=== PATIENT | female | born 1965 | race Caucasian/White ===

== ENCOUNTER → 2021-12-25 10:04 | Outpatient (CLI) | payer OTHER, SELFPAY | PROVIDERS: PCP Nurse Practitioner Family; Visit Provider Nurse Practitioner | DX: U07.1 COVID-19 (principal) | CPT/HCPCS: C9803; U0003; U0005 ==

== ENCOUNTER → 2022-02-20 13:49 | Outpatient (CLI) | payer BC, SELFPAY ==
--- NOTE | 2022-02-20 | CA_ITS ---
FINAL REPORT TECHNIQUE: Ultrasound images of the deep venous system were obtained from the left groin to the calf veins. CLINICAL HISTORY: Left lower back pain thru left leg to ankle FINDINGS: The deep venous system is normally compressible. Normal flow is identified. IMPRESSION: No evidence of left lower extremity DVT. Reviewed, Interpreted and Dictated by Michael Villarreal MD Transcribed by Sergio Camacho Authenticated by Michael Villarreal MD on 02/20/2022 03:58:45 PM [facility]
== END ==
PROVIDERS: PCP Nurse Practitioner Family; Visit Provider Nurse Practitioner Family
DX: M79.605 Pain in left leg (principal)
CPT/HCPCS: 93971

== ENCOUNTER → 2022-12-12 09:24 | Outpatient (CLI) | payer BC, SELFPAY ==
--- NOTE | 2022-12-12 09:30 | XR_ITS ---
FINAL REPORT CLINICAL HISTORY: RT ANKLE PAIN FINDINGS: Right ankle Three views were obtained. There is no acute fracture or dislocation. The joint spaces appear normal. No soft tissue abnormality is identified. There is a plantar calcaneal spur. IMPRESSION: No acute process. Reviewed, Interpreted and Dictated by Geovanny Riggs III, MD Transcribed by Birdie Blackwell Authenticated and [facility]
== END ==
PROVIDERS: PCP Nurse Practitioner Family; Visit Provider Nurse Practitioner Family
DX: M25.571 Pain in right ankle and joints of right foot (principal)
CPT/HCPCS: 73610

== ENCOUNTER 2025-07-10 12:54 | Emergency (ER) | payer OTHER, SELFPAY ==
[2025-07-10] VITALS (10 sets, daily range): BP systolic 108–146; BP diastolic 55–86; PULSE 60–76; RESP 9–17; TEMP 36.6–36.8; O2SAT 95–100; BMI 25.1
--- NOTE | 2025-07-10 13:06 | ECG_ITS ---
APPROVED REPORT Exam: Resting ECG HR:57 bpm ECG Measurements Heart Rate 57 AXES DC 149 P 79 QRSd 93 QRS 88 QT 395 T 71 QTc 389 Conclusion SINUS BRADYCARDIA BORDERLINE ECG UNCONFIRMED REPORT Electronically signed by : ALVARO MELENDEZ, 07/10/2025 23:43:05
--- OUTSIDE RECORDS SUMMARY | 2025-07-10 13:13 | XMS_ITS | Encounter Summary ---
Author Organization Healthcare Address [address] [place] [address] Care Team Providers Care Juice Bar Team Member Name Role Phone Omid Allen MD Primary Care Provider [phone] Edy Valdes APRN Primary Care Provider [phone] Reason for Visit * Reason Comments Med Refill Encounter Details Date Type Department Care Team (Late st Contact Info) Description 05/29/2022 Refill [facility] [address], [address] [place] [address] Cherelle Samuel MD [address] [place] [address] Seropositive rheumatoid arthritis of multiple sites (CMS/[facility]) Social History Tobacco Use Types Packs/Day Years Used Date Smoking Tobacco: Former Smokeless Tobacco: Current Comments:Current vape user Alcohol Use Standard Drinks/Week Comments Yes 0 (1 standard drink = 0.6 oz pure alcohol) Alcoholic Drinks/day: Minimum alcohol consumption PHQ-2 Answer Date Recorded Patient Health Questionnaire-2 Score 0 12/31/2021 Comments Unknown Sex and Gender Information Value Date Recorded Sex Assigned at Not on file Legal Sex Female 7:38 PM EDT Gender Identity Not on file Sexual Orientation Not on file documented as of this encounter Plan of Treatment Upcoming Encounters Date Type Department Care Team (Late st Contact Info) Description 08/31/2025 10:30 AM EDT Office Visit [facility] [address] [place] [address] Mason Barraza, DRYWALL WORKER [address] [place] [address] documented as of this encounter Visit Diagnoses Diagnosis Seropositive rheumatoid arthritis of multiple sites (CMS/HCC) documented in this encounter Additional Health Concerns Assessment Noted Time A fall risk assessment has been complete d for the patient 12/31/2021 9:52 AM EST documented as of this encounter Care Teams Juice Bar Team Member Relationship Specialty Start Date End Date Omid Allen MD [address] [place] [id number] PCP - General 04/12/21 01/15/23 Edy Valdes APRN [address] [place] [id number] PCP - General 01/16/23 documented as of this encounter
--- OUTSIDE RECORDS SUMMARY | 2025-07-10 13:14 | XMS_ITS | Clinical Summary ---
Author Organization Healthcare Address [address] [place] [address] Care Team Providers Care Coal Hiker Name Role Phone Edy Valdes Chan MENDIETA Primary Care Provider [phone] Allergies No known active allergies Medications Calcium Carb-Cholecalcifero l 500-600 MG-UNIT tablet Take by mouth 1 (one) time each day. 7 Active levothyroxine (Synthroid, Levoxyl) 75 MCG tablet Take 1 tablet (75 mcg) by mouth 1 (one) time each day. 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 Do not crush, chew, or split. 180 tablet 1 5 Active gabapentin (Neurontin) 300 MG capsuleIndications: Fibromyalgia Take 1 capsule (300 mg) by mouth in the morning and 1 capsule (300 mg) in the evening and 1 capsule (300 mg) before bedtime. 270 capsule 1 5 Active etanercept (Enbrel SureClick) 50 MG/ML injectionIndication s:Seropositive rheumatoid arthritis of multiple sites (CMS/HCC) Inject 1 mL (50 mg) under the skin 1 (one) time per week. 4 mL 7 5 Active Active Problems Problem Noted Date Diagnosed Date Osteoarthritis 11/02/2019 Osteopenia 10/04/2018 Elevated liver enzymes 04/20/2018 Osteoarthritis of shoulders, bilateral 7 Goiter 10/20/2016 Rheumatoid arthritis 10/20/2016 Knee pain 03/02/2015 Rotator cuff dysfunction 03/02/2015 Elevated glucose 12/22/2014 Lumbago 12/22/2014 Immunizations Immunization Administration Dates Next Due Influenza, Unspecified 11/27/2014 Edgardo COVID-19 Vaccine (Blue Cap) 18+ 07/18/20 21 MMR 08/28/2008 Pneumococcal Polysaccharide PPV23 11/27/2014 Varicella 08/28/2008 Family History Medical History Relation Name Comments Colon cancer Father Conversions - Other Father Blockage of coronary artery of heart Diabetes Maternal Grandmother COPD Mother Hypertension Other Relation Name Status Comments Father Maternal Grandmother Mother Other Social History Tobacco Use Types Packs/Day Years Used Date Smoking Tobacco: Former Smokeless Tobacco: Never Tobacco Cessation:Counseling Given: Not Answered Comments:Current vape user Alcohol Use Standard Drinks/Week Comments Not Currently 0 (1 standard drink = 0.6 oz pure alcohol) Alcoholic Drinks/day: Minimum alcohol consumption PHQ-2 Answer Date Recorded Patient Health Questionnaire-2 Score 0 02/15/2025 PHQ-2A Answer Date Recorded Patient Health Questionnaire-2 Score 0 07/17/2023 Comments Unknown Sex and Gender Information Value Date Recorded Sex Assigned at Not on file Legal Sex Female 7:38 PM EDT Gender Identity Not on file Sexual Orientation Not on file Last Filed Vital Signs Vital Sign Reading Time Taken Comments Blood Pressure 107/71 02/15/2025 12:23 PM EDT Pulse 66 02/15/2025 12:23 PM EDT Temperature 36.4 C (97.5 F) 02/15/2025 12:23 PM EDT Respiratory Rate 16 02/15/2025 12:23 PM EDT Oxygen Saturation 95% 02/15/2025 12:23 PM EDT Inhaled Oxygen Concentration - - Weight 71.3 kg (157 lb 3 oz) 02/15/2025 12:23 PM EDT Height 165.1 cm (5' 5 ) 02/15/2025 12:23 PM EDT Body Mass Index 26.16 02/15/2025 12:23 PM EDT Plan of Treatment Upcoming Encounters Date Type Department Care Team (Late st Contact Info) Description 08/31/2025 10:30 AM EDT Office Visit [facility] Medicine Specialties [address] [place] [address] Mason Barraza W, TELECOMMUNICATIONS MANAGER [address] [place] [address] Health Maintenance Due Date Last Done Comments [facility]-HIV Screening 1963 [facility]-/Child/Adol SDOH Screenings 1963 [facility]- SDOH Screenings 1981 [facility]-Adult SDOH Screenings 1981 [facility]-DTaP,Tdap,and Td Vaccines (1 - Tdap) 1982 [facility]-Pap Smear 1984 [facility]-Cervical Cancer Screening 1993 [facility]-HPV/Cotest 1993 CT Colonography 2008 Colonoscopy 2008 FIT-DNA 2008 FIT 2008 FOBT 2008 Sigmoidoscopy 2008 [facility]-Colorectal Cancer Screening 2008 [facility]-Breast Cancer Screening 2013 [facility]-Zoster Vaccines (1 of 2) 2013 08/28/2008 [facility]-Pneumococcal Vaccine: 50+ Years (2 of 2 - PCV) 11/27/2015 11/27/2014 [facility]-BNTRR-22 Vaccine (2 - Edgardo risk series) 08/15/2021 07/18/2021 [facility]-RSV Vaccine: 60+ Years or (1 - Risk 60-74 years 1-dose series) 2023 [facility]-Influenza Vaccine (#1) 2025 11/27/2014 [facility]-Depression Screening 02/15/2026 02/15/2025 [facility]-Hepatitis C Screening Completed 06/06/2015 [facility]-Obesity Intervention Completed 025, 08/02/2024, 01/19/2024, Additional history exists HPV Vaccines Aged Out No longer eligi ble based on patient's age to complete this topic [facility]-HIB Vaccines Aged Out No longer e ligible based on patient's age to complete this topic [facility]-Hepatitis A Vaccines Aged Out No longer eligible based on patient's age to complete this topic [facility]-IPV Vaccines Aged Out No longer e ligible based on patient's age to complete this topic [facility]-Rotavirus Vaccines Aged Out No lo nger eligible based on patient's age to complete this topic Procedures Procedure Name Priority Date/Time Associated Diagnosis Comments HEPATITIS C ANTIBODY W/REFLEX TO HCV QUANT PCR Routine 06/06/2015 1:08 PM EDT from Last 3 Months or Most Recently Relevant to Health Maintenance Results * Hepatitis C Antibody (06/06/2015 1:08 PM EDT) Hepatitis C Antibody NEGATIVE Reference Range: Negative SUNQUEST 06/06/2015 1:08 PM EDT 06/06/2015 1:43 PM EDT Historical Provider LAB BLOOD ORDERABLES Trina nguyen Result SUNQUEST from Last 3 Months or Most Recently Relevant to Health Maintenance Insurance [facility] Care Teams Coal Hiker Relationship Specialty Start Date End Date Edy Valdes APRN [address] [place] [id number] PCP - General 01/16/23
--- NOTE | 2025-07-10 13:15 | XR_ITS ---
FINAL REPORT TECHNIQUE: Single view chest CLINICAL HISTORY: short of breath FINDINGS: A single view of the chest was obtained. The heart and mediastinum are within normal limits. The lungs are clear. There is no pneumothorax. IMPRESSION: No acute cardiopulmonary process. Reviewed, Interpreted and Dictated by Urmila Vo MD Transcribed by Shabnam Lucas Authenticated and [facility]
[2025-07-10] MEDS: 0.9 % SODIUM CHLORIDE 1000ML 1,000 ML 999 ML IV (13:27)
[2025-07-10] MEDS: KETOROLAC 30MG/ML VIAL 30 MG IV (13:27)
--- NOTE | 2025-07-10 13:29 | CA_ITS ---
FINAL REPORT TECHNIQUE: Compression mahajan scale and Doppler evaluation CLINICAL HISTORY: BURNING/NUMBNESS LLE,NKI FINDINGS: Femoral and popliteal veins show normal compressibility and flow. Visualized portion of the calf veins are patent by Doppler exam. IMPRESSION: No evidence of left lower extremity deep venous thrombosis Reviewed, Interpreted and Dictated by Urmila Vo MD Transcribed by Viri Metz Authenticated and [facility]
[2025-07-10 13:30] LABS: Hematocrit 43.8 % (37.0-47.0); Hemoglobin 14.5 g/dL (12.2-16.2); Immature Granulocytes % 0.4 %; Mean Corpuscular HGB Conc 33.1 g/dL (31.8-35.4); Mean Corpuscular Hemoglobin 30.1 pg (27.0-31.2); Mean Corpuscular Volume 91.1 fl (81-99); Nucleated Red Blood Cells % 0 %; Platelet Count 232 K/mm3 (142-424); Red Blood Count 4.81 M/mm3 (4.20-5.40); Red Cell Distribution Width-SD 43.1 fL; White Blood Count 7.8 K/mm3 (4.8-10.8)
--- NOTE | 2025-07-10 13:32 | HMH.EDGENADL ---
Discharge Plan Disposition Patient Disposition: Home, Self-Care Referrals Follow up/Referrals: Edy Valdes APRN [Primary Care Provider, Medical] - See instructions Activity Restrictions/Add. Instructions Additional Instructions/Restrictions: Increase fluids and rest. Continue to take your blood pressure reading at home. Please call your PCP tomorrow for an appointment. Return to the ED if any problems or concerns. Clinical Impressions Clinical Impression: Fatigue Stand Alone Forms Stand Alone Forms: Work/School Release Instructions Patient Instructions: DI for Fatigue Print Language Print Language: Sinhala Discharge ED Provider: Jayson Ortez General Adult HPI <Serenity Hensley (ED), ODD JOBS DAY WORKER - Last Filed: 07/10/25 15:28> General Chief complaint: Weakness Stated complaint: Low BP, blood clot, abnormal ekg Time Seen by Provider: 07/10/25 13:07 Mode of Arrival: Ambulatory Source of Information: Patient Description of Symptoms (Recalled from ER Triage Doc. by RN): patient states she has been feeling tired and weak with headache since thursday . she reports she worked 7 days last week. she went to he PCP office today and they told her that her blood pressure was extremly low systolic in the 80s. on arrival to ed bp is 137/65. she also reports she has been getting dizzy when ambulating History of Present Illness HPI narrative: 59-year-old female presents to the ED from [facility]'s office. Patient states that she has been feeling tired and weak with a headache since Thursday. She reports she worked 7 straight days and then had a day off. She went to her PCP office today and told they told her her blood pressure was low her systolic was 80. On arrival to the ED her blood pressure is 137/65. Patient states that she felt tired and weak yesterday so they checked her blood pressure and the highest it was yesterday was 93/58. The family states that her blood pressure was in the 80s most of yesterday and she had a headache. Family states that they do not know when the last time her thyroid was checked. She did have her thyroid removed due to a goiter. She also has history of RA and osteoarthritis. She does take gabapentin and diclofenac for this. Related Data Allergies Allergy/AdvReac Type Severity Reaction Status Date / Time No Known Allergies Allergy Verified 07/10/25 13:17 PFSH <Serenity Hensley (ED), ODD JOBS DAY WORKER - Last Filed: 07/10/25 15:28> [facility] Disclaimer: The information contained in this section may have been updated after the patient was seen, as this information can be updated by other users. Social History (Updated 07/10/25 @ 15:28 by Serenity Hensley (ED), ODD JOBS DAY WORKER) Smoking Status: Current every day smoker alcohol intake: former current occupational status: other Travel in the last 8 weeks?: None Have you lived/traveled outside US in past 30 days?: No Contact w/someone who lives/traveled outside US past 30 days?: No Exposure to someone with infectious disease in past 14 days?: No Do you have a fever (greater than 100.4 F or 38 C)?: No Have you tested positive for COVID-19?: No Exposed to someone with COVID-19 in past 14 days?: No Do you have a sore throat?: No Do you have a cough?: No Do you have any weakness?: No Do you have any diarrhea?: No Are you experiencing any unusual bleeding?: No Do you have any muscle aches/pain?: No Do you have any abdominal pain?: No Are you experiencing loss of taste or smell?: No <Serenity Hensley (ED), ODD JOBS DAY WORKER - Last Filed: 07/10/25 15:28> ROS Obtained: Yes Systems reviewed as appropriate & no additional complaints except as documented Constitutional Constitutional: Reports as per HPI Physical Exam <Serenity Hensley (ED), ODD JOBS DAY WORKER - Last Filed: 07/10/25 15:28> General General appearance: alert and in no apparent distress Head Head exam: atraumatic and normocephalic Eye Eye exam: Present normal appearance, PERRL and EOMI ENT ENT exam: Present normal oropharynx and mucous membranes moist Neck Neck exam: Present full ROM and trachea midline Respiratory Respiratory exam: Present normal lung sounds bilaterally Cardiovascular Cardiovascular exam: Present regular rate, normal rhythm, normal heart sounds, +S1 and +S2 Abdominal Exam Abdominal exam: Present soft and normal bowel sounds Extremities Exam Extremities exam: Present normal inspection, full ROM and normal capillary refill Neurological Exam Neurological exam: Present alert and oriented X3 Skin Skin exam: Present warm, dry and intact Medical Decision Making <Serenity Hensley (ED), ODD JOBS DAY WORKER - Last Filed: 07/10/25 15:28> Medical Records Screening: Per USPSTF and CDC recommendations, given the prevalence of disease in our region, it is our hospital?s policy to screen for HIV and viral Hepatitis for all patients aged 18 and over and those with ongoing risk factors. Miguel Inquiry Pt receiving controlled substance: No Miguel was queried for this patient: No Vital Signs: 07/10/25 13:04 07/10/25 13:10 07/10/25 13:10 Temperature 98.2 F Temperature Source Oral Pulse Rate 63 70 Pulse Rate [Right Radial] 63 Respiratory Rate 16 17 Blood Pressure 137/65 146/86 H Blood Pressure [Right Arm] 137/65 Blood Pressure Mean [Right Arm] 89 Blood Pressure Source Blood Pressure Source [Right Arm] Automatic Cuff Blood Pressure Position Blood Pressure Position [Right Arm] Supine 02 Sat by Pulse Oximetry 97 98 95 Oxygen Delivery Method Room Air 07/10/25 13:20 07/10/25 13:31 07/10/25 13:40 Temperature Temperature Source Pulse Rate 71 76 69 Pulse Rate [Right Radial] Respiratory Rate 11 L 12 9 L Blood Pressure 130/76 114/66 108/55 L Blood Pressure [Right Arm] Blood Pressure Mean [Right Arm] Blood Pressure Source Blood Pressure Source [Right Arm] Blood Pressure Position Blood Pressure Position [Right Arm] 02 Sat by Pulse Oximetry 97 97 100 Oxygen Delivery Method 07/10/25 13:50 07/10/25 14:00 07/10/25 14:10 Temperature Temperature Source Pulse Rate 67 61 Pulse Rate [Right Radial] Respiratory Rate 11 L 13 11 L Blood Pressure 114/75 119/67 131/65 Blood Pressure [Right Arm] Blood Pressure Mean [Right Arm] Blood Pressure Source Blood Pressure Source [Right Arm] Blood Pressure Position Blood Pressure Position [Right Arm] 02 Sat by Pulse Oximetry 97 97 Oxygen Delivery Method 07/10/25 14:20 07/10/25 15:01 Temperature 97.9 F Temperature Source Oral Pulse Rate 60 66 Pulse Rate [Right Radial] Respiratory Rate 10 L 16 Blood Pressure 113/74 128/67 Blood Pressure [Right Arm] Blood Pressure Mean [Right Arm] Blood Pressure Source Automatic Cuff Blood Pressure Source [Right Arm] Blood Pressure Position Supine Blood Pressure Position [Right Arm] 02 Sat by Pulse Oximetry 97 Oxygen Delivery Method Room Air Lab Data Lab Results 07/10/25 13:13: WBC 7.8, RBC 4.81, Hgb 14.5, Hct 43.8, MCV 91.1, MCH 30.1, MCHC 33.1, RDW 12.9, Plt Count 232, MPV 11.7 H, Neut % (Auto) 63.8, Lymph % (Auto) 24.9, Bartow % (Auto) 6.6, Eos % (Auto) 3.8, Baso % (Auto) 0.5, Neut # (Auto) 5.0, Lymph # (Auto) 2.0, Bartow # (Auto) 0.5, Eos # (Auto) 0.3, Baso # (Auto) 0.0, Sodium 140, Potassium 3.6, Chloride 102, Carbon Dioxide 30, Anion Gap 11.6, BUN 15, Creatinine 1.00, Estimated Creat Clear 64, Estimated GFR 56 L, Est GFR ( Amer) 68, Glucose 123 H, Calcium 9.6, Magnesium 1.9, Total Bilirubin 0.9, AST 28, ALT 22, Alkaline Phosphatase 80, Troponin I < 0.01, Total Protein 8.5 H, Albumin 4.8, Globulin 3.7 H, Albumin/Globulin Ratio 1.3, Lipase 70, TSH 4.92 H, Free T4 1.45 07/10/25 13:13 07/10/25 13:13 Orders (Tests/Meds): ED MEDICATIONS Discontinued Medications Generic Name Dose Route Start Last Admin Trade Name Freq PRN Reason Stop Dose Admin Sodium Chloride 1,000 mls @ 999 mls/hr 07/10/25 13:14 07/10/25 13:27 Sod Chlor 0.9% 1000ml Bag IV 07/10/25 14:14 999 mls/hr .Q1H1M ONE Administration Ketorolac Tromethamine 30 mg 07/10/25 13:14 07/10/25 13:27 Ketorolac 30mg/Ml Vial IV 07/10/25 13:15 30 mg ONCE ONE Administration ORDERS Category Date Time Status Chest XR -- portable [XR chest portable] Stat Exams 07/10/25 13:15 Completed CBC [Complete Blood Count Auto Diff] Stat Lab 07/10/25 13:13 Completed Comprehensive Metabolic Panel Stat Lab 07/10/25 13:13 Completed Free T4 (Free Thyroxine) Stat Lab 07/10/25 13:13 Completed Lipase Stat Lab 07/10/25 13:13 Completed Magnesium Stat Lab 07/10/25 13:13 Completed TSH [Thyroid Stimulating Hormone] Stat Lab 07/10/25 13:13 Completed Triiodothyronine (T3) Free Stat Lab 07/10/25 13:13 Received Trop I [Troponin I] Stat Lab 07/10/25 13:13 Completed CA venous doppler LE LT Stat Y 07/10/25 13:29 Completed Medical Decision Narrative: patient is a 59-year-old female presenting to the emergency department for evaluation of low blood pressure at home and at PCP office but here on arrival systolic was 137, headache. Patient is hemodynamically stable and nontoxic-appearing upon arrival, afebrile. Differential diagnosis includes orthostatic hypotension, fatigue, thyroid abnormality, electrolyte disturbance. Workup will be conducted with hematologic labs, specific imaging. Initial inventions include crystalloid bolus. Initial workup reviewed by me hematologic labs are remarkable for slightly low TSH. Otherwise unremarkable labs.. Imaging informally interpreted by me and remarkable for nothing acute Formal imaging read remarkable for for nothing acute. Upon repeat evaluation patient's pain is improved. Patient told to follow-up with her PCP. She was also told if her blood pressure goes down again to return to the ER or call her PCP. Patient safe for discharge home. <Jayson Ortez MD - Last Filed: 07/10/25 19:24> Vital Signs: 07/10/25 13:04 07/10/25 13:10 07/10/25 13:10 Temperature 98.2 F Temperature Source Oral Pulse Rate 63 70 Pulse Rate [Right Radial] 63 Respiratory Rate 16 17 Blood Pressure 137/65 146/86 H Blood Pressure [Right Arm] 137/65 Blood Pressure Mean [Right Arm] 89 Blood Pressure Source Blood Pressure Source [Right Arm] Automatic Cuff Blood Pressure Position Blood Pressure Position [Right Arm] Supine 02 Sat by Pulse Oximetry 97 98 95 Oxygen Delivery Method Room Air 07/10/25 13:20 07/10/25 13:31 07/10/25 13:40 Temperature Temperature Source Pulse Rate 71 76 69 Pulse Rate [Right Radial] Respiratory Rate 11 L 12 9 L Blood Pressure 130/76 114/66 108/55 L Blood Pressure [Right Arm] Blood Pressure Mean [Right Arm] Blood Pressure Source Blood Pressure Source [Right Arm] Blood Pressure Position Blood Pressure Position [Right Arm] 02 Sat by Pulse Oximetry 97 97 100 Oxygen Delivery Method 07/10/25 13:50 07/10/25 14:00 07/10/25 14:10 Temperature Temperature Source Pulse Rate 67 61 Pulse Rate [Right Radial] Respiratory Rate 11 L 13 11 L Blood Pressure 114/75 119/67 131/65 Blood Pressure [Right Arm] Blood Pressure Mean [Right Arm] Blood Pressure Source Blood Pressure Source [Right Arm] Blood Pressure Position Blood Pressure Position [Right Arm] 02 Sat by Pulse Oximetry 97 97 Oxygen Delivery Method 07/10/25 14:20 07/10/25 15:01 Temperature 97.9 F Temperature Source Oral Pulse Rate 60 66 Pulse Rate [Right Radial] Respiratory Rate 10 L 16 Blood Pressure 113/74 128/67 Blood Pressure [Right Arm] Blood Pressure Mean [Right Arm] Blood Pressure Source Automatic Cuff Blood Pressure Source [Right Arm] Blood Pressure Position Supine Blood Pressure Position [Right Arm] 02 Sat by Pulse Oximetry 97 Oxygen Delivery Method Room Air Lab Data Lab Results 07/10/25 13:13: WBC 7.8, RBC 4.81, Hgb 14.5, Hct 43.8, MCV 91.1, MCH 30.1, MCHC 33.1, RDW 12.9, Plt Count 232, MPV 11.7 H, Neut % (Auto) 63.8, Lymph % (Auto) 24.9, Bartow % (Auto) 6.6, Eos % (Auto) 3.8, Baso % (Auto) 0.5, Neut # (Auto) 5.0, Lymph # (Auto) 2.0, Bartow # (Auto) 0.5, Eos # (Auto) 0.3, Baso # (Auto) 0.0, Sodium 140, Potassium 3.6, Chloride 102, Carbon Dioxide 30, Anion Gap 11.6, BUN 15, Creatinine 1.00, Estimated Creat Clear 64, Estimated GFR 56 L, Est GFR ( Amer) 68, Glucose 123 H, Calcium 9.6, Magnesium 1.9, Total Bilirubin 0.9, AST 28, ALT 22, Alkaline Phosphatase 80, Troponin I < 0.01, Total Protein 8.5 H, Albumin 4.8, Globulin 3.7 H, Albumin/Globulin Ratio 1.3, Lipase 70, TSH 4.92 H, Free T4 1.45 Orders (Tests/Meds): ED MEDICATIONS Discontinued Medications Generic Name Dose Route Start Last Admin Trade Name Karina PRN Reason Stop Dose Admin Sodium Chloride 1,000 mls @ 999 mls/hr 07/10/25 13:14 07/10/25 13:27 Sod Chlor 0.9% 1000ml Bag IV 07/10/25 14:14 999 mls/hr .Q1H1M ONE Administration Ketorolac Tromethamine 30 mg 07/10/25 13:14 07/10/25 13:27 Ketorolac 30mg/Ml Vial IV 07/10/25 13:15 30 mg ONCE ONE Administration ORDERS Category Date Time Status Chest XR -- portable [XR chest portable] Stat Exams 07/10/25 13:15 Completed CBC [Complete Blood Count Auto Diff] Stat Lab 07/10/25 13:13 Completed Comprehensive Metabolic Panel Stat Lab 07/10/25 13:13 Completed Free T4 (Free Thyroxine) Stat Lab 07/10/25 13:13 Completed Lipase Stat Lab 07/10/25 13:13 Completed Magnesium Stat Lab 07/10/25 13:13 Completed TSH [Thyroid Stimulating Hormone] Stat Lab 07/10/25 13:13 Completed Triiodothyronine (T3) Free Stat Lab 07/10/25 13:13 Received Trop I [Troponin I] Stat Lab 07/10/25 13:13 Completed CA venous doppler LE LT Stat Y 07/10/25 13:29 Completed Medical Decision Narrative: patient is a 59-year-old female presenting to the emergency department for evaluation of low blood pressure at home and at PCP office but here on arrival systolic was 137, headache. Patient is hemodynamically stable and nontoxic-appearing upon arrival, afebrile. Differential diagnosis includes orthostatic hypotension, fatigue, thyroid abnormality, electrolyte disturbance. Workup will be conducted with hematologic labs, specific imaging. Initial inventions include crystalloid bolus. Initial workup reviewed by me hematologic labs are remarkable for slightly low TSH. Otherwise unremarkable labs.. Imaging informally interpreted by me and remarkable for nothing acute Formal imaging read remarkable for for nothing acute. Upon repeat evaluation patient's pain is improved. Patient told to follow-up with her PCP. She was also told if her blood pressure goes down again to return to the ER or call her PCP. Patient safe for discharge home. I was consulted by the MONY, and we discussed the complexity of the problems being addressed. I approve the treatment and management plan for this patient's care in the emergency department, thus performing a substantive portion of the medical decision making. Jayson Ortez MD Critical Care <Serenity Hensley (ED), ODD JOBS DAY WORKER - Last Filed: 07/10/25 15:28> Critical Care Time Critical Care Time: No
[2025-07-10 13:34] LABS: Albumin Level 4.8 g/dl (3.5-5.0); Chloride 102 mmol/L (98-107); Potassium 3.6 mmoL/L (3.5-5.1); Sodium 140 mmol/L (136-145)
[2025-07-10 13:37] LABS: Alanine Aminotransferase 22 U/L (12-78); Albumin/Globulin Ratio 1.3 (1.1-1.8); Alkaline Phosphatase 80 U/L (38-126); Anion Gap 11.6 mEq/L (5-15); Aspartate Amino Transferase 28 U/L (14-36); Bilirubin,Total 0.9 mg/dl (0.2-1.3); Blood Urea Nitrogen 15 mg/dl (7-17); Calcium 9.6 mg/dl (8.4-10.2); Carbon Dioxide 30 mmol/L (22.0-30.0); Creatinine Clearance Estimated 64 mL/min (50-200); Creatinine,Serum 1.00 mg/dl (0.52-1.04); Estimated Glomerular Filt Rate 56 ml/min (>60); GFR (African American) 68 ML/MIN (>60); Globulin 3.7 g/dL (1.3-3.2); Glucose 123 mg/dl (74-100); Lipase 70 U/L (23-300); Magnesium 1.9 mg/dl (1.6-2.3); Total Protein,Serum 8.5 g/dl (6.3-8.2)
[2025-07-10 14:01] LABS: Troponin I < 0.01 ng/ml (0.00-0.034)
[2025-07-10 14:06] LABS: Free T4 (Free Thyroxine) 1.45 ng/dl (0.78-2.19)
[2025-07-10 14:09] LABS: Thyroid Stimulating Hormone 4.92 uIU/mL (0.465-4.68)
[2025-07-11 08:17] LABS: Triiodothyronine (T3) Free 2.1 pg/mL (2.0-4.4)
== END 2025-07-10 15:15 | disposition home or self-care (01) ==
PROVIDERS: Nurse Practitioner; Emergency Provider Student in an Organized Health Care Education/Training Program; PCP Nurse Practitioner Family
DX: R00.1 Bradycardia, unspecified (principal); I95.9 Hypotension, unspecified; R53.83 Other fatigue; R51.9 Headache, unspecified; F17.210 Nicotine dependence, cigarettes, uncomplicated
CPT/HCPCS: 71045; 80053; 83690; 83735; 84439; 84443; 84481; 84484; 85025; 93005; 93971; 96361; 96374; 99285; J1885; J7030

== ENCOUNTER 2025-07-11 14:19 | Outpatient (CLI) | payer OTHER, SELFPAY ==
--- OUTSIDE RECORDS SUMMARY | 2025-07-11 14:22 | XMS_ITS | Encounter Summary ---
Author Organization Healthcare Address [address] [place] [address] Care Team Providers Care Health Service Worker Name Role Phone Omid Allen MD Primary Care Provider Edy Valdes APRN Primary Care Provider [phone]- [phone] Reason for Visit * Reason Comments Med Refill Encounter Details Date Type Department Care Team (Late st Contact Info) Description 05/29/2022 Refill [facility] [address], [address] [place] [address] Cherelle Samuel MD [address] [place] [address] Seropositive rheumatoid arthritis of multiple sites (CMS/[facility]) Social History Tobacco Use Types Packs/Day Years [...] Description 08/31/2025 10:30 AM EDT Office Visit [facility] [address], [address] [place] [address] Mason Barraza, ROVING FRAME TENDER [address] [place] [address] documented as of this encounter Visit Diagnoses Diagnosis Seropositive rheumatoid arthritis of multiple sites (CMS/HCC) documented in this encounter Additional Health Concerns Assessment Noted Time A fall risk assessment has been complete d for the patient 12/31/2021 9:52 AM EST documented as of this encounter Care Teams Health Service Worker Relationship Specialty Start Date End Date Omid Allen MD [address] [place] [id number] PCP - General 04/12/21 01/15/23 Edy Valdes APRN [address] [place] [address] PCP - General 01/16/23 documented as of this encounter
--- OUTSIDE RECORDS SUMMARY | 2025-07-11 14:22 | XMS_ITS | Clinical Summary ---
Author Organization Healthcare Address [address] [place] [address] Care Team Providers Care Shot Man Name Role Phone Edy Valdes Chan MENDIETA Primary Care Provider [phone]- [phone] Allergies No known active allergies Medications Calcium [...] Description 08/31/2025 10:30 AM EDT Office Visit [facility] Special[facility] [address] [place] [address] Mason Barraza W, DENTAL EQUIPMENT REPAIRER [address] [place] [address] Health Maintenance Due Date Last [...] (2 of 2 - PCV) 11/27/2015 11/27/2014 [id number] Vaccine (2 - Edgardo risk series) 08/15/2021 [...] Most Recently Relevant to Health Maintenance Insurance [employer] Care Teams Shot Man Relationship Specialty Start Date End Date Edy Valdes APRN [address] [place] [id number] PCP - General 01/16/23
[2025-07-11 16:23] LABS: Anion Gap 7.8 mEq/L (5-15); Blood Urea Nitrogen 16 mg/dl (7-17); Calcium 8.9 mg/dl (8.4-10.2); Carbon Dioxide 28 mmol/L (22.0-30.0); Chloride 106 mmol/L (98-107); Cholesterol 228 mg/dl (140-200); Creatinine,Serum 0.90 mg/dl (0.52-1.04); Estimated Glomerular Filt Rate 64 ml/min (>60); GFR (African American) 77 ML/MIN (>60); Glucose 82 mg/dl (74-100); HDL Cholesterol 42 mg/dl (40-60); Potassium 3.8 mmoL/L (3.5-5.1); Sodium 138 mmol/L (136-145); Triglycerides 195 mg/dl (30-150)
== END 2025-07-11 23:59 | disposition home or self-care (01) ==
LOC: LAB 14:20
PROVIDERS: PCP Nurse Practitioner Family; Visit Provider Nurse Practitioner
DX: I49.1 Atrial premature depolarization (principal); I47.19 Other supraventricular tachycardia; I49.3 Ventricular premature depolarization; I47.20 Ventricular tachycardia, unspecified; R00.1 Bradycardia, unspecified
CPT/HCPCS: 36415; 80048; 80061; 93270

== ENCOUNTER 2025-07-27 06:57 | Outpatient (CLI) | payer OTHER, SELFPAY ==
--- NOTE | 2025-07-27 | CA_ITS ---
APPROVED REPORT Exam: Exercise Treadmill Technologist: Ashtyn Liz Ht: 5 ft 5 in Wt: 156 lbs BSA: 1.78 m2 HR: 59 bpm BP: 124/73 mmHg Medical History Cardiac Risk Factors: Smoking Stress Test Details HR Resting HR: 59 bpm Max Heart Rate (APMHR): 159 bpm Target HR (85% APMHR): 135 bpm Recovery HR: 82 bpm BP Resting BP: 124.0/73.0 mmHg Recovery BP: 133.0/72.0 mmHg ECG Stress ECG Conclusion During mark protocol pt experinced no symptoms. No arrhythmias noted. Less than .5mm upsloping ST segment changes. Test stopped due to target HR and leg fatigue. Electronically signed by : Jaye Houston MD 07/28/2025 00:46:35
--- OUTSIDE RECORDS SUMMARY | 2025-07-27 06:58 | XMS_ITS | Clinical Summary ---
Author Organization Healthcare Address [address] [place] [address] Care Team Providers Care Bilingual Manager Name Role Phone Edy Valdes Chan MENDIETA Primary Care Provider +1- [phone] Allergies No known active allergies Medications Calcium [...] Description 08/31/2025 10:30 AM EDT Office Visit [facility] Medicine Specialties [address] [place] [address] Mason Barraza W, DISBURSING AGENT [address] [place] [address] Health Maintenance Due Date Last [...] (2 of 2 - PCV) 11/27/2015 11/27/2014 [id number] Vaccine (2 - Edgardo risk series) 08/15/2021 [...] 1:08 PM EDT 06/06/2015 1:43 PM EDT us Historical Provider LAB BLOOD ORDERABLES Final R esult Performing Organization Address City/State/[facility] Co de Phone Number SUNQUEST from Last 3 Months or Most Recently Relevant to Health Maintenance Insurance [facility] Care Teams Bilingual Manager Relationship Specialty Start Date End Date Edy Valdes APRN [address] [place] [id number] PCP - General 01/16/23
--- OUTSIDE RECORDS SUMMARY | 2025-07-27 06:58 | XMS_ITS | Encounter Summary ---
Author Organization Healthcare Address [address] [place] [address] Care Team Providers Care Feed Mixer Helper Name Role Phone Omid Allen MD Primary Care Provider Edy Valdes APRN Primary Care Provider [phone]- [phone] Reason for Visit * Reason Comments Med Refill Encounter Details Date Type Department Care Team (Late st Contact Info) Description 05/29/2022 Refill [facility] [address], [address] [place] [address] Cherelle Samuel MD [address] [place] [address] Seropositive rheumatoid arthritis of multiple sites (CMS/[facility]) Social History Tobacco Use Types Packs/Day Years [...] Description 08/31/2025 10:30 AM EDT Office Visit [facility] [address] [place] [address] Mason Barraza, COUNTER TOP MAKER [address] [place] [address] documented as of this encounter Visit Diagnoses Diagnosis Seropositive rheumatoid arthritis of multiple sites (CMS/HCC) documented in this encounter Additional Health Concerns Assessment Noted Time A fall risk assessment has been complete d for the patient 12/31/2021 9:52 AM EST documented as of this encounter Care Teams Feed Mixer Helper Relationship Specialty Start Date End Date Omid Allen MD [address] [place] [address] PCP - General 04/12/21 01/15/23 Edy Valdes APRN [address] [place] [address] PCP - General 01/16/23 documented as of this encounter
--- NOTE | 2025-07-27 07:00 | NM_ITS ---
APPROVED REPORT Exam: Nuclear Stress Test Indication: soa..fatigue Patient Location: Outpatient Stress Tech: Ashtyn MCKEON Tech:Lena Saxena SOBIA RT(R)(N) Ht: 5 ft 5 in Wt: 150 lbs Bra Size: 40d HR: 60 bpm BP: 124/73 mmHg BSA: 1.75 m2 TID: 1.25 BMI: 24.9 History: soa..fatigue Procedure: Patient exercised on Jeronimo protocol 6:08 minutes and sec, resting heart rate 60 bpm, resting blood pressure 124/73 mmHg, with exercise maximum heart rate achived was 138 bpm which is 86 % of the maximum predicted heart rate and blood pressure was 146/79 mmHg. Test was stopped due to fatigue. Patient denied any complaint of chest pain. Patient has Average exercise capacity, achieved 7.1 METs of workload on treadmill, the blood pressure response to exercise was Normal. Cardiac Stress and Resting SPECT Images: Cardiac Stress and Resting SPECT images were obtained using technetium 99m Myoview 31.3 mCi stress and 10.89 mCi at rest. Resting and stress imaging in supine and prone positions demonstrate no evidence of fixed or reversible perfusion defects. There is increase in transient ischemic dilatation ratio (TID 1.25), which may be suggestive of possible multivessel disease or balanced ischemia. Gated imaging demonstrates normal global and regional LV systolic function. LVEF is calculated at 58%. Conclusion: No evidence of fixed or reversible perfusion defects. There is increase in transient ischemic dilatation ratio (TID 1.25), which may be suggestive of possible multivessel disease or balanced ischemia. Gated imaging demonstrates normal global and regional LV systolic function. LVEF is calculated at 58%. Electronically signed by : Jaye Houston MD 07/28/2025 00:37:27
--- NOTE | 2025-07-27 09:30 | CA_ITS ---
APPROVED REPORT EXAM: Comprehensive 2D, Doppler, and color-flow Echocardiogram Certified Orthotist/Pedorthist: Sandra Amaral, RCS, RVS Ht: 5 ft 5 in Wt: 156lbs BSA: 1.78 BP: 129/71 mmHg Indications: CP, Smoker, Hypotension, Fatigue 2D Dimensions IVSd 0.92 cm LVEF (Visual) 56.90 % PWd 0.86 cm LA Volume 38.40 mL LVDd 4.36 cm LA Volume Index 21.10 mL/m2 (M/F) 16-34 LVDs 3.07 cm Left Atrium 2.76 cm M-Mode Dimensions RVDd 2.75 cm (0.9-2.6) LA Diam 3.91 cm (1.9-4.0) LVDd 3.85 cm (3.5-5.7) LVDs 2.39 cm (3.5-5.7) IVSd 1.04 cm (0.6-1.1) PWd 0.75 cm (0.6-1.1) EF (Teich) 68.70% EPSs 0.32 cm FS 37.90% EDV (Teich) 63.90 mL TAPSE 2.22 (<1.7) ESV (Teich) 20.00 mL LV Diastology E Decel Time 213 (160-240 msec) E/A Ratio 1.30 MED A' 11.00 cm/s LAT A' 6.70 cm/s Aortic Valve ERICK Index 1.09 cm2/m2 AoV Peak Jewel. 106.0 (50-130 cm/s) AO Peak GR. 4.50 mmHg AO Mean GR. 2.20 (<5 mmHg) AO VTI 25.5 (18-25 cm) ERICK (VTI) 1.98 (2.5-4.5 cm2) Mitral Valve MV A Velocity 47.0 (40-130 cm/s) E/A Ratio 1.30 Left Ventricle The left ventricle is normal size. Left ventricular systolic function is normal. The left ventricular ejection fraction is within the normal range. There is normal left ventricular wall thickness. There is normal LV segmental wall motion. The left ventricular diastolic function is normal. LVEF is 55% Right Ventricle The right ventricle is normal size. The right ventricular systolic function is normal. Atria The left atrium is mildly dilated. The right atrium size is normal. There is no color Doppler evidence of interatrial shunt. Aortic Valve The aortic valve is mildly thickened. There is no hemodynamically significant aortic valvular stenosis. No aortic regurgitation is present. Mitral Valve The mitral valve is normal in structure. No evidence of mitral valve stenosis. Mild mitral regurgitation is present. Tricuspid Valve The tricuspid valve leaflets are thin and pliable. Trace tricuspid regurgitation. There is insufficient TR jet to estimate RVSP. Pulmonic Valve The pulmonary valve is grossly normal in structure. Trace pulmonic valve regurgitation is present. Great Vessels The aortic root is normal in size. IVC is normal in size and collapses >50% with inspiration. Pericardium There is no pericardial effusion. Other Information Study Quality: Fair Conclusion Normal biventricular systolic function. Mild LA dilation. Mild MR. Electronically signed by : Jaye Houston MD 07/29/2025 16:18:54
[2025-07-27] MEDS: ISOTOPE MYOVIEW (PER STUDY) 1 DOSE IV (09:34)
[2025-07-27] MEDS: SODIUM CHLORIDE 0.9% 10ML SYR (RAD ONLY) 10 ML IV ×2 (09:34)
== END 2025-07-27 23:59 | disposition home or self-care (01) ==
LOC: RAD 06:57
PROVIDERS: PCP Nurse Practitioner Family; Visit Provider Nurse Practitioner
DX: I34.0 Nonrheumatic mitral (valve) insufficiency (principal); I51.7 Cardiomegaly; I95.9 Hypotension, unspecified; F17.200 Nicotine dependence, unspecified, uncomplicated; R94.39 Abnormal result of other cardiovascular function study; R00.1 Bradycardia, unspecified
CPT/HCPCS: 78452; 93017; 93018; 93306; A9502

== ENCOUNTER 2025-08-25 07:12 | Outpatient (CLI) | payer OTHER, SELFPAY ==
--- OUTSIDE RECORDS SUMMARY | 2025-08-25 07:15 | XMS_ITS | Data Portability ---
Author Organization Formerly [facility] Address [address] [place] [address] Care Team Providers Care Industrial Machine Assembler Name Role Phone [facility] MUSCULOSKELETAL DISEASES Certified Anesthesiologist Assistant KELSEY NARVAEZ Maintenance Mechanic Helper Assessment Encounter Date Assessment Date Assessment LastModified by Organization Details LastModified Time 07/11/2025 07/11/2025 -Medications were reviewed and any necessary updates and renewals were made, patient instructed to complete as prescribed. -The potential side effects of medications were discussed. -Counseling was done on care goals and ways to prevent future hospitalizatio ns. -Further treatment per orders listed below. [email or web address] Not available 07/11/2025 08:14:44 Plan of Treatment Reminders Order Date Submit Date Provider Last Modified By Organization Details Last Modified Time Details Appointments None recorded. Lab rapid strep group A, throat 2023 024 [facility], [address] [place] [address], [id number], 4 15:23:31 rapid SARS CoV + SARS CoV 2 Ag, QL IA, respiratory specimen 2023 024 [facility], [address] [place] [address], [id number], 4 11:48:23 rapid flu (A+B) 2023 024 [facility], [address] [place] [address], [id number], 4 11:48:24 rapid SARS CoV + SARS CoV 2 Ag, QL IA, respiratory specimen 2022 023 [facility], [address] [place] [address], [id number], 3 15:58:24 rapid flu (A+B) 2022 023 [facility], [address] [place] [address], [id number], 3 15:58:26 rapid strep group A, throat 2022 023 [facility], [address] [place] [address], [id number], 3 15:58:28 Referral cardiologis t referral - today at 145 2024 025 TONE Sanchez MD, [address] [place] [address], [address], 5 15:23:51 Procedures None recorded. Surgeries None recorded. Imaging electrocard iogram 2024 025 [facility], [address] [place] [address], [id number], 5 13:32:26 Medication Orders amoxicillin 500 mg tablet 2023 024 Pending sale to [facility], [address], [address], 5 11:46:15 prednisone 20 mg tablet 2023 024 Pending sale to [facility], [address], [address], 5 11:46:38 fluticasone propionate 50 mcg/actuati on nasal spray,suspe nsion 2023 024 Pending sale to [facility], [address], [address], 5 11:51:56 Zithromax Z-Suresh 250 mg tablet 2023 024 Pending sale to [facility], [address], [address], 4 14:24:57 Zithromax Z-Suresh 250 mg tablet 2022 023 Pending sale to [facility], [address], [address], 4 14:24:57 prednisone 20 mg tablet 2022 024 Pending sale to [facility], [address], [address], 5 11:46:38 Patient TargetsNo targets recorded. Patient InstructionsNo instructions recorded. 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 Referral for Br adycardia today at 145 Referring Physician: Edy Valdes, Family Medicine, Encounter Date: 07/11/2025 Results Created Date Observation Date Name Description Value Unit Range Abnormal Flag Note LastModifiedBy Organization Detail LastModifiedTime 10/09/2010/09/2023 rapid SARS CoV + SARS CoV 2 Ag, QL [place], respi rator y speci men SARS CoV antigen Negati ve Not Available [address], [address], 10/09/2023 15:38:57 10/09/20 23 10/09/2023 rapid flu (A+B) Flu negati ve Not Available [address], [address], 10/09/2023 15:39:03 10/09/20 23 10/09/2023 rapid flu (A+B) Type Both A & B Not Available [address], [address], 10/09/2023 15:39:03 10/09/20 23 10/09/2023 rapid strep group A, throa t Strep negati ve Not Available [address], [address], 10/09/2023 15:39:10 10/09/20 23 10/09/2023 rapid strep group A, throa t Culture No Not Available [address], [address], 10/09/2023 15:39:10 12/01/19 24 12/01/2023 rapid flu (A+B) Flu negati ve Not Available [address], [address], 12/01/2023 10:38:58 12/01/19 24 12/01/2023 rapid flu (A+B) Type Both A & B Not Available [address], [address], 12/01/2023 10:38:58 12/01/19 24 12/01/2023 rapid SARS CoV + SARS CoV 2 Ag, QL IA, respi rator y speci men SARS CoV antigen Negati ve Not Available [address], [address], 12/01/2023 10:38:52 05/09/20 24 05/09/2024 rapid strep group A, throa t Strep positi ve Not Available [address] [place], [address], 05/09/2024 15:20:02 05/09/20 24 05/09/2024 rapid strep group A, throa t Culture No Not Available [address], [place], [address], 05/09/2024 15:20:02 07/10/20 25 07/10/2025 elect rocar diogr am No observ ation record ed. [address], [address], 07/10/2025 13:14:22 07/10/20 25 07/10/2025 XR, chest , 2 view No observ ation record ed. [email or web address], [place], [address], 07/10/2025 14:18:00 07/10/20 25 07/10/2025 US, doppl er, venou s No observ ation record ed. [place] [address], [place], [address], 07/10/2025 16:39:13 07/10/20 25 07/10/2025 elect rocar diogr am No observ ation record ed. [place] [address], [place], [address], 07/11/2025 08:23:11 07/21/20 25 07/10/2025 elect rocar diogr am No observ ation record ed. [email or web address] [address], [address], 07/26/2025 09:19:31 07/28/20 25 07/27/2025 NM, myoca rdial perfu antonina scan, w/ stres s No observ ation [facility] ed. [email or web address] [address], [place], [address], 08/01/2025 15:50:49 07/28/20 25 07/27/2025 cardi ac stres s test No observ ation record ed. [facility] [address], [place], [address], 08/01/2025 14:40:55 07/29/20 25 07/27/2025 stres s echoc ardio gram with doppl er color flow (PROC ) No observ ation record ed. [facility] [address], [place], [address], 08/01/2025 14:37:43 Result Notes None recorded. Problems Name Problem SNOMED Code Status Onset Date Resolution Date Notes Provider Name and Address Organization Details Recorded Time Goiter 6665543 Active 2015 Mary Lou garcia [place] - [facility] 6 10:04:03 Hypothyroidism 81608637 Active 2015 Brittney Nobles, ACUTE CARE NURSE PRACTITIONER [address], [place], [address], [facility] - [facility] 6 10:31:42 Rheumatoid arthritis 17991548 Active 2015 Mary Lou garcia [place] - [facility] 6 10:04:55 Osteopenia 893204381 Active 2017 Brittney Nobles ACUTE CARE NURSE PRACTITIONER [address], [place], [address], [facility] - [facility] 8 20:53:47 Problem Notes None recorded. Procedures Surgical History Date Name Laterality Status Provider Name and Address Organization Details Recorded Time 07/11/20 25 Medication Reconcilliation completed Mickie Hutchinson [place] - [facility] 07/11/2025 08:14:45 10/04/20 18 Date of Last Mammogram completed Brittney Rincondemetri ACUTE CARE NURSE PRACTITIONER [address], [place], [address], [facility] - [facility] 10/05/2018 09:25:32 10/04/20 18 Most Recent Bone Density completed Brittney Venetia, ACUTE CARE NURSE PRACTITIONER [address], [place], [address], [place] - [facility] 10/04/2018 20:53:11 09/20/20 18 Date of Last Pap Smear completed Brittney Nobles APRN [address], [place], [address], [place] - [facility] 09/22/2018 14:22:49 08/22/20 15 Thyroidectomy completed Brittney Nobles APRN [address], [place], [address], [place] - [facility] 10/20/2016 10:31:17 Tonsillectomy completed Mary Lou Munroe [place] - [facility] 10/20/2016 10:08:33 Imaging Results None recorded. Procedure Notes None recorded. Medical Equipment None Reported. Allergies No known drug allergies Medications Name Sig Start Date Stop Date Status Note LastModified by Organization Details LastModified Time amoxicill in 500 mg capsule TAKE 1 CAPSULE BY MOUTH TWICE DAILY FOR 10 DAYS 07/10 completed Not Available Not Available Not Available prednison e 10 mg tablet TAKE 2 TABLETS BY MOUTH TWICE DAILY FOR 5 DAYS 12/01 completed Not Available Not Available Not Available azithromy elmira 250 mg tablet TAKE 2 TABLETS BY MOUTH ON DAY 1, AND THEN TAKE 1 TABLET BY MOUTH ONCE A DAY ON DAY 2 THROUGH DAY 5 05/09 completed Not Available Not Available Not Available ofloxacin 0.3 % eye drops INSTILL 1 DROP INTO AFFECTED EYE(S) BY OPHTHALM IC ROUTE 4 TIMES PER DAY 10/09 completed Not Available Not Available Not Available Keflex 500 mg capsule take 1 capsule (500 mg) by oral route every 12 hours for 10 days 03/27 completed Keflex 500 mg oral capsule; Recorded Status: Recorded on: 09/10/20 09 5:26PM;D iscontin ued Status: Disconti nued on: 03/27/20 10 10:15AM; User: [email or web address] Carreno on: 09/30/20 09;Print ed: 09/10/20 09 Not Available Not Available Not Available meloxicam 15 mg tablet 08/10 completed Not Available Not Available Not Available Medrol (Suresh) 4 mg tablets in a dose pack take as directed for 7 days 11/27 completed Medrol (Suresh) 4 mg oral tablets, dose pack;Pre scribe Status: Prescrib ed on: 08/23/20 14 2:45PM;D iscontin ued Status: Disconti nued on: 11/27/20 14 9:10AM;U ser: [email or web address] ;Est. Completi on: 08/30/20 14;Indic ation: Diffuse osteoart hritis - (715.09) ;Pharmac yVerifie d: 08/23/20 14 2:45PM Not Available Not Available Not Available prednison e 20 mg tablet TAKE 1 TABLET BY MOUTH TWICE DAILY FOR 5 DAYS 07/10 completed Not Available Not Available Not Available metronida zole 500 mg tablet Take 1 tablet every 12 hours by oral route for 7 days. 09/20 completed Not Available Not Available Not Available amoxicill in 500 mg tablet Take 1 tablet twice a day by oral route for 10 days. 07/10 completed Not Available Not Available Not Available levothyro xine 75 mcg tablet TAKE 1 TABLET BY MOUTH ONCE DAILY APPOINTM ENT REQUIRED FOR FUTURE REFILLS 2024 active Not Available Not Available Not Avai lable levothyro xine 88 mcg tablet 1 po qd 09/12 completed Not Available Not Available Not Available Depo-Prov era 150 mg/mL intramusc ular suspensio n inject 1 millilit er (150 mg) by intramus cular route every 3 months 09/20 completed Not Available Not Available Not Available methotrex ate sodium 2.5 mg tablet 09/20 completed Not Available Not Available Not Available ciproflox acin 0.3 % eye drops 2 drops qid 03/27 completed ciproflo xacin HCl 0.3 % ophthalm ic drops;Re corded Status: Recorded on: 09/02/20 08 10:04PM; Disconti nued Status: Disconti nued on: 03/27/20 10 10:15AM; User: [email or web address] Not Available Not Available Not Available Keflex 500 mg tablet 1 qid 09/10 completed Replaced /Retired Drug 500 mg oral tablet;R ecorded Status: Recorded on: 09/02/20 08 10:02PM; Disconti nued Status: Disconti nued on: 09/10/20 09 5:25PM;U ser: grossert Not Available Not Available Not Available gabapenti n 300 mg capsule TAKE 1 CAPSULE BY MOUTH THREE TIMES DAILY active Not Available Not Available No t Available diclofena c sodium 75 mg tablet,de layed release TAKE 1 TABLET BY MOUTH TWICE DAILY NEEDED FOR SEVERE PAIN DO NOT CRUSH, CHEW, OR SPLIT active Not Available Not Available No t Available folic acid 1 mg tablet TAKE 1 TABLET BY MOUTH ONCE DAILY active Not Available Not Available No t Available methimazo le 10 mg tablet take 1 tablet by oral route 3 times a day for 30 days 07/28 completed methimaz ole 10 mg oral tablet;P rescribe Status: Prescrib ed on: 08/14/20 15 11:56AM; Disconti nued Status: Disconti nued on: 07/28/20 16 9:51AM;U ser: [email or web address]; Est. Completi on: 10/13/20 15;Indic ation: Shanthiy roidism - ([id number]);Phar Jas fied: 08/14/20 15 11:56AM Not Available Not Available Not Available fluticaso ne propionat e 50 mcg/actua tion nasal spray,aric pension [place] 1 spray every day by intranas al route. 07/10 completed Not Available Not Available Not Available amoxicill in 875 mg-potass ium clavulana te 125 mg tablet TAKE 1 TABLET BY MOUTH EVERY 12 HOURS FOR 10 DAYS 09/12 completed Not Available Not Available Not Available Bactrim DS 800 mg-160 mg tablet take 1 tablet by oral route once daily for 10 days 12/17 completed Bactrim DS 800-160 mg oral tablet;R ecorded Status: Recorded on: 10/09/20 11 5:24PM;D iscontin ued Status: Disconti nued on: 12/17/19 12 1:16PM;U ser: [email or web address] ;Est. Completi on: 10/19/20 11;Indic ation: Stye - (373.11) ;Printed : 10/09/20 11 Not Available Not Available Not Available Depo-Prov era 150 mg/mL intramusc ular syringe 1 INJ. Q 3 MONTHS 07/06 completed Depo-Pro vera 150 mg/mL intramus cular syringe; Recorded Status: Recorded on: 09/02/20 08 10:04PM; Disconti nued Status: Disconti nued on: 07/06/20 14 9:29AM;U ser: haym Not Available Not Available Not Available nitrofura ntoin monohydra te/macroc rystals 100 mg capsule 09/12 completed Not Available Not Available Not Available Enbrel 50 mg/mL (1 mL) subcutane ous syringe inject 1 millilit er (50 mg) by subcutan eous route once weekly 09/12 completed Enbrel 50 mg/mL (0.98 mL) subcutan eous syringe; Recorded Status: Recorded on: 07/17/20 15 2:16PM;U ser: [email or web address] Not Available Not Available Not Available Mucinex D 60 mg-600 mg tablet,ex tended release take 1 tablet by oral route every 12 hours as needed for 10 days 04/24 completed Mucinex D 60-600 mg oral tablet extended release 12 hr;Recor ded Status: Recorded on: 10/17/20 10 3:06PM;D iscontin ued Status: Disconti nued on: 04/24/20 11 5:03PM;U ser: [email or web address] ;EstAlonzo Completi on: 11/06/20 10;Print ed: 10/17/20 10 Not Available Not Available Not Available methotrex ate 4 tabs on week one then increase 1 tab q weekly to a max of 8 tabs per week 10/20 completed methotre xate oral 2.5 mg;Recor ded Status: Recorded on: 11/27/20 14 9:10AM;U ser: [email or web address]; Indicati on: - (-5) Not Available Not Available Not Available fiber 08/10 completed Not Available Not Available Not Available Calcium 500 12/02 completed Not Available Not Available Not Available Enbrel SureClick 50 mg/mL (1 mL) subcutane ous pen injector once weekly active Not Available Not Available No t Available potassium chloride ER 20 mEq tablet,ex tended release take 1 tablet (20 meq) by oral route 2 times per day with food 10/20 completed antionette fagan chloride 20 mEq oral tablet extended release; Recorded Status: Recorded on: 08/14/20 15 11:17AM; User: [email or web address] Not Available Not Available Not Available Citrucel 09/20 completed Not Available Not Available Not Available Vitals Date Recorded Body height Body mass index (BMI) Body weight Body temperature Heart rate Oxygen saturation Oxygen saturation in Arterial blood by Pulse oximetry Respiratory rate Pain severity - 0-10 verbal numeric rating [Score] - Reported Systolic And Diastolic Provider Name and Address Organization Details Last Updated DateTime 4 165.1 cm 27.6 kg/m2 85600.3 3 g 99.2 [degF] 110 /min 96 % 96 % 18 /min 5 124/78 mm[Hg] Mickie Hutchinson [place] - [facility] 4 10:34:53 Date Recorded Body height Body mass index (BMI) Body weight Body temperature Heart rate Oxygen saturation Oxygen saturation in Arterial blood by Pulse oximetry Respiratory rate Pain severity - 0-10 verbal numeric rating [Score] - Reported Systolic And Diastolic Provider Name and Address Organization Details Last Updated DateTime 4 165.1 cm 26.3 kg/m2 84935.5 9 g 98.1 [degF] 87 /min 97 % 97 % 18 /min 0 120/78 mm[Hg] Mickie Hutchinson [place] - [facility] 4 14:37:49 Date Recorded Body weight Body temperature Heart rate Oxygen saturation Oxygen saturation in Arterial blood by Pulse oximetry Respiratory rate Pain severity - 0-10 verbal numeric rating [Score] - Reported Systolic And Diastolic Provider Name and Address Organization Details Last Updated DateTime 5 32668.8 g 98 [degF] 74 /min 97 % 97 % 18 /min 0 86/60 mm[Hg] Mickie Hutchinson [place] - [facility] 5 11:55:10 Date Recorded Body weight Heart rate Oxygen saturation Oxygen saturation in Arterial blood by Pulse oximetry Respiratory rate Pain severity - 0-10 verbal numeric rating [Score] - Reported Body temperature Systolic And Diastolic Provider Name and Address Organization Details Last Updated DateTime 5 85354.4 5 g 57 /min 98 % 98 % 18 /min 2 98.1 [degF] 110/68 mm[Hg] Mickie Hutchinson [place] - [facility] 5 08:21:01 Date Recorded Body height Body mass index (BMI) Body weight Body temperature Heart rate Oxygen saturation Oxygen saturation in Arterial blood by Pulse oximetry Respiratory rate Pain severity - 0-10 verbal numeric rating [Score] - Reported Systolic And Diastolic Provider Name and Address Organization Details Last Updated DateTime 3 165.1 cm 27.1 kg/m2 10228.5 6 g 97.9 [degF] 95 /min 97 % 97 % 18 /min 7 122/78 mm[Hg] Mickie Hutchinson [place] - [facility] 3 15:37:42 Social History Question Answer Notes LastModified by Organizat ion Details LastModified Time Tobacco Smoking Status Current Some Day Smoker Tiffanie Zayra garcia [place] - [facility] 08/10/2017 09:38:00 Do You Have An Advance Directive? No [email or web address] Information not available 10/20/2016 Are You Blind Or Do You Have Difficulty Seeing? No [email or web address] Information not available 10/20/2016 Is Blood Transfusion Acceptable In An Emergency? Yes [email or web address] Information not available 10/20/2016 What Is Your Level Of Caffeine Consumption? Occasional Information not available 10/20/2016 How Much Tobacco Do You Chew? None Information not available 10/20/2016 Are You Deaf Or Do You Have Serious Difficulty Hearing? No [email or web address] Information not available 10/20/2016 What Type Of Diet Are You Following? REGULAR Information not available 10/20/2016 Which Illicit Or Recreational Drugs Have You Used? None Information not available 01/12/2017 What Is The Highest Grade Or Level Of School You Have Completed Or The Highest Degree You Have Received? [id number] [email or web address] Information not available 09/20/2018 How Many Days Of Moderate To Strenuous Exercise, Like A Brisk Walk, Did You Do In The Last 7 Days? 0 [email or web address] Information not available 09/20/2018 On Those Days That You Engage In Moderate To Strenuous Exercise, How Many Minutes, On Average, Do You Exercise? 0 Information not available 09/20/2018 Have There Been Any Changes To Your Family Or Social Situation? No Information no t available 09/12/2022 How Hard Is It For You To Pay For The Very Basics Like Food, Housing, Medical Care, And Heating? [id number] [email or web address] Information not available 09/20/2018 What Is The Fluoride Status Of Your Home? Unknown Information not available 09/12/2022 Live Alone Or With Others? With Others [email or web address] Information not available 10/20/2016 Do You Have A Medical Power Of Director Of Undergraduate Admissions? No Information not available 09/12/2022 What Was The Date Of Your Most Recent Tobacco Screening? 07/10/2025 Information not available 07/10/2025 How Many Children Do You Have? 3 [email or web address] Information not available 10/20/2016 Performs Monthly Self-breast Exam? Yes [email or web address] Information no t available 10/20/2016 Do You Use Protection During Sex? Always [email or web address] Information not available 10/20/2016 What Is Your Relationship Status? [email or web address] Information not available 10/20/2016 Seat Belts Used Routinely Yes [email or web address] Information not available 10/20/2016 Are You Sexually Active? Yes [email or web address] Information not available 10/20/2016 Do You Have Smoke And Carbon Monoxide Detectors In Your Home? Yes Information not available 09/12/2022 At What Age Did You Start Smoking Tobacco? 12 [email or web address] Information not available 10/20/2016 Are You Passively Exposed To Smoke? Yes Information no t available 09/12/2022 General Stress Level Low [email or web address] Information not available 10/20/2016 Do You Use Sunscreen Routinely? No [email or web address] Information not available 10/20/2016 Has Tobacco Cessation Counseling Been Provided? Yes [email or web address] Information not available 08/10/2017 On What Date Was Tobacco Cessation Counseling Provided? 07/10/2025 Information not available 07/10/2025 How Many Years Have You Smoked Tobacco? 39 [email or web address] Information not available 10/20/2016 Do You Have Difficulty Walking Or Climbing Stairs? No [email or web address] Information not available 10/20/2016 Sex: Female Functional Status Question Answer Note LastModified by Organizat ion Details LastModified Time What is your level of alcohol consumption? None [email or web address] Information not available 10/20/2016 Are you currently employed? Yes [email or web address] Information not available 10/20/2016 Do you have access to reliable transportation? No Information not available 09/12/2022 Urinary incontinence assessment performed? Yes [email or web address] Information not available 08/10/2017 Are you able to walk independently without assistance or assistive devices? [email or web address] Information not available 06/29/2017 Do you have difficulty doing errands alone? No [email or web address] Information not available 10/20/2016 Are you able to care for yourself independently? 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 No [email or web address] Information not available 10/20/2016 What is your exercise level? None [email or web address] Information not available 10/20/2016 Mental Status Question Answer Note LastModified by Organizat ion Details LastModified Time Do you feel stressed (tense, restless, nervous, or anxious, or unable to sleep at night)? [id number] Information not available 09/20/2018 Do you have difficulty concentrating, remembering or making decisions? No [email or web address] Information no t available 10/20/2016 Family History Relationship Description Onset Age of this Age Resolved Age Notes LastModified by Organization Details LastModified Time Mother Chronic obstructive pulmonary disease [email or web address] Not available 2015 10:05:41 Father Malignant tumor of colon [email or web address] Not available 08/10 09:36:49 Maternal Grandmother Diabetes mellitus [email or web address] Not available 08/10 09:37:07 Paternal Grandmother Diabetes mellitus [email or web address] Not available 08/10 09:37:07 Medical History Condition Response Pancreatitis N Other N Atrial Fibrillation N congenital heart disease N Blood Diseases N Hyperthyroidism N Blood Transfusion N Rheumatoid arthritis N Erectile Dysfunction N amputation N Skin Lesions N Depression N Pneumonia N Incontinence N Murmur N Edema N Alzheimer's Disease N Migraine Headaches N Tobacco Abuse N Anxiety Disorder N Hemorrhoids N Obesity N Vision or Eye Problems N Arthritis Y Restless Leg Syndrome N Polyps N Infertility N Carpal Tunnel N Acid Reflux (GERD) N Cancer N Varicosities N Stroke N Tendonitis N Crohn's Disease N Hypercholesterolemia N Skin Cancer N Headaches N Fibromyalgia N Irritable Bowel Syndrome N Anal Fissure N Kidney Disease N Heart Problems N Hospitalizations Y Gallstones N Kidney or Bladder Problems N Goiter Y Acne N Eating Disorder N Garcia's Esophagus N Hypertriglyceridemia N Constipation N Embolism N Vitamin B12 Deficiency N Deviated Septum N AIDS/HIV N Myocardial Infarction N Asthma N Mitral Valve Disorders N Vertigo N Hepatitis N Thyroid Cancer N Neuropathy N History of DVT N Herniated Disc N Chicken Pox Y Von Willebrands Disease N Thrombophilias N Breast Cancer N Hernia N Plantar Fasciitis N Hypothyroidism Y Lung Disease N Defects or Inherited Disease N Breast Problem N Ovarian Cyst N Anesthesia Complications N Testosterone Deficiency N Interstitial Cystitis N Congenital Anomalies N Hypoglycemia N Blood clot N Vitamin D Deficiency N Cellulitis N Endometriosis N Bladder or Kidney Problems N Fracture N Panic Disorder N Schizophrenia N Concussion N Spina Bifida N Osteoarthritis N Parkinson's Disease N Disc Protrusion N STI N Esophagitis N Angina N Thyroid Problems N GI Problems N ADD/ADHD N Anemia N Multiple Sclerosis N Abnormal PAP N Lumbago N Mental Illness N Psychiatric Illness N Diabetes N Ovarian Cancer N Degenerative Disc Disease N Seizures/Epilepsy N Hyperlipidemia N Syncope N Insomnia N Eczema N Abuse/Domestic Violence N Attention Deficient Disorder N Dementia N Ulcerative colitis N Cerebrovascular Disease N Depression N Guillain-[place] N Sleep Apnea N Aneurysm N Bronchitis N Heart Disease N Hypertension N Pre-Eclampsia N Suicidal Ideation N Osteoporosis N Gynecological History Statement/Question Response Abnormal Pap N Date of Last Mammogram 10/04/2018 On BCP's at Conception? N Post Menopausal Bleeding N STIs/STDs N Current Control Method None Age at Menarche 12 Age at First Child 20 Last Annual Exam/Provider 09-20-2018/JAN Last Lipids Family DOC Date of Last Colonoscopy Most Recent Bone Density 10/04/2018 Sexually Active? Y Menses Monthly N Last [facility] Ovarian U/S Screening NEVER Date of Last Pap Smear 09/20/2018 Sexual Problems? N LMP Unknown Hormone Replacement Therapy N Obstetrics History GPAL:G 3 P 3 0 0 3 Type Value Full Term 3 Living 3 Total 3 Immunizations Vaccine Type Date Status Note Provider Bharathi robledo and Address Organization Details Recorded Time influenza, unspecified formulation 4 completed Not Available [facility] 12/01/2023 10:29:57 pneumococcal polysaccharide PPV23 4 completed Not Available [facility] 12/01/2023 10:29:57 COVID-19 vaccine, vector-nr, rS-Ad26, PF, 0.5 mL 1 completed Mickie garcia, KIMBERLYN - [facility] 09/15/2022 09:46:23 MMR 8 completed Mickie garcia, KIMBERLYN - [facility] 09/15/2022 09:46:23 varicella 8 completed Mickie garcia, KIMBERLYN - [facility] 09/15/2022 09:46:23 Past Encounters Encounter ID Performer Location Encounter Start Date Encounter Closed Date Diagnosis/Indication Diagnosis SNOMED-CT Code Diagnosis ICD10 Code Diagnosis IMO Codes Diagnosis Note [id number] [facility] [address] [place] [address] 07/27/2008 00:00:00 [id number] [facility] [address] [place] [address] 09/10/2009 00:00:00 [id number] [facility] [address] [place] [address] 03/27/2010 00:00:00 [id number] [facility] [address] [place] [address] 03/27/2010 00:00:00 [id number] [facility] [address] [place] [address] 10/17/2010 00:00:00 [id number] [facility] [address] [place] [address] 04/24/2011 00:00:00 [id number] [facility] [address] [place] [address] 07/09/2011 00:00:00 [id number] [facility] [address] [place] [address] 10/09/2011 00:00:00 [id number] [facility] [address] [place] [address] 12/29/2013 00:00:00 [id number] [facility] [address] [place] [address] 07/06/2014 00:00:00 [id number] [facility] [address] [place] [address] 12/17/2011 00:00:00 [id number] [facility] [address] [place] [address] 2014 00:00:00 [id number] [facility] [address] [place] [address] 04/16/2012 00:00:00 [id number] [facility] [address] [place] [address] 11/27/2014 00:00:00 [id number] [facility] [address] [place] [address] 12/22/2012 00:00:00 [id number] [facility] [address] [place] [address] 12/19/2014 00:00:00 [id number] [facility] [address] [place] [address] 02/28/2015 00:00:00 [id number] [facility] [address] [place] [address] 12/16/2013 00:00:00 [id number] [facility] [address] [place] [address] 12/29/2013 00:00:00 [id number] [facility] [address] [place] [address] 03/12/2015 00:00:00 [id number] [facility] [address] [place] [address] 06/04/2015 00:00:00 [id number] [facility] [address] [place] [address] 07/17/2015 00:00:00 [id number] [facility] [address] [place] [address] 07/17/2015 00:00:00 [id number] [facility] [address] [place] [address] [address] 08/14/2015 00:00:00 [id number] [facility] [address] [place] [address] [address] 08/27/2015 00:00:00 [id number] [facility] [address] [place] [address] 11/20/2015 00:00:00 [id number] GAYATRI Santiago [employer] [address] [place] [address] KIMBERLYN Gibbons [address] 10/20/2016 09:46:10 10/20/2016 10:18:31 Surveillance of depot contraception done 3516349229 9104 Z30.42 Hypothyroidism 05195819 E03.9 [id number] GAYATRI Santiago [employer] [address] [place] [address] KIMBERLYN Gibbons [address] 01/12/2017 09:48:11 01/12/2017 10:15:47 Uses depot contraception 603770140 Z30.42 [id number] GAYATRI Santiago [employer] [address] [place] [address] KIMBERLYN Gibbons [address] 04/06/2017 09:08:32 04/06/2017 09:36:06 Surveillance of depot contraception done 6975691456 9104 Z30.42 [id number] GAYATRI Santiago [employer] [address] [place] [address] KIMBERLYN Gibbons [address] 06/29/2017 09:13:23 06/29/2017 09:47:11 Contraception care management 854296550 Z30.9 [id number] GAYATRI Santiago [employer] [address] [place] [address] KIMBERLYN Gibbons [address] 08/10/2017 09:23:46 08/10/2017 10:21:59 Body mass index 30+ - obesity 759569612 Z68.39 Routine gy necologic examination done 8126438570 9101 Z01.419 Examinatio n of blood pressure 963733045 Z01.30 BP goal < 140/90 Depression screening 171 187668 Z13.89 Diet education 33339531 Z71.3 7784-9567 calorie diet recommende d with emphasis on low saturated fat, low carbohydra te, and adequate protein intake. She declines dietary consult. Counseling 122928337 Z71 .9 Exercise counsellin g. Patient encouraged to exercise 30 minutes 5 days a week. Screening for malignant neoplasm of breast 787509669 Z12.31 Screening for malignant neoplasm of cervix 444047050 Z12.4 Z11.51 Z11.8 Amenorrhea 67585231 N91. 2 Rheumatoid arthritis 698 80727 M06.9 Hypothyroidism 65913136 E89.0 Cigarette smoker 9600909 7 F17.210 Tobacco use discourage d. Techniques for quitting smoking discussed including pharmaceut icals (Nicotine patches, gum, Zyban, and Chantix) and behavioral therapy (Ludwig Elizabeth). Immediate and care home cardiovasc ular and respirator y benefits of smoking cessation discussed. Lung cancer risk reduction also discussed. Therapeuti c drug monitoring assay 22665942 Z51.81 M06.9 [id number] GAYTARI Santiago [employer] [address] [facility] [place] [address] 09/20/2018 09:59:14 09/20/2018 11:15:30 Routine gynecologic examination done 1632703687 9101 Z01.419 Examinatio n of blood pressure 788431960 Z01.30 BP goal < 140/90 Depression screening 171 392539 Z13.89 Diet education 31266583 Z71.3 7099-5788 calorie diet recommende d with emphasis on low saturated fat, low carbohydra te, and adequate protein intake. She declines dietary consult. Counseling 125144059 Z71 .82 Exercise counsellin g. Patient encouraged to exercise 30 minutes 5 days a week. Vaccine de clined by patient 1200878172 02 Z28.21 Screening for malignant neoplasm of breast 907101608 Z12.31 Screening for malignant neoplasm of colon 474546462 Z12.11 Postmenopausal state 764 87539 Z78.0 Screening for malignant neoplasm of cervix 066222470 Z12.4 Z11.51 Z11.8 Rheumatoid arthritis 698 18705 M06.9 Body mass index 25-29 - overweight 905210550 Z68.27 [id number] Valerieeunice Valdes [address] [address] 09/12/2022 11:09:26 09/12/2022 12:03:38 Adult health examination 870449158 Z00.[id number] [address] 09/15/2022 09:27:03 09/15/2022 09:41:36 Adult health examination 710886703 Z00.00 [id number] C[place]outh Valdes[address] [address] 12/02/2022 14:31:36 12/02/2022 15:34:13 Pain of right ankle joint 2322729948 2285394 M25.571 xrays and steroids if no improvemen t call dr gamboa [id number] [facility] m[address] [address] 12/04/2022 10:27:06 12/04/2022 11:08:53 Goiter 0661702 E04.9 Pain of ri ght ankle joint 2533362907 7043621 M25.571 Needs to call for appointmen t asad [id number] [facility] [address] [address] 01/08/2023 09:31:40 01/08/2023 09:48:41 Conjunctivitis 1468631 H10.9 contact precaution sif worsen or no improvemen t return [id number] [facility] [address] [address] 10/09/2023 15:14:18 10/09/2023 16:00:23 Acute bronchitis 95411972 J20.9 [id number] [facility] Val[address] [address] 12/01/2023 10:13:27 12/01/2023 12:08:55 Acute maxillary sinusitis 12046965 J01.00 [id number] Edy Valdes [place] [address] 05/09/2024 14:21:06 05/09/2024 15:23:55 Acute serous otitis media of bilateral ears 6526460140 338387 H65.03 Streptococ aden sore throat 74929562 J02.0 contact precaution s discussedi f no improvemen t return [id number] Edy Valdes [place] [address] 07/10/2025 11:42:23 07/10/2025 12:09:58 Low blood pressure 08325469 I95.9 [id number] ekg done-sent to ed for evalreport [facility] [id number] Edy Valdes [place] [id number] 07/11/2025 08:01:21 07/11/2025 10:24:27 Bradycardia 35331221 R00.1 [id number] cardiology appoint at 145 today Headache 22934230 R51.9 [id number] will order outpt iv fluids order sent to [facility] out pt Health Concerns Section Related Observation LastModified by Organization Detai ls LastModified Time None Recorded Concern Status LastModified by Organization Details LastModified Time None Recorded Advance Directives Directive N: Payers Insurance Date Sequence Insurance Name Policy Number Policy Chen Covered Member ID Chen Member ID Guarantor Name 01/09/2017 1 [place] [id number] Monique Linder [id number] Monique Linder 07/10/2025 1 [facility] [id number] Monique Linder [id number] Monique Linder 12/04/2022 1 [place] [id number] Monique Linder [id number] Monique Linder 12/01/2023 1 [place] [id number] Monique Linder [id number] Monique Linder Notes Date Note Type Note Provider Name and Address Organization Details Recorded Time 10/09/2023 text/html 58 yr old female presents for cough, sore throat and congestion since Thursday. Edy Valdes, ACUTE CARE NURSE PRACTITIONER [address], [place], [address], [place] - [facility] 10/09/2023 15:59:19 12/01/2023 text/html 58 yr old female presents with cough and congestion for a few weeks, fever started yesterday. now having green thick drainage and sinus pressure Edy Valdes, ACUTE CARE NURSE PRACTITIONER [address], [place], [address], [place] - [facility] 12/01/2023 11:49:48 05/09/2024 text/html ROS as noted in the HPI 58 yr old female presents with cough, sinus drainage and sore throat. She reports having a fever at times. Edy Valdes, ACUTE CARE NURSE PRACTITIONER [address], [place], [address], [place] [facility] 05/09/2024 15:23:53 07/10/2025 text/html ROS as noted in the HPI 59 yr old female presents for low bp concerns. She noticed she was dizzy, fatigue, sleepy,tired and had headache two nights ago. Her bp has been as low as 80/59 at home. denies chest pain,pressure or tightness. states she is also having a burning pain in left lower ext. Edy Valdes, ACUTE CARE NURSE PRACTITIONER [address], [place], [address], [place] [facility] 07/10/2025 13:32:45 07/11/2025 text/html Emergency Depart ment Follow-Up RecordReported by PatientEmergency Room Follow-Up RecordFor discharge information, patient reportsname of hospital/urgent care patient was seen: ([facility]),patient presented to hospital/urgent care on or around: actual date 07/10/2025,patient presented to hospital for treatment of: (low bp),treatment received by hospital/urgent care: (ivf's, headache),patient's condition has: unchanged, andhospital records available at the time of this visit: yes. 59 yr old female presents for an ER follow up. She was worked up for low bp, tests were unremarkable. Patient continues to have a dull headache. pt states she feels better but still fatigue and dull headache. pt states she believes fluids helped. Edy Valdes, ACUTE CARE NURSE PRACTITIONER [address], [place], [address], [place] - [facility] 07/11/2025 09:43:11 OBGyn Episode Ob Episode Information Episode Created Date Number of Fetuses Patient Bloodtype Patient rh Status Prepregnancy Weight lbs Domestic Partner Domestic Partner Phone Father Name Director Of State Status 08/10/20 17 1 CLOSED Fetus Data First Name Last Name Admitted to NICU Weight (g) Sex Living Outcome Pediatric Complications Fetus ID Race Codes Race Delivery Type 2919.77 1704 M Full Term 6386 Vaginal Jeevan Calculation Initial Jeevan Date Initial Exam Date Initial Exam Provider Initial Ultrasound Date Last Menstrual Period Date Ultra Sound Weeks Gestation 0 Eighteen To Twenty Week Jeevan Update Ultra Sound Date Fundal Height At Umbil Quickening Date Ultra Sound Latest Weeks Gestation Final Jeevan Confirmed By Final Jeevan Confirmed Date Final Jeevan Date Ultra Sound Latest Days Gestation 0 0 Menstrual History Last Menstrual Date Menses Monthly On Bcp Conception Prior Menses Frequency Hcg Plus Date Menarche Onset Age Delivery Information Delivery Date Delivery Type Labor Anesthesia Weeks Gestation Incision Type Labor Labor Length Hrs Delivered By Post Complications Tubal Sterilization Discharge Date Comments [address]Showe armstrong , no issues, Marcelo Discharge Information Feeding Method Contraceptive Method Maternal HG B and HCT Levels Ob Episode Information Episode Created Date Number of Fetuses Patient Bloodtype Patient rh Status Prepregnancy Weight lbs Domestic Partner Domestic Partner Phone Father Name Director Of State Status 08/10/20 17 1 CLOSED Fetus Data First Name Last Name Admitted to NICU Weight (g) Sex Living Outcome Pediatric Complications Fetus ID Race Codes Race Delivery Type 3373.36 3704 F Full Term 6385 Vaginal Jeevan Calculation Initial Jeevan Date Initial Exam Date Initial Exam Provider Initial Ultrasound Date Last Menstrual Period Date Ultra Sound Weeks Gestation 0 Eighteen To Twenty Week Jeevan Update Ultra Sound Date Fundal Height At Umbil Quickening Date Ultra Sound Latest Weeks Gestation Final Jeevan Confirmed By Final Jeevan Confirmed Date Final Jeevan Date Ultra Sound Latest Days Gestation 0 0 Menstrual History Last Menstrual Date Menses Monthly On Bcp Conception Prior Menses Frequency Hcg Plus Date Menarche Onset Age Delivery Information Delivery Date Delivery Type Labor Anesthesia Weeks Gestation Incision Type Labor Labor Length Hrs Delivered By Post Complications Tubal Sterilization Discharge Date Comments [address]Wilso saab , no issues, Kelsey Discharge Information Feeding Method Contraceptive Method Maternal HG B and HCT Levels Ob Episode Information Episode Created Date Number of Fetuses Patient Bloodtype Patient rh Status Prepregnancy Weight lbs Domestic Partner Domestic Partner Phone Father Name Director Of State Status 08/10/20 17 1 CLOSED Fetus Data First Name Last Name Admitted to NICU Weight (g) Sex Living Outcome Pediatric Complications Fetus ID Race Codes Race Delivery Type 3345.24 1 F Full Term 6384 Vaginal Jeevan Calculation Initial Jeevan Date Initial Exam Date Initial Exam Provider Initial Ultrasound Date Last Menstrual Period Date Ultra Sound Weeks Gestation 0 Eighteen To Twenty Week Jeevan Update Ultra Sound Date Fundal Height At Umbil Quickening Date Ultra Sound Latest Weeks Gestation Final Jeevan Confirmed By Final Jeevan Confirmed Date Final Jeevan Date Ultra Sound Latest Days Gestation 0 0 Menstrual History Last Menstrual Date Menses Monthly On Bcp Conception Prior Menses Frequency Hcg Plus Date Menarche Onset Age Delivery Information Delivery Date Delivery Type Labor Anesthesia Weeks Gestation Incision Type Labor Labor Length Hrs Delivered By Post Complications Tubal Sterilization Discharge Date Comments 5 None 40 , no issues, Sonja Discharge Information Feeding Method Contraceptive Method Maternal HG B and HCT Levels
--- OUTSIDE RECORDS SUMMARY | 2025-08-25 07:15 | XMS_ITS | Continuity of Care Document ---
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 Plan of Treatment Reminders Order Date Submit Date Provider Last Modified By Organization Details Last Modified Time Details Appointments None recorded. Lab None recorded. Referral None recorded. Procedures None recorded. Surgeries None recorded. Imaging electrocard iogram 2024 025 [facility], [address] [place] [address], [id number], 13:32:26 Medication Orders None recorded. Patient TargetsNo targets recorded. Patient InstructionsNo instructions recorded. Reason for Referral None Reported. Results Created Date Observation Date Name Description Value Unit Range Abnormal Flag Note LastModifiedBy Organization Detail LastModifiedTime 07/10/2007/10/2025 elect mirta bowles am No observ ation record ed. [address], [address], 07/10/2025 13:14:22 07/10/2007/10/2025 XR, chest , 2 view No observ ation record ed. [email or web address] [address], [place], [address], 07/10/2025 14:18:00 07/10/20 25 07/10/2025 US, doppl er, venou s No observ ation record ed. [facility] [address], [address], 07/10/2025 16:39:13 07/10/20 25 07/10/2025 elect rocar diogr am No observ ation record ed. [facility] [address], [place], [address], 07/11/2025 08:23:11 07/21/20 25 07/10/2025 elect rocar diogr am No observ ation record ed. [email or web address] [address], [address], 07/26/2025 09:19:31 07/28/20 25 07/27/2025 NM, myoca rdial perfu antonina scan, w/ stres s No observ ation record ed. [place] [id number], [place], [address], 08/01/2025 15:50:49 07/28/20 25 07/27/2025 cardi ac stres s test No observ ation record ed. [place] [id number], [place], [address], 08/01/2025 14:40:55 07/29/20 25 07/27/2025 stres s echoc ardio gram with doppl er color flow (PROC ) No observ ation record ed. [place] [id number], [address], 08/01/2025 14:37:43 Result Notes None recorded. Problems Name Problem SNOMED Code Status Onset Date Resolution Date Notes Provider Name and Address Organization Details Recorded Time Goiter 8653235 Active 2015 [place] - [facility] 6 10:04:03 Hypothyroidism 85601473 Active 2015 Brittney Nobles, [employer] E[employer]IST [address], [place], [address], [place] - [facility] 6 10:31:42 Rheumatoid arthritis 83089006 Active 2015 Mary Lou garcia, [place] - [facility] 6 10:04:55 Osteopenia 171196544 Active 2017 Brittney Nobles [employer] [address], [place], [address], [place] - [facility] 8 20:53:47 Problem Notes None recorded. Procedures Surgical History Date Name Laterality Status Provider Name and Address Organization Details Recorded Time 07/11/20 25 Medication Reconcilliation completed Mickie Hutchinson [place] - [facility] 07/11/2025 08:14:45 10/04/20 18 Date of Last Mammogram completed Brittney Nobles APRN [address], [place], [address], [place] - [facility] 10/05/2018 09:25:32 10/04/20 18 Most Recent Bone Density completed Brittney Nobles APRN [address], [place], [address], [place] - [facility] 10/04/2018 20:53:11 09/20/20 18 Date of Last Pap Smear completed Brittney Nobles APRN [address], [place], [address], [place] - [facility] 09/22/2018 14:22:49 08/22/20 15 Thyroidectomy completed Brittney Nobles APRN [address], [place], [address], [place] - [facility] 10/20/2016 10:31:17 Tonsillectomy completed Mary Lou Munroe [place] - [facility] 10/20/2016 10:08:33 Imaging Results None [...] nued on: 03/27/20 10 10:15AM; User: [email or web address] Est. Kareni on: 09/30/20 09;Print ed: 09/10/20 09 Not [...] Disconti nued on: 07/28/20 16 9:51AM;U ser: [email or web address]; Est. Completi on: 10/13/20 15;Indic ation: Hyperthy roidism - ();Luz Mark fied: 08/14/20 15 11:56AM Not Available Not Available Not Available fluticaso ne propionat e 50 mcg/actua tion nasal spray,aric pension [place] 1 spray every day by intranas al [...] Disconti nued on: 04/24/20 11 5:03PM;U ser: grossert ;Est. Completi on: 11/06/20 10;Print ed: 10/17/20 10 Not Available Not Available Not Available methotrex ate 4 tabs on week one then increase 1 tab q weekly to a max of 8 tabs per week 10/20 completed methotre xate oral 2.5 mg;Recor ded Status: Recorded on: 11/27/20 14 9:10AM;U ser: marcial; Benigno on: - (-5) Not Available Not Available [...] per day with food 10/20 completed antionette m chloride 20 mEq oral tablet extended release; Recorded Status: Recorded on: 08/14/20 15 11:17AM; User: marcial Not Available Not Available Not Available [employer] 09/20 completed Not Available Not Available Not Available Vitals Date Recorded Body weight Body temperature Heart rate Oxygen saturation Oxygen saturation in Arterial blood by Pulse oximetry Respiratory rate Pain severity - 0-10 verbal numeric rating [Score] - Reported Systolic And Diastolic Provider Name and Address Organization Details Last Updated DateTime 5 37743.8 g 98 [degF] 74 /min 97 % 97 % 18 /min 0 86/60 mm[Hg] Mickie Hutchinson [place] - [facility] 5 11:55:10 Social History Question Answer Notes LastModified by Organizat ion Details LastModified Time Tobacco Smoking Status Current Some Day Smoker Tiffanie g[place], [place] - [facility] 08/10/2017 09:38:00 Do You Have An Advance Directive? No [email or web address] Information not available 10/20/2016 Are You Blind Or Do You Have Difficulty Seeing? No [email or web address] Information not available 10/20/2016 Is Blood Transfusion Acceptable In An Emergency? Yes [email or web address] Information not available 10/20/2016 What Is Your Level Of Caffeine Consumption? Occasional [email or web address] Information not available 10/20/2016 How Much Tobacco Do You Chew? None [email or web address] Information not available 10/20/2016 Are You Deaf Or Do You Have Serious Difficulty Hearing? No Information not available 10/20/2016 What Type Of Diet Are You Following? REGULAR [email or web address] Information not available 10/20/2016 Which Illicit Or Recreational Drugs Have You Used? None [email or web address] Information not available 01/12/2017 What Is The Highest Grade Or Level Of School You Have Completed Or The Highest Degree You Have Received? [id number] [email or web address] Information not available 09/20/2018 How Many Days Of Moderate To Strenuous Exercise, Like A Brisk Walk, Did You Do In The Last 7 Days? 0 [email or web address] Information not available 09/20/2018 On Those Days That You Engage In Moderate To Strenuous Exercise, How Many Minutes, On Average, Do You Exercise? 0 [email or web address] Information not available 09/20/2018 Have There Been Any Changes To Your Family Or Social Situation? No Information no t available 09/12/2022 How Hard Is It For You To Pay For The Very Basics Like Food, Housing, Medical Care, And Heating? [id number] [email or web address] Information not available 09/20/2018 What Is The Fluoride Status Of Your Home? Unknown Information not available 09/12/2022 Live Alone Or With Others? With Others [email or web address] Information not available 10/20/2016 Do You Have A Medical Power Of Office Machine Embossograph Operator? No Information not available 09/12/2022 What Was The Date Of Your Most Recent Tobacco Screening? 07/10/2025 Information not available 07/10/2025 How Many Children Do You Have? 3 [email or web address] Information not available 10/20/2016 Performs Monthly Self-breast Exam? Yes [email or web address] Information no t available 10/20/2016 Do You Use Protection During Sex? Always Information not available 10/20/2016 What Is Your Relationship Status? Information not available 10/20/2016 Seat Belts Used Routinely Yes [email or web address] Information not available 10/20/2016 Are You Sexually Active? Yes [email or web address] Information not available 10/20/2016 Do You Have Smoke And Carbon Monoxide Detectors In Your Home? Yes Information not available 09/12/2022 At What Age Did You Start Smoking Tobacco? 12 [email or web address] Information not available 10/20/2016 Are You Passively Exposed To Smoke? Yes Information no t available 09/12/2022 General Stress Level Low [email or web address] Information not available 10/20/2016 Do You Use Sunscreen Routinely? No [email or web address] Information not available 10/20/2016 Has Tobacco Cessation Counseling Been Provided? Yes [email or web address] Information not available 08/10/2017 On What Date Was Tobacco Cessation Counseling Provided? 07/10/2025 Information not available 07/10/2025 How Many Years Have You Smoked Tobacco? 39 [email or web address] Information not available 10/20/2016 Do You Have Difficulty Walking Or Climbing Stairs? No [email or web address] Information not available 10/20/2016 Sex: Female Functional Status Question Answer Note LastModified by Organizat ion Details LastModified Time What is your level of alcohol consumption? None [email or web address] Information not available 10/20/2016 Are you currently employed? Yes [email or web address] Information not available 10/20/2016 Do you have access to reliable transportation? No Information not available 09/12/2022 Urinary incontinence assessment performed? Yes [email or web address] Information not available 08/10/2017 Are you able to walk independently without assistance or assistive devices? YESWOREST [email or web address] Information not available 06/29/2017 Do you have difficulty doing errands alone? No [email or web address] Information not available 10/20/2016 Are you able to care for yourself independently? Yes Information not available 09/12/2022 What is your occupation? [employer] [email or web address] Information not available 08/10/2017 Do you have difficulty dressing, bathing, grooming, or toileting? No [email or web address] Information not available 10/20/2016 What is your exercise level? None Information not available 10/20/2016 Mental Status Question Answer Note LastModified by Organizat ion Details LastModified Time Do you feel stressed (tense, restless, nervous, or anxious, or unable to sleep at night)? BI1143-4 [email or web address] Information not available 09/20/2018 Do you have difficulty concentrating, remembering or making decisions? No [email or web address] Information no t available 10/20/2016 Family History Relationship Description Onset Age of this Age Resolved Age Notes LastModified by Organization Details LastModified Time Mother Chronic obstructive pulmonary disease [email or web address] Not available 2015 10:05:41 Father Malignant tumor of colon [email or web address] Not available 08/10 09:36:49 Maternal Grandmother Diabetes mellitus [email or web address] Not available 08/10 09:37:07 Paternal Grandmother Diabetes mellitus [email or web address] Not available 08/10 09:37:07 Medical History Condition Response Pancreatitis N Other N Atrial Fibrillation N congenital heart disease N Blood Diseases N Hyperthyroidism N Rheumatoid arthritis N Blood Transfusion N Erectile Dysfunction N amputation N Skin [...] colitis N Cerebrovascular Disease N Depression N Guillain-Una N Sleep Apnea N Aneurysm N Bronchitis [...] Immunizations Vaccine Type Date Status Note Provider Nam e and Address Organization Details Recorded Time influenza, unspecified formulation 4 completed Not Available [facility] 12/01/2023 10:29:57 pneumococcal polysaccharide PPV23 4 completed Not Available [facility] 12/01/2023 10:29:57 COVID-19 vaccine, vector-nr, rS-Ad26, PF, 0.5 mL 1 completed TI Yuen - [facility] 09/15/2022 09:46:23 MMR 8 completed TI Yu[place] - [facility] 09/15/2022 09:46:23 varicella 8 completed TI Yu[place] - [facility] 09/15/2022 09:46:23 Past Encounters Encounter ID Performer Location Encounter Start Date Encounter Closed Date Diagnosis/Indication Diagnosis SNOMED-CT Code Diagnosis ICD10 Code Diagnosis IMO Codes Diagnosis Note [id number] Edy Valdes APRN [address] [address] 07/10/2025 11:42:23 07/10/2025 12:09:58 Low blood pressure 16703715 I95.9 37293464 ekg done-sent to ed for [facility] Concerns Section Related Observation LastModified by Organization Detai ls LastModified Time None Recorded Concern Status LastModified by Organization Details LastModified Time None Recorded Payers Encounter Date Sequence Insurance Name Policy Number Policy Chen Covered Member ID Chen Member ID Guarantor Name 07/10/2025 1 [facility] [id number] Monique Linder [id number] Monique Linder Notes Date Note Type Note Provider Name and Address Organization Details Recorded Time 07/10/2025 text/html ROS as noted in the HPI 59 yr old female presents for low bp concerns. She noticed she was dizzy, fatigue, sleepy,tired and had headache two nights ago. Her bp has been as low as 80/59 at home. denies chest pain,pressure or tightness. states she is also having a burning pain in left lower ext. Edy Valdes, PRO[employer] E[employer]IST [address], [place], [address], [place] - [facility] 07/10/2025 13:32:45 OBGyn Episode No OBEpisode recorded.
--- OUTSIDE RECORDS SUMMARY | 2025-08-25 07:15 | XMS_ITS | Continuity of Care Document ---
Author Organization [place] [facility] Address [address] [place] [address] Care Team Providers Care Speeder Worker Name Role Phone [facility] RHEUM ATOLOGY AND MUSCULOSKELETAL DISEASES Composition Professor SHARON NARVAEZ Thumb Sewer Assessment Encounter Date Assessment Date Assessment LastModified [...] Appointments None recorded. Lab None recorded. Referral cardiologis t referral - today at 145 2024 025 TONE Sanchez MD, [address] [facility] [address], [place], [address], 15:23:51 Procedures None recorded. Surgeries None recorded. Imaging None recorded. Medication Orders None recorded. Patient TargetsNo targets recorded. Patient InstructionsNo instructions recorded. Reason for Referral [employer] Coach Referral for Br adycardia today at 145 Referring Physician: Edy Valdes, Family Medicine, Encounter Date: 07/11/2025 Results Created Date Observation Date Name Description Value Unit Range Abnormal Flag Note LastModifiedBy Organization Detail LastModifiedTime 07/10/20 25 07/10/2025 elect rocar diogr am No observ ation record ed. [address], [address], 07/10/2025 13:14:22 07/10/20 25 07/10/2025 XR, chest , 2 view No observ ation record ed. [facility] [address], [place], [place], [address], 07/10/2025 14:18:00 07/10/20 25 07/10/2025 US, doppl er, venou s No observ ation record ed. [facility] [address], [place], [place], [address], 07/10/2025 16:39:13 07/10/20 25 07/10/2025 elect rocar diogr am No observ ation record ed. [facility] [address], [place], [place], [address], 07/11/2025 08:23:11 07/21/2007/10/2025 elect rocar diogr am No observ ation record ed. [email or web address] [address], [address], 07/26/2025 09:19:31 07/28/2007/27/2025 NM, myoca rdial perfu antonina scan, w/ stres s No observ ation record ed. [facility] [address], [place], [place], [address], 08/01/2025 15:50:49 07/28/20 25 07/27/2025 cardi ac stres s test No observ ation record ed. [facility] [address], [place], [place], [address], 08/01/2025 14:40:55 07/29/20 25 07/27/2025 stres s echoc ardio gram with doppl er color flow (PROC ) No observ ation record ed. [email or web address] [facility] [address], [place], [address], 08/01/2025 14:37:43 Result Notes None recorded. Problems Name Problem SNOMED Code Status Onset Date Resolution Date Notes Provider Name and Address Organization Details Recorded Time Goiter 9188710 Active 2015 Mary Lou garcia, [place] - [facility] 6 10:04:03 Hypothyroidism 53281052 Active 2015 Brittney Milford, [employer] [address], [place], [address], [place] - [facility] 6 10:31:42 Rheumatoid arthritis 15529532 Active 2015 Mary Lou garcia [place] - [facility] 6 10:04:55 Osteopenia 144499087 Active 2017 Brittney Rinconmond, [employer] [address], [place], [address], [place] - [facility] 8 20:53:47 Problem Notes None recorded. Procedures Surgical History Date Name Laterality Status Provider Name and Address Organization Details Recorded Time 07/11/20 25 Medication Reconcilliation completed Mickie Hutchinson [place] - [facility] 07/11/2025 08:14:45 10/04/20 18 Date of Last Mammogram completed Brittney Nobles [employer] [address], [place], [address], [place] [facility] 10/05/2018 09:25:32 10/04/20 18 Most Recent Bone Density completed Brittneypriyanka Nobles [employer] [address], [place], [address], [place] [facility] 10/04/2018 20:53:11 09/20/20 18 Date of Last Pap Smear completed Brittney Nobles [employer] [address], [place], [address], [place] [facility] 09/22/2018 14:22:49 08/22/20 15 Thyroidectomy completed Brittney Nobles APRN [address], [place], [address], [place] [facility] 10/20/2016 10:31:17 Tonsillectomy completed [...] Disconti nued on: 03/27/20 10 10:15AM; User: [email or web address]; Est. Completi on: 09/30/20 09;Print ed: 09/10/20 09 Not [...] Disconti nued on: 03/27/20 10 10:15AM; User: grossert Not Available Not Available Not Available Keflex [...] on: 10/13/20 15;Indic ation: Hyperthy roidism - (2429 );Phar Zenaidaeri fied: 08/14/20 11:56AM Not Available Not Available Not Available fluticaso ne propionat e 50 mcg/actua tion nasal spray,aric pension [place] 1 spray every day by intranas al [...] Disconti nued on: 04/24/20 11 5:03PM;U ser: [email or web address] ;Est. Completi on: 11/06/20 10;Print ed: 10/17/20 10 Not Available Not Available Not Available methotrex ate 4 tabs on week one then increase 1 tab q weekly to a max of 8 tabs per week 10/20 completed methotre xate oral 2.5 mg;Recor ded Status: Recorded on: 11/27/20 14 9:10AM;U ser: [email or web address]; Indicati on: - (-5) Not Available Not [...] Not Available Vitals Date Recorded Body weight Heart rate Oxygen saturation Oxygen saturation in Arterial blood by Pulse oximetry Respiratory rate Pain severity - 0-10 verbal numeric rating [Score] - Reported Body temperature Systolic And Diastolic Provider Name and Address Organization Details Last Updated DateTime 5 92305.4 5 g 57 /min 98 % 98 % 18 /min 2 98.1 [degF] 110/68 mm[Hg] Mickie Hutchinson [place] - [facility] 5 08:21:01 Social History Question Answer Notes LastModified by Organizat ion Details LastModified Time Tobacco Smoking Status Current Some Day Smoker Tiffanie Iverson [place], [place] - [facility] 08/10/2017 09:38:00 Do You Have An Advance Directive? No Information not available 10/20/2016 Are You Blind Or Do You Have Difficulty Seeing? No Information not available 10/20/2016 Is Blood Transfusion Acceptable In An Emergency? Yes [email or web address] Information not available 10/20/2016 What Is Your Level Of Caffeine Consumption? Occasional Information not available 10/20/2016 How Much Tobacco Do You Chew? None [email or web address] Information not available 10/20/2016 Are You Deaf Or Do You Have Serious Difficulty Hearing? No [email or web address] Information not available 10/20/2016 What Type Of Diet Are You Following? REGULAR [email or web address] Information not available 10/20/2016 Which Illicit Or Recreational Drugs Have You Used? None [email or web address] Information not available 01/12/2017 What Is The Highest Grade Or Level Of School You Have Completed Or The Highest Degree You Have Received? BC63379-8 [email or web address] Information not available 09/20/2018 How Many Days Of Moderate To Strenuous Exercise, Like A Brisk Walk, Did You Do In The Last 7 Days? 0 [email or web address] Information not available 09/20/2018 On Those Days That You Engage In Moderate To Strenuous Exercise, How Many Minutes, On Average, Do You Exercise? 0 [email or web address] Information not available 09/20/2018 Have There Been Any Changes To Your Family Or Social Situation? No Information no t available 09/12/2022 How Hard Is It For You To Pay For The Very Basics Like Food, Housing, Medical Care, And Heating? OX63921-7 [email or web address] Information not available 09/20/2018 What Is The Fluoride Status Of Your Home? Unknown Information not available 09/12/2022 Live Alone Or With Others? With Others [email or web address] Information not available 10/20/2016 Do You Have A Medical Power Of Information Systems Audit Manager? No Information not available 09/12/2022 What Was The Date Of Your Most Recent Tobacco Screening? 07/10/2025 Information not available 07/10/2025 How Many Children Do You Have? 3 [email or web address] Information not available 10/20/2016 Performs Monthly Self-breast Exam? Yes [email or web address] Information no t available 10/20/2016 Do You Use Protection During Sex? Always [email or web address] Information not available 10/20/2016 What Is Your Relationship Status? [email or web address] Information not available 10/20/2016 Seat Belts Used Routinely Yes [email or web address] Information not available 10/20/2016 Are You Sexually Active? Yes Information not available 10/20/2016 Do You Have Smoke And Carbon Monoxide Detectors In Your Home? Yes Information not available 09/12/2022 At What Age Did You Start Smoking Tobacco? 12 [email or web address] Information not available 10/20/2016 Are You Passively Exposed To Smoke? Yes Information no t available 09/12/2022 General Stress Level Low Information not available 10/20/2016 Do You Use Sunscreen Routinely? No [email or web address] Information not available 10/20/2016 Has Tobacco Cessation Counseling Been Provided? Yes [email or web address] Information not available 08/10/2017 On What Date Was Tobacco Cessation Counseling Provided? 07/10/2025 Information not available 07/10/2025 How Many Years Have You Smoked Tobacco? 39 [email or web address] Information not available 10/20/2016 Do You Have Difficulty Walking Or Climbing Stairs? No [email or web address] Information not available 10/20/2016 Sex: Female Functional Status Question Answer Note LastModified by Organizat ion Details LastModified Time What is your level of alcohol consumption? None [email or web address] Information not available 10/20/2016 Are you currently employed? Yes [email or web address] Information not available 10/20/2016 Do you have access to reliable transportation? No Information not available 09/12/2022 Urinary incontinence assessment performed? Yes [email or web address] Information not available 08/10/2017 Are you able to walk independently without assistance or assistive devices? YESWOREST [email or web address] Information not available 06/29/2017 Do you have difficulty doing errands alone? No [email or web address] Information not available 10/20/2016 Are you able to care for yourself independently? 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 No [email or web address] Information not available 10/20/2016 What is your exercise level? None [email or web address] Information not available 10/20/2016 Mental Status Question Answer Note LastModified by Organizat ion Details LastModified Time Do you feel stressed (tense, restless, nervous, or anxious, or unable to sleep at night)? [id number] [email or web address] Information not available 09/20/2018 Do you have difficulty concentrating, remembering or making decisions? No [email or web address] Information no t available 10/20/2016 Family History Relationship Description Onset Age of this Age Resolved Age Notes LastModified by Organization Details LastModified Time Mother Chronic obstructive pulmonary disease [email or web address] Not available 2015 10:05:41 Father Malignant tumor of colon [email or web address] Not available 08/10 09:36:49 Maternal Grandmother Diabetes mellitus [email or web address] Not available 08/10 09:37:07 Paternal Grandmother Diabetes mellitus [email or web address] Not available 08/10 09:37:07 Medical History Condition [...] colitis N Cerebrovascular Disease N Depression N Guillain-[place] N Sleep Apnea N Aneurysm N Bronchitis [...] influenza, unspecified formulation 4 completed Not Available [facility] 12/01/2023 10:29:57 pneumococcal polysaccharide PPV23 4 completed Not Available [facility] 12/01/2023 10:29:57 COVID-19 vaccine, vector-nr, rS-Ad26, PF, 0.5 mL 1 completed [place] - [facility] 09/15/2022 09:46:23 MMR 8 completed Mickie garcia [place] - [facility] 09/15/2022 09:46:23 varicella 8 completed [place] - [facility] 09/15/2022 09:46:23 Past Encounters Encounter ID Performer Location Encounter Start Date Encounter Closed Date Diagnosis/Indication Diagnosis SNOMED-CT Code Diagnosis ICD10 Code Diagnosis IMO Codes Diagnosis Note [id number] Edy Valdes [address] [address] 07/10/2025 11:42:23 07/10/2025 12:09:58 Low blood pressure 64517092 I95.9 21866771 ekg done-sent to ed for evalreport called to [facility] er- [facility] [id number] Edy Valdes [address] [address] 07/11/2025 08:01:21 07/11/2025 10:24:27 Bradycardia 73271249 R00.1 [id number] cardiology appoint at 145 today Headache 35702745 R51.9 [id number] will order outpt iv fluids order sent to [facility] out pt Health Concerns Section Related Observation LastModified by Organization Detai ls LastModified Time None Recorded Concern Status LastModified by Organization Details LastModified Time None Recorded Payers Encounter Date Sequence Insurance Name Policy Number Policy Chen Covered Member ID Chen Member ID Guarantor Name 07/11/2025 1 [facility] [id number] Monique Linder [id number] Monique Linder Notes Date Note Type Note Provider Name and Address Organization Details Recorded Time 07/11/2025 text/html Emergency Depart ment Follow-Up RecordReported by PatientEmergency Room Follow-Up RecordFor discharge information, patient reportsname of hospital/urgent care patient was seen: ([facility]),patient presented to hospital/urgent care on or around: [...] states she believes fluids helped. Edy Valdes, [employer] [address], [place], [address], [place] - [facility] 07/11/2025 09:43:11 OBGyn Episode No OBEpisode recorded.
[2025-08-25 07:25] VITALS: BMI 25.4
[2025-08-25 07:31] VITALS: BP 138/71; PULSE 62; RESP 16; O2SAT 98
[2025-08-25 07:33] VITALS: BP 138/71; PULSE 62; RESP 17; TEMP 36.1; O2SAT 98
[2025-08-25 07:42] VITALS: BP 112/87; PULSE 60; RESP 16; O2SAT 98
[2025-08-25] MEDS: 0.9 % SODIUM CHLORIDE 50 ML VIAL IV (07:47)
[2025-08-25 07:48] VITALS: BP 102/55; PULSE 60; RESP 18; O2SAT 98
[2025-08-25] MEDS: IOPAMIDOL-370 (76%);100ML BOTTLE 85 ML IV (07:48)
[2025-08-25] MEDS: SODIUM CHLORIDE 0.9% 10ML SYR (RAD ONLY) 10 ML IV (07:48)
--- NOTE | 2025-08-25 08:30 | CT_ITS ---
APPROVED REPORT Manager Intranet: CLINICAL INDICATION Chest Pain TECHNIQUE Image Acquisition: A 128 slice MDCT scanner ([employer]) was used for data acquisition. A noncontrast coronary calcium scan was performed. A CT attenuation threshold of 130 Hounsfield units (HU) was used for the detection of calcium in contiguous voxels of 1 sq mm in area to be counted as individual lesions. Bolus tracking in the ascending aorta with a threshold of 180 HU was performed. Immediately afterwards, ECG synchronized cardiac CT was then performed from the cardiac base to apex using retrospective gating with ECG tube current modulation. A total of 85 mL of Isovue 370 mg/mL contrast medium was administered at 5 mL/sec followed by a saline flush using a biphasic injection protocol. A tube voltage of 120 KVp was used. The average heart rate at the time of acquisition was 55 bpm and regular. Image Reconstruction Transaxial images were reconstructed at 0.67 mm slide thickness. Data was reviewed interactively on an advanced workstation capable of 2 and 3-dimensional displays in all conventional reconstruction formats, including multiplanar reformations, maximum intensity projections, curved multiplanar reformations, and volume rendered reconstructions. When applicable, selected routine images describing the relevant coronary anatomy and pathology were saved and sent to PACS. Complications None Technical Quality Overall image quality was fair due to significant motion. Coronary artery opacification was fair. Total DLP (Dose-Length Product) is 1937.5 mGy-cm. The reported value represents the total of one or more individual components during the CT acquisition of this date and at this time, and as such, the same value may appear in more than one CT report depending on the interpreting/reporting physicians. COMPARISON None FINDINGS CT Coronary Calcium Scoring LMA (Left Main Artery) = 47 LAD (Left Anterior Descending) = 284 LCX (Left Coronary Circumflex) = 65 RCA (Right Coronary Artery) = 758 Total Calcium Score = 1153 using the AJ-130 method. The observed calcium score of 1153 is at 99th percentile for subjects of the same age, sex, and race/ethnicity. The interpretation of the calcium heart score is based on the following continuum*: 0 = no calcified plaque detected (risk of coronary artery disease is very low ??? less than 5%) 1-10 = calcium detected in extremely minimal levels (risk of coronary diseases is still low ??? less than 10%) 11-100 = mild levels of plaque detected with certainty (mild or minimal narrowing of heart arteries is likely) 101-400 = definite,at least moderate levels of plaque detected (relatively high risk of a heart attack within 3-5 years) >401-999 = extensive levels of plaque detected (high risk of heart attack, high levels of vascular disease are present, high likelihood of at least one significant coronary narrowing) *The calcium heart score quantifies the burden of coronary calcification/plaque in the coronary arteries. The calcium heart score is not able to evaluate the presence or burden of non-calcified (i.e. soft) plaque. There is also identifiable calcification in the aortic valve and the ascending and descending thoracic aorta. Coronary CT Angiography The coronary arterial system is right dominant. Quantitative Stenosis Grading: Left Main (LM): The left main originates normally from the left sinus of Valsalva. The LM bifurcates into the left anterior descending artery and left circumflex artery. There is mixed calcified/noncalcified plaque in the ostium and proximal LM segment with up to 25% luminal stenosis. Left Anterior Descending (LAD) and Diagonal Branches: The LAD gives off 3 diagonal branch(es). There is mixed calcified/noncalcified plaque in the proximal and mid LAD segments with up to 50 to 70% luminal stenosis. There is no evidence of LAD-myocardial bridge. Left Circumflex (LCX) and Obtuse Marginals (OM): The LCX gives off 1 Obtuse Marginal (OM) branch(es). There is mixed calcified/noncalcified plaque in the proximal LCx segment with up to 50 to 70% luminal stenosis. Right Coronary Artery (RCA): The RCA originates normally from the right sinus of Valsalva. The RCA gives off a posterior descending artery (PDA) and posterolateral (PL) branches. There is mixed calcified/noncalcified plaque along the course of the RCA, with up to 50 to 70% luminal stenosis. Non-Coronary Cardiac Findings: Analysis of the left ventricular (LV) structure and function was performed after 3-D reconstruction of the LV from axial images, with user-corrected automatic contouring for assessment of LV volumes and user-defined reconstruction from oblique planes for measurement of 3-D cardiac structure and function. -The left ventricle systolic function is normal. -There is no left atrial appendage filling defect. Two right pulmonary veins and two left pulmonary veins drain normally into the left atrium. -No pericardial thickening or calcification. -Central and branch pulmonary arteries in the [id number] are unremarkable. -Thoracic aorta within the visualized thoracic aortic-branches in the edhhw-uv-kaud is unremarkable. Extracardiac Structures No significant extra-cardiac findings. Note, however, that this study is focused on the cardiac findings. IMPRESSION -Fair image quality due to significant motion (specifically in the RCA territory). This may affect the diagnostic interpretation of the study findings. -Presence of extensive coronary calcification with an Agatston score = 1153 using the AJ-130 method. -The observed calcium score of 1153 is at 99th percentile for subjects of the same age, sex, and race/ethnicity. -At least moderate, multivessel atherosclerotic coronary disease, with possible presence of flow-limiting atherosclerosis of the coronary arteries. -CAD-RADS 3. Management recommendations per ACC/AHA guidelines*, as clinically appropriate. -Calcification is also present in the aortic valve, as well as the ascending and descending thoracic aorta. *Recommendations: CAD RADS 0: Reassurance. Consider non-atherosclerotic causes of chest pain. CAD RADS 1: Consider non-atherosclerotic causes of chest pain. Consider preventive therapy and risk factor modification. CAD RADS 2: Consider non-atherosclerotic causes of chest pain. Consider preventive therapy and risk factor modification, particularly for patients with nonobstructive plaque in multiple segments. CAD RADS 3: Consider further functional testing. Consider symptom-guided anti-ischemic and preventive pharmacotherapy as well as risk factor modification per published guideline statements. CAD RADS 4A: Consider further functional testing or invasive coronary angiography with revascularization per published guideline statements. Consider symptom-guided anti-ischemic and preventive pharmacotherapy as well as risk factor modification per published guideline statements. CAD RADS 4B: Invasive coronary angiography recommended with revascularization per published guideline statements. Consider symptom-guided anti-ischemic and preventive pharmacotherapy as well as risk factor modification per published guideline statements. CAD RADS 5: Consider invasive angiography and/or viability assessment with revascularization per published guideline statements. Consider symptom-guided anti-ischemic and preventive pharmacotherapy as well as risk factor modification per published guideline statements. CRITICAL RESULT None COMMUNICATION Per this written report The coronary and cardiac findings of this CCTA were reviewed, reported, and signed by Frantz Houston MD (Inspector Motor Veh[employer]) Conclusion Electronically signed by : Jaye Houston MD 08/28/2025 12:25:26
== END 2025-08-25 08:05 | disposition home or self-care (01) ==
PROVIDERS: PCP Nurse Practitioner Family; Visit Provider Nurse Practitioner
DX: I25.10 Atherosclerotic heart disease of native coronary artery without angina pectoris (principal); I70.0 Atherosclerosis of aorta; I35.8 Other nonrheumatic aortic valve disorders; R42 Dizziness and giddiness; R51.9 Headache, unspecified; R94.39 Abnormal result of other cardiovascular function study
CPT/HCPCS: 75574; Q9967

== ENCOUNTER 2025-08-29 07:48 | Outpatient (CLI) | payer OTHER, SELFPAY ==
--- OUTSIDE RECORDS SUMMARY | 2025-08-29 07:51 | XMS_ITS | Continuity of Care Document ---
Author Organization [facility] Address [address] [place] [address] Care Team Providers Care Analytical Strategist Name Role Phone [facility] RHEUM ATOLOGY AND MUSCULOSKELETAL DISEASES Bartender SHARON NARVAEZ Peanut Grader Assessment No assessment recorded. Plan of Treatment Reminders Order Date Submit Date Provider Last Modified By Organization Details Last Modified Time Details Appointments None recorded. Lab None recorded. Referral None recorded. Procedures None recorded. Surgeries None recorded. Imaging electrocard iogram 2024 025 [facility], [address] [place] [address], [id number], 13:32:26 Medication Orders None recorded. Patient TargetsNo targets recorded. Patient InstructionsNo instructions recorded. Reason for Referral None Reported. Results Created Date Observation Date Name Description Value Unit Range Abnormal Flag Note LastModifiedBy Organization Detail LastModifiedTime 07/10/2007/10/2025 elect mirta bowles am No observ ation record ed. [address], [address], 07/10/2025 13:14:22 07/10/2007/10/2025 XR, chest , 2 view No observ ation record ed. [facility] [address], [place], [address], 07/10/2025 14:18:00 07/10/20 25 07/10/2025 US, doppl er, venou s No observ ation record ed. [facility] [address], [place], [address], 07/10/2025 16:39:13 07/10/20 25 07/10/2025 elect rocar diogr am No observ ation record ed. [facility] [address], [place], [address], 07/11/2025 08:23:11 07/21/20 25 07/10/2025 elect rocar diogr am No observ ation record ed. [email or web address] [address], [address], 07/26/2025 09:19:31 07/28/20 25 07/27/2025 NM, myoca rdial perfu antonina scan, w/ stres s No observ ation record ed. [facility] [address], [place], [address], 08/01/2025 15:50:49 07/28/20 25 07/27/2025 cardi ac stres s test No observ ation record ed. [facility] [address], [place], [address], 08/01/2025 14:40:55 07/29/20 25 07/27/2025 stres s echoc ardio gram with doppl er color flow (PROC ) No observ ation record ed. [facility] [address], [place], [address], 08/01/2025 14:37:43 08/28/20 25 08/25/2025 CT, angio gram, chest , w/ contr ast No observ ation record ed. [facility] [address], [place], [address], 08/28/2025 13:12:17 Result Notes None recorded. Problems Name Problem SNOMED Code Status Onset Date Resolution Date Notes Provider Name and Address Organization Details Recorded Time Goiter 8524033 Active 2015 Mary Lou garcia [place] - [facility] 6 10:04:03 Hypothyroidism 00076753 Active 2015 Brittney Nobles CAR AUDIO INSTALLER [address], [place], [address], [place] - [facility] 6 10:31:42 Rheumatoid arthritis 76887469 Active 2015 TI [place] - [facility] 6 10:04:55 Osteopenia 042533647 Active 2017 Brittney Nobles APRN [address], [place], [address], [place] - [facility] 8 20:53:47 Problem Notes None recorded. Procedures Surgical History Date Name Laterality Status Provider Name and Address Organization Details Recorded Time 07/11/20 25 Medication Reconcilliation completed Mickie Hutchinson [place] - [facility] 07/11/2025 08:14:45 10/04/20 18 Date of Last Mammogram completed Brittney Nobles APRN [address], [place], [address], [place] - [facility] 10/05/2018 09:25:32 10/04/20 18 Most Recent Bone Density completed Brittney Nobles APRN [address], [place], [address], [place] - [facility] 10/04/2018 20:53:11 09/20/20 18 Date of Last Pap Smear completed Brittney Nobles APRN [address], [place], [address], [place] - [facility] 09/22/2018 14:22:49 08/22/20 15 Thyroidectomy completed Brittney Nobles CAR AUDIO INSTALLER [address], [place], [address], [place] [facility] 10/20/2016 10:31:17 Tonsillectomy completed [...] Disconti nued on: 11/27/20 14 9:10AM;U ser: [email or web address] ;Est. Completi on: 08/30/20 14;Indic ation: Diffuse [...] elverr; Est. Completi on: 10/13/20 15;Indic ation: Hyperthy roidism - (2429 );Phar Jas fied: 08/14/20 15 11:56AM Not Available Not Available Not Available fluticaso ne propionat e 50 mcg/actua tion nasal spray,aric pension [place] 1 spray every day by intranas al [...] Disconti nued on: 12/17/19 12 1:16PM;U ser: [email or web address] ;Est. Completi on: 10/19/20 11;Indic ation: Stye [...] Disconti nued on: 04/24/20 11 5:03PM;U ser: [email or web address] ;Est. Completi on: 11/06/20 10;Print ed: 10/17/20 [...] Address Organization Details Last Updated DateTime 5 55183.8 g 98 [degF] 74 /min 97 % 97 % 18 /min 0 86/60 mm[Hg] Mickie Jasper [place] - [facility] 5 11:55:10 Social History Question Answer Notes LastModified by Organizat ion Details LastModified Time Tobacco Smoking Status Current Some Day Smoker Tiffanie Zayar garcia, [place] - [facility] 08/10/2017 09:38:00 Do You Have An Advance Directive? No [email or web address] Information not available 10/20/2016 Are You Blind Or Do You Have Difficulty Seeing? No [email or web address] Information not available 10/20/2016 Is Blood Transfusion Acceptable In An Emergency? Yes Information not available 10/20/2016 What Is Your Level Of Caffeine Consumption? Occasional [email or web address] Information not available 10/20/2016 How Much Tobacco Do You Chew? None [email or web address] Information not available 10/20/2016 Are You Deaf Or Do You Have Serious Difficulty Hearing? No [email or web address] Information not available 10/20/2016 What Type Of Diet Are You Following? REGULAR [email or web address] Information not available 10/20/2016 Which Illicit Or Recreational Drugs Have You Used? None Information not available 01/12/2017 What Is The Highest Grade Or Level Of School You Have Completed Or The Highest Degree You Have Received? [id number] Information not available 09/20/2018 How Many Days Of Moderate To Strenuous Exercise, Like A Brisk Walk, Did You Do In The Last 7 Days? 0 Information not available 09/20/2018 On Those Days That You Engage In Moderate To Strenuous Exercise, How Many Minutes, On Average, Do You Exercise? 0 [email or web address] Information not available 09/20/2018 Have There Been Any Changes To Your Family Or Social Situation? No Information no t available 09/12/2022 How Hard Is It For You To Pay For The Very Basics Like Food, Housing, Medical Care, And Heating? BO86180-6 [email or web address] Information not available 09/20/2018 What Is The Fluoride Status Of Your Home? Unknown Information not available 09/12/2022 Live Alone Or With Others? With Others [email or web address] Information not available 10/20/2016 Do You Have A Medical Power Of Railway Signal Technician? No Information not available 09/12/2022 What Was The Date Of Your Most Recent Tobacco Screening? 07/10/2025 Information not available 07/10/2025 How Many Children Do You Have? 3 [email or web address] Information not available 10/20/2016 Performs Monthly Self-breast Exam? Yes [email or web address] Information no t available 10/20/2016 Do You Use Protection During Sex? Always [email or web address] Information not available 10/20/2016 What Is Your Relationship Status? Information not available 10/20/2016 Seat Belts Used Routinely Yes [email or web address] Information not available 10/20/2016 Are You Sexually Active? Yes [email or web address] Information not available 10/20/2016 Do You Have Smoke And Carbon Monoxide Detectors In Your Home? Yes Information not available 09/12/2022 At What Age Did You Start Smoking Tobacco? 12 [email or web address] Information not available 10/20/2016 Are You Passively Exposed To Smoke? Yes Information no t available 09/12/2022 General Stress Level Low [email or web address] Information not available 10/20/2016 Do You Use Sunscreen Routinely? No [email or web address] Information not available 10/20/2016 Has Tobacco Cessation Counseling Been Provided? Yes [email or web address] Information not available 08/10/2017 On What Date Was Tobacco Cessation Counseling Provided? 07/10/2025 Information not available 07/10/2025 How Many Years Have You Smoked Tobacco? 39 [email or web address] Information not available 10/20/2016 Do You Have Difficulty Walking Or Climbing Stairs? No [email or web address] Information not available 10/20/2016 Sex: Female Functional Status Question Answer Note LastModified by Organizat ion Details LastModified Time What is your level of alcohol consumption? None [email or web address] Information not available 10/20/2016 Are you currently employed? Yes [email or web address] Information not available 10/20/2016 Do you have access to reliable transportation? No Information not available 09/12/2022 Urinary incontinence assessment performed? Yes [email or web address] Information not available 08/10/2017 Are you able to walk independently without assistance or assistive devices? YESWOREST [email or web address] Information not available 06/29/2017 Do you have difficulty doing errands alone? No [email or web address] Information not available 10/20/2016 Are you able to care for yourself independently? Yes Information not available 09/12/2022 What is your occupation? [employer] Information not available 08/10/2017 Do you have difficulty dressing, bathing, grooming, or toileting? No [email or web address] Information not available 10/20/2016 What is your exercise level? None [email or web address] Information not available 10/20/2016 Mental Status Question Answer Note LastModified by Organizat ion Details LastModified Time Do you feel stressed (tense, restless, nervous, or anxious, or unable to sleep at night)? SE2570-8 [email or web address] Information not available 09/20/2018 Do you have difficulty concentrating, remembering or making decisions? No [email or web address] Information no t available 10/20/2016 Family History Relationship Description Onset Age of this Age Resolved Age Notes LastModified by Organization Details LastModified Time Mother Chronic obstructive pulmonary disease [email or web address] Not available 2015 10:05:41 Father Malignant tumor of colon [email or web address] Not available 08/10 09:36:49 Maternal Grandmother Diabetes mellitus [email or web address] Not available 08/10 09:37:07 Paternal Grandmother Diabetes mellitus Not available 08/10 09:37:07 Medical History Condition [...] N Arthritis Y Restless Leg Syndrome N Infertility N Polyps N Carpal Tunnel N Acid Reflux (GERD) N Cancer N Stroke N Varicosities N Tendonitis N Crohn's Disease N Hypercholesterolemia N Skin Cancer N Fibromyalgia N Headaches N Anal Fissure N Irritable Bowel Syndrome N Kidney Disease N Heart Problems N [...] Cancer N Hernia N Plantar Fasciitis N Lung Disease N Hypothyroidism Y Defects or Inherited Disease N Breast Problem N Ovarian Cyst N Anesthesia Complications N Testosterone Deficiency N Interstitial Cystitis N Congenital Anomalies N Hypoglycemia N Blood clot N Vitamin D Deficiency N Cellulitis N Endometriosis N Fracture N Bladder or Kidney Problems N Schizophrenia N Panic Disorder N Concussion N Spina Bifida N Osteoarthritis N Parkinson's Disease N Disc Protrusion N STI N Esophagitis N Angina N Thyroid Problems N GI Problems N ADD/ADHD N Anemia N Multiple Sclerosis N Abnormal PAP N Lumbago N Mental Illness N Psychiatric Illness N Ovarian Cancer N Diabetes N Degenerative Disc Disease N Seizures/Epilepsy N Syncope N Insomnia N Hyperlipidemia N Eczema N Dementia N Attention Deficient Disorder N Abuse/Domestic Violence N Ulcerative colitis N Cerebrovascular Disease N Depression N Guillain-[place]ollywood N Sleep Apnea N Aneurysm N Heart Disease N Bronchitis N Suicidal Ideation N Pre-Eclampsia N Hypertension N Osteoporosis N Gynecological History Statement/Question Response [...] influenza, unspecified formulation 4 completed Not Available [facility] 12/01/2023 10:29:57 pneumococcal polysaccharide PPV23 4 completed Not Available [facility] 12/01/2023 10:29:57 COVID-19 vaccine, vector-nr, rS-Ad26, PF, 0.5 mL 1 completed TI [place] - [facility] 09/15/2022 09:46:23 MMR 8 completed [place] - [facility] 09/15/2022 09:46:23 varicella 8 completed [place] - [facility] 09/15/2022 09:46:23 Past Encounters Encounter ID Performer Location Encounter Start Date Encounter Closed Date Diagnosis/Indication Diagnosis SNOMED-CT Code Diagnosis ICD10 Code Diagnosis IMO Codes Diagnosis Note [id number] Edy Valdes APRN [facility] [address] [place] [address] 07/10/2025 11:42:23 07/10/2025 12:09:58 Low blood pressure 29807290 I95.9 16594922 ekg done-sent to ed for evalreport called to [facility] er- juana Health Concerns Section Related Observation LastModified by Organization Detai ls LastModified Time None Recorded Concern Status LastModified by Organization Details LastModified Time None Recorded Payers Encounter Date Sequence Insurance Name Policy Number Policy Chen Covered Member ID Chen Member ID Guarantor Name 07/10/2025 1 [facility] [id number] Monique Linder [id number] Monique Linder Notes Date Note Type Note [...] burning pain in left lower ext. Edy Valdes APRN [address], [place], [address], [place] - [facility] 07/10/2025 13:32:45 OBGyn Episode No OBEpisode recorded.
--- OUTSIDE RECORDS SUMMARY | 2025-08-29 07:51 | XMS_ITS | Clinical Summary ---
Author Organization Healthcare Address [address] [place] [address] Care Team Providers Care Habilitation Specialist Name Role Phone Edy Valdes Chan MENDIETA Primary Care Provider +1- [phone] Allergies No known active allergies Medications Calcium Carb-Cholecalcifer ol 500-600 MG-UNIT tablet Take by mouth 1 (one) time each day. 04/20/20 17 Active levothyroxine (Synthroid, Levoxyl) 75 MCG tablet Take 1 tablet (75 mcg) by mouth 1 (one) time each day. 05/10/20 19 Active gabapentin (Neurontin) 300 MG capsuleIndications :Fibromyalgia Take 1 capsule (300 mg) by mouth in the morning and 1 capsule (300 mg) in the evening and 1 capsule (300 mg) before bedtime. 270 capsule 1 02/16/20 25 Active etanercept (Enbrel SureClick) 50 MG/ML injectionIndicatio ns:Seropositive rheumatoid arthritis of multiple sites (CMS/HCC) Inject 1 mL (50 mg) under the skin 1 (one) time per week. 4 mL 7 02/16/20 25 Active diclofenac (Voltaren) 75 MG EC tabletIndications: Other secondary osteoarthritis of multiple sites TAKE 1 TABLET BY MOUTH TWICE DAILY NEEDED FOR SEVERE PAIN DO NOT CRUSH, CHEW, OR SPLIT 180 tablet 08/08/20 25 Active diclofenac (Voltaren) 75 MG EC tabletIndications: Other secondary osteoarthritis of multiple sites Take 1 tablet (75 mg) by mouth 2 (two) times a day as needed (severe pain). Do not crush, chew, or split. 180 tablet 1 02/16/20 25 025 Discontinued Active Problems Problem Noted Date Diagnosed Date Osteoarthritis 11/02/2019 Osteopenia 10/04/2018 Elevated liver enzymes 04/20/2018 Osteoarthritis of shoulders, bilateral 7 Goiter 10/20/2016 Rheumatoid arthritis 10/20/2016 Knee pain 03/02/2015 Rotator cuff dysfunction 03/02/2015 Elevated glucose 12/22/2014 Lumbago 12/22/2014 Encounters Date Type Department Care Team Description 08/08/2025 Refill [facility] [address] [place] [address] Cherelle Samuel MD Other secondary osteoarthritis of multiple sites from Last 3 Months Immunizations Immunization Administration Dates Next Due Influenza, [...] Description 08/31/2025 10:30 AM EDT Office Visit [facility] [address] [place] [address] Mason Barraza W, HATCHERY LABORER [address] [place] [address] Health Maintenance Due Date Last Done Comments [facility]-HIV Screening 1965 [facility]-Infant/Child/Adol SDOH Screenings 1965 [facility]- SDOH Screenings 1981 [...] (2 of 2 - PCV) 11/27/2015 11/27/2014 [id number] Vaccine (2 - Edgardo risk series) 08/15/2021 [...] PM EDT Historical Provider LAB BLOOD ORDERABLES Final R esult SUNQUEST from Last 3 Months or Most Recently Relevant to Health Maintenance Insurance [facility] Care Teams Habilitation Specialist Relationship Specialty Start Date End Date Edy Valdes, GAYATRI [address] [place] [address] PCP - General 01/16/23
--- OUTSIDE RECORDS SUMMARY | 2025-08-29 07:51 | XMS_ITS | Encounter Summary ---
Author Organization Healthcare Address [address] [place] [address] Care Team Providers Care Pole Sander Operator Name Role Phone Omid Allen MD Primary Care Provider Edy Valdes APRN Primary Care Provider [phone]- [phone] Reason for Visit * Reason Comments Med Refill Encounter Details Date Type Department Care Team (Late st Contact Info) Description 05/29/2022 Refill [facility] [address], [address] [place] [address] Cherelle Samuel MD [address] [place] [address] Seropositive rheumatoid arthritis of multiple sites (CMS/[facility]) Social History Tobacco Use Types [...] Description 08/31/2025 10:30 AM EDT Office Visit [facility] [address] [place] [address] Mason Barraza, HYDRAULIC ENGINEER [address] [place] [address] documented as of this encounter Visit Diagnoses Diagnosis Seropositive rheumatoid arthritis of multiple sites (CMS/HCC) documented in this encounter Additional Health Concerns Assessment Noted Time A fall risk assessment has been complete d for the patient 12/31/2021 9:52 AM EST documented as of this encounter Care Teams Pole Sander Operator Relationship Specialty Start Date End Date Omid Allen MD [address] [place] [address] PCP - General 04/12/21 01/15/23 Edy Valdes APRN [address] [place] [address] PCP - General 01/16/23 documented as of this encounter
--- OUTSIDE RECORDS SUMMARY | 2025-08-29 07:52 | XMS_ITS | Encounter Summary ---
Author Organization Healthcare Address [address] [place] [address] Care Team Providers Care Veneer Production Machine Operator Name Role Phone Edy Valdes Chan MENDIETA Primary Care Provider +1- [phone] Reason for Visit * Reason Comments Med Refill Encounter Details Date Type Department Care Team (Late st Contact Info) Description 08/08/2025 Refill [facility] [address] [place] [address] Cherelle Samuel MD [address] [place] [address] Other secondary osteoarthritis of multiple sites Social History Tobacco Use Types Packs/Day Years Used Date Smoking Tobacco: Former Smokeless Tobacco: Never Comments:Current vape user Alcohol Use Standard Drinks/Week [...] on file documented as of this encounter Miscellaneous Notes * Progress Notes - Heidi Fragoso, PharmD - 08/08/2025 7:40 AM EDT 1 medication(s) has been approved per protocol. documented in this encounter Plan of Treatment Upcoming Encounters Date Type Department Care Team (Late st Contact Info) Description 08/31/2025 10:30 AM EDT Office Visit [facility] [address] [place] [address] Mason Barraza, GAYATRI [address] [place] [address] documented as of this encounter Visit Diagnoses Diagnosis Other secondary osteoarthritis of multiple sites documented in this encounter Additional Health Concerns Assessment Noted Time A fall risk assessment has been complete d for the patient 02/15/2025 12:28 PM EDT A Body Mass Index follow-up plan has been documented for the patient 02/15/2025 12:52 PM EDT documented as of this encounter Care Teams Veneer Production Machine Operator Relationship Specialty Start Date End Date Edy Valdes APRN [address] [place] [address] PCP - General 01/16/23 documented as of this encounter
--- OUTSIDE RECORDS SUMMARY | 2025-08-29 07:52 | XMS_ITS | Continuity of Care Document ---
Author Organization [facility] Address [address] [place] [address] Care Team Providers [facility] Products Assembler Name Role Phone [facility] RHEUM ATOLOGY AND MUSCULOSKELETAL DISEASES Specimen Accessioner SHARON NARVAEZ Regional Director Of Admissions Assessment Encounter Date Assessment Date Assessment LastModified [...] 145 2024 025 TONE Sanchez MD, [address], [place], [address], 15:23:51 Procedures None recorded. Surgeries None recorded. Imaging None recorded. Medication Orders None recorded. Patient TargetsNo targets recorded. Patient InstructionsNo instructions recorded. Reason for Referral Hospice Aide Referral for Br adycardia today at 145 Referring Physician: Edy Valdes, Family Medicine, Encounter Date: 07/11/2025 Results Created Date Observation Date Name Description Value Unit Range Abnormal Flag Note LastModifiedBy Organization Detail LastModifiedTime 07/10/20 25 07/10/2025 elect rocar diogr am No observ ation record ed. [address], [address], 07/10/2025 13:14:22 07/10/20 25 07/10/2025 XR, chest , 2 view No observ ation record ed. [facility] [address], [place], [place], [address], 07/10/2025 14:18:00 07/10/20 25 07/10/2025 US, doppl er, venou s No observ ation record ed. [facility] [address], [place], [place], [address], 07/10/2025 16:39:13 07/10/20 25 07/10/2025 elect rocar diogr am No observ ation record ed. [facility] [address], [place], [place], [address], 07/11/2025 08:23:11 07/21/2007/10/2025 elect rocar diogr am No observ ation record ed. [email or web address], [address], 07/26/2025 09:19:31 07/28/2007/27/2025 NM, myoca rdial perfu antonina scan, w/ stres s No observ ation record ed. [facility] [address], [place], [place], [address], 08/01/2025 15:50:49 07/28/20 25 07/27/2025 cardi ac stres s test No observ ation record ed. [facility] [address], [place], [place], [address], 08/01/2025 14:40:55 07/29/20 25 07/27/2025 stres s echoc ardio gram with doppl er color flow (PROC ) No observ ation record ed. [facility] [address], [place], [address], 08/01/2025 14:37:43 08/28/20 25 08/25/2025 CT, angio gram, chest , w/ contr ast No observ ation record ed. [facility] [address], [place], [place], [address], 08/28/2025 13:12:17 Result Notes None recorded. Problems Name Problem SNOMED Code Status Onset Date Resolution Date Notes Provider Name and Address Organization Details Recorded Time Goiter 6910954 Active 2015 Mary Lou garcia [place] - [facility] 6 10:04:03 Hypothyroidism 11695926 Active 2015 Brittney Nobles, BEE [employer]ER [address], [place], [address], [place] - [facility] 6 10:31:42 Rheumatoid arthritis 66544292 Active 2015 Mary Lou garcia [place] - [facility] 6 10:04:55 Osteopenia 122146066 Active 2017 Brittney Nobles, [employer]EE [employer]ER [address], [place], [address], [place] - [facility] 8 20:53:47 Problem Notes None recorded. Procedures Surgical History Date Name Laterality Status Provider Name and Address Organization Details Recorded Time 07/11/20 25 Medication Reconcilliation completed Mickie Hutchinson [place] - [facility] 07/11/2025 08:14:45 10/04/20 18 Date of Last Mammogram completed Brittney Nobles [employer] [address], [place], [address], [place] - [facility] 10/05/2018 09:25:32 10/04/20 18 Most Recent Bone Density completed Brittney Nobles [employer] [address], [place], [address], [place] - [facility] 10/04/2018 20:53:11 09/20/20 18 Date of Last Pap Smear completed Brittney Nobles, [employer] [address], [place], [address], [place] - [facility] 09/22/2018 14:22:49 08/22/20 15 Thyroidectomy completed Brittney Nobles, [employer]EE [employer] [address], [place], [address], [place] - [facility] 10/20/2016 10:31:17 Tonsillectomy completed Mary Lou Ludwig [place] - [facility] 10/20/2016 10:08:33 Imaging Results [...] nued on: 03/27/20 10 10:15AM; User: [email or web address] EstAlonzo Carreno on: 09/30/20 09;Print ed: 09/10/20 09 [...] Disconti nued on: 11/27/20 14 9:10AM;U ser: grossert ;Est. Completi on: 08/30/20 14;Indic ation: Diffuse [...] Disconti nued on: 07/28/20 16 9:51AM;U ser: [email or web address]; Est. Completi on: 10/13/20 15;Indic ation: Hyperthy roidism - (03.2429 00);Phar Jas fied: 08/14/20 15 11:56AM Not Available Not Available Not Available fluticaso ne propionat e 50 mcg/actua tion nasal spray,aric pension [place] 1 spray every day by intranas al [...] nued on: 04/24/20 11 5:03PM;U ser: grossert ;EstAlonzo Completi on: 11/06/20 10;Print ed: 10/17/20 10 Not Available Not Available Not Available methotrex ate 4 tabs on week one then increase 1 tab q weekly to a max of 8 tabs per week 10/20 completed methotre xate oral 2.5 mg;Recor ded Status: Recorded on: 11/27/20 14 9:10AM;U ser: [email or web address]; Indicati on: - (-5) Not Available Not [...] times per day with food 10/20 completed potassiu m chloride 20 mEq oral tablet extended [...] Address Organization Details Last Updated DateTime 5 [address].4 5 g 57 /min 98 % 98 % 18 /min 2 98.1 [degF] 110/68 mm[Hg] Mickie Hutchinson [place] - [facility] 5 08:21:01 Social History Question Answer Notes LastModified by Organizat ion Details LastModified Time Tobacco Smoking Status Current Some Day Smoker Tiffanie garcia [place] - [facility] 08/10/2017 09:38:00 Do You Have An Advance Directive? No [email or web address] Information not available 10/20/2016 Are You Blind Or Do You Have Difficulty Seeing? No [email or web address] Information not available 10/20/2016 Is Blood Transfusion Acceptable In An Emergency? Yes [email or web address] Information not available 10/20/2016 What Is Your Level Of Caffeine Consumption? Occasional [email or web address] Information not available 10/20/2016 How Much Tobacco Do You Chew? None [email or web address] Information not available 10/20/2016 Are You Deaf Or Do You Have Serious Difficulty Hearing? No Information not available 10/20/2016 What Type Of Diet Are You Following? REGULAR [email or web address] Information not available 10/20/2016 Which Illicit Or Recreational Drugs Have You Used? None [email or web address] Information not available 01/12/2017 What Is The Highest Grade Or Level Of School You Have Completed Or The Highest Degree You Have Received? [id number] [email or web address] Information not available 09/20/2018 How Many Days Of Moderate To Strenuous Exercise, Like A Brisk Walk, Did You Do In The Last 7 Days? 0 [email or web address] Information not available 09/20/2018 On Those Days That You Engage In Moderate To Strenuous Exercise, How Many Minutes, On Average, Do You Exercise? 0 [email or web address] Information not available 09/20/2018 Have There Been Any Changes To Your Family Or Social Situation? No Information no t available 09/12/2022 How Hard Is It For You To Pay For The Very Basics Like Food, Housing, Medical Care, And Heating? ZQ83097-7 [email or web address] Information not available 09/20/2018 What Is The Fluoride Status Of Your Home? Unknown Information not available 09/12/2022 Live Alone Or With Others? With Others [email or web address] Information not available 10/20/2016 Do You Have A Medical Power Of Cocktail Lounge Manager? No Information not available 09/12/2022 What Was The Date Of Your Most Recent Tobacco Screening? 07/10/2025 Information not available 07/10/2025 How Many Children Do You Have? 3 [email or web address] Information not available 10/20/2016 Performs Monthly Self-breast Exam? Yes [email or web address] Information no t available 10/20/2016 Do You Use Protection During Sex? Always Information not available 10/20/2016 What Is Your Relationship Status? [email or web address] Information not available 10/20/2016 Seat Belts Used Routinely Yes [email or web address] Information not available 10/20/2016 Are You Sexually Active? Yes [email or web address] Information not available 10/20/2016 Do You Have Smoke And Carbon Monoxide Detectors In Your Home? Yes Information not available 09/12/2022 At What Age Did You Start Smoking Tobacco? 12 [email or web address] Information not available 10/20/2016 Are You Passively Exposed To Smoke? Yes Information no t available 09/12/2022 General Stress Level Low [email or web address] Information not available 10/20/2016 Do You Use Sunscreen Routinely? No [email or web address] Information not available 10/20/2016 Has Tobacco Cessation Counseling Been Provided? Yes [email or web address] Information not available 08/10/2017 On What Date Was Tobacco Cessation Counseling Provided? 07/10/2025 Information not available 07/10/2025 How Many Years Have You Smoked Tobacco? 39 [email or web address] Information not available 10/20/2016 Do You Have Difficulty Walking Or Climbing Stairs? No [email or web address] Information not available 10/20/2016 Sex: Female Functional Status Question Answer Note LastModified by Organizat ion Details LastModified Time What is your level of alcohol consumption? None [email or web address] Information not available 10/20/2016 Are you currently employed? Yes [email or web address] Information not available 10/20/2016 Do you have access to reliable transportation? No Information not available 09/12/2022 Urinary incontinence assessment performed? Yes [email or web address] Information not available 08/10/2017 Are you able to walk independently without assistance or assistive devices? YESWOREST [email or web address] Information not available 06/29/2017 Do you have difficulty doing errands alone? No [email or web address] Information not available 10/20/2016 Are you able to care for yourself independently? 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 No [email or web address] Information not available 10/20/2016 What is your exercise level? None [email or web address] Information not available 10/20/2016 Mental Status Question Answer Note LastModified by Organizat ion Details LastModified Time Do you feel stressed (tense, restless, nervous, or anxious, or unable to sleep at night)? [id number] [email or web address] Information not available 09/20/2018 Do you have difficulty concentrating, remembering or making decisions? No [email or web address] Information no t available 10/20/2016 Family History Relationship Description Onset Age of this Age Resolved Age Notes LastModified by Organization Details LastModified Time Mother Chronic obstructive pulmonary disease Not available 2015 10:05:41 Father Malignant tumor of colon [email or web address] Not available 08/10 09:36:49 Maternal Grandmother Diabetes mellitus [email or web address] Not available 08/10 09:37:07 Paternal Grandmother Diabetes [...] colitis N Cerebrovascular Disease N Depression N Guillain[place] N Sleep Apnea N Aneurysm N Bronchitis [...] formulation 4 completed Not Available [facility] 12/01/2023 10:29:57 pneumococcal polysaccharide PPV23 4 completed Not Available [facility] 12/01/2023 10:29:57 COVID-19 vaccine, vector-nr, rS-Ad26, PF, 0.5 mL 1 completed Mickie Jasper null, [place] - [facility] 09/15/2022 09:46:23 MMR 8 completed Mickie Jasper null, [place] - [facility] 09/15/2022 09:46:23 varicella 8 completed Mickie Jasper null, [place] - [facility] 09/15/2022 09:46:23 Past Encounters Encounter ID Performer Location Encounter Start Date Encounter Closed Date Diagnosis/Indication Diagnosis SNOMED-CT Code Diagnosis ICD10 Code Diagnosis IMO Codes Diagnosis Note [id number] Edy Valdes [address] [address] 07/10/2025 11:42:23 07/10/2025 12:09:58 Low blood pressure 78654909 I95.9 20400806 ekg done-[facility] ed [facility] juana [id number] Edy Valdes [employer] [address] [address] 07/11/2025 08:01:21 07/11/2025 10:24:27 Bradycardia 08046652 R00.1 55174 cardiology appoint at 145 today Headache 72615570 R51.9 [id number] will order outpt iv fluids order sent to [facility] out pt Health Concerns Section Related Observation LastModified by Organization Detai ls LastModified Time None Recorded Concern Status LastModified by Organization Details LastModified Time None Recorded Payers Encounter Date Sequence Insurance Name Policy Number Policy Chen Covered Member ID Chen Member ID Guarantor Name 07/11/2025 1 [facility] [id number] Monique Linder [id number] Monique Linder Notes Date Note Type Note Provider Name and Address Organization Details Recorded Time 07/11/2025 text/html Emergency Depart ment Follow-Up RecordReported by PatientEmergency Room Follow-Up RecordFor discharge information, patient reportsname of hospital/urgent care patient was seen: ([facility]),patient presented to hospital/urgent care on or [...] states she believes fluids helped. Edy Valdes, [employer] [address], [place], [address], [place] - [facility] 07/11/2025 09:43:11 OBGyn Episode No OBEpisode recorded.
--- OUTSIDE RECORDS SUMMARY | 2025-08-29 07:52 | XMS_ITS | Data Portability ---
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 Assessment Encounter Date Assessment Date Assessment LastModified [...] rapid strep group A, throat 2023 024 [facility], [address] [place] [address], [id number], 4 15:23:31 rapid SARS CoV + SARS CoV 2 Ag, QL IA, respiratory specimen 2023 024 [facility], [address] [place] [address], [address], 4 11:48:23 rapid flu (A+B) 2023 024 [facility], [address] [place] [address], [address], 4 11:48:24 rapid SARS CoV + SARS CoV 2 Ag, QL IA, respiratory specimen 2022 023 [facility], [address] [place] [address], [address], 3 15:58:24 rapid flu (A+B) 2022 023 [facility], [address] [place] [address], [address], 3 15:58:26 rapid strep group A, throat 2022 023 [facility], [address] [place] [address], [address], 3 15:58:28 Referral cardiologis t referral - today at 145 2024 025 TONE Sanchez MD, [address] [place] [address], [address], 5 15:23:51 Procedures None recorded. Surgeries None recorded. Imaging electrocard iogram 2024 025 [facility], [address] [place] [address], [address], 5 13:32:26 Medication Orders amoxicillin 500 mg tablet 2023 024 [facility], [address], [address], 5 11:46:15 prednisone 20 mg tablet 2023 024 [facility], [address], [address], 5 11:46:38 fluticasone propionate 50 mcg/actuati on nasal spray,suspe nsion 2023 024 [facility], [address], [address], 5 11:51:56 Zithromax Z-Suresh 250 mg tablet 2023 024 [facility], [address], [address], 4 14:24:57 Zithromax Z-Suresh 250 mg tablet 2022 023 [facility], [address], [address], 4 14:24:57 prednisone 20 mg tablet 2022 024 [facility], [address], [address], 5 11:46:38 Patient TargetsNo targets recorded. Patient InstructionsNo instructions recorded. 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 Referral for Br adycardia today at 145 Referring Physician: Edy Valdes, Family Medicine, Encounter Date: 07/11/2025 Results Created Date Observation Date Name Description Value Unit Range Abnormal Flag Note LastModifiedBy Organization Detail LastModifiedTime 10/09/2010/09/2023 rapid SARS CoV + SARS CoV 2 Ag, QL IA, respi rator y speci men SARS CoV antigen Negati ve Not Available [address], [address], 10/09/2023 15:38:57 10/09/20 23 10/09/2023 rapid flu (A+B) Flu negati ve Not Available [address], [address], 10/09/2023 15:39:03 10/09/20 23 10/09/2023 rapid flu (A+B) Type Both A & B Not Available [address], [address], 10/09/2023 15:39:03 10/09/20 23 10/09/2023 rapid strep group A, throa t Strep negati ve Not Available [address], [address], 10/09/2023 15:39:10 10/09/20 23 10/09/2023 rapid strep group A, throa t Culture No Not Available [address], [address], 10/09/2023 15:39:10 12/01/19 24 12/01/2023 rapid flu (A+B) Flu negati ve Not Available [address], [address], 12/01/2023 10:38:58 12/01/19 24 12/01/2023 rapid flu (A+B) Type Both A & B Not Available [address], [address], 12/01/2023 10:38:58 12/01/19 24 12/01/2023 rapid SARS CoV + SARS CoV 2 Ag, QL IA, respi rator y speci men SARS CoV antigen Negati ve Not Available [address], [address], 12/01/2023 10:38:52 05/09/20 24 05/09/2024 rapid strep group A, throa t Strep positi ve Not Available [address] [place], [address], 05/09/2024 15:20:02 05/09/20 24 05/09/2024 rapid strep group A, throa t Culture No Not Available [address], [place], [address], 05/09/2024 15:20:02 07/10/20 25 07/10/2025 elect rocar diogr am No observ ation record ed. [address], [address], 07/10/2025 13:14:22 07/10/20 25 07/10/2025 XR, chest , 2 view No observ ation record ed. [address], [place], [address], 07/10/2025 14:18:00 07/10/20 25 07/10/2025 US, doppl er, venou s No observ ation record ed. [place] [address], [place], [address], 07/10/2025 16:39:13 07/10/20 25 07/10/2025 elect rocar diogr am No observ ation record ed. [place] [address], [place], [address], 07/11/2025 08:23:11 07/21/20 25 07/10/2025 elect rocar diogr am No observ ation record ed. [email or web address] [address], [address], 07/26/2025 09:19:31 07/28/20 25 07/27/2025 NM, myoca rdial perfu antonina scan, w/ stres s No observ [facility] [address], [place], [address], 08/01/2025 15:50:49 07/28/20 25 07/27/2025 cardi ac stres s test No observ ation record ed. [facility] [address], [place], [address], 08/01/2025 14:40:55 07/29/20 25 07/27/2025 stres s echoc ardio gram with doppl er color flow (PROC ) No observ ation record ed. [facility] [address], [place], [address], 08/01/2025 14:37:43 08/28/20 25 08/25/2025 CT, angio gram, chest , w/ contr ast No observ ation record ed. [facility] [address], [place], [address], 08/28/2025 13:12:17 Result Notes None recorded. Problems Name Problem SNOMED Code Status Onset Date Resolution Date Notes Provider Name and Address Organization Details Recorded Time Goiter 7237073 Active 2015 Mary Lou garcia [place] - [facility] 6 10:04:03 Hypothyroidism 24536553 Active 2015 Brittney Nobles, AGRICULTURAL PLOW OPERATOR [address], [place], [address], [facility] - [facility] 6 10:31:42 Rheumatoid arthritis 79788672 Active 2015 Mary Lou garcia ID - [facility] 6 10:04:55 Osteopenia 306654097 Active 2017 Brittney Nobles, AGRICULTURAL PLOW OPERATOR [address], [place], [address], [facility] - [facility] 8 20:53:47 Problem Notes None recorded. Procedures Surgical History Date Name Laterality Status Provider Name and Address Organization Details Recorded Time 07/11/20 25 Medication Reconcilliation completed Mickie Hutchinson ID - [facility] 07/11/2025 08:14:45 10/04/20 18 Date of Last Mammogram completed Brittney Nobles APRN [address], [place], [address], [place] - [facility] 10/05/2018 09:25:32 10/04/20 18 Most Recent Bone Density completed Brittney Nobles APRN [address], [place], [address], [place] - [facility] 10/04/2018 20:53:11 09/20/20 18 Date of Last Pap Smear completed Brittney Nobles APRN [address], [place], [address], [place] - [facility] 09/22/2018 14:22:49 08/22/20 15 Thyroidectomy completed Brittney Nobles APRN [address], [place], [address], [place] - [facility] 10/20/2016 10:31:17 Tonsillectomy completed Mary Lou Munroe ID - [facility] 10/20/2016 10:08:33 Imaging Results None [...] on: 10/13/20 15;Indic ation: Hyperthy roidism - (242);Phar Zenaidaeri fied: 08/14/20 15 11:56AM Not Available Not Available Not Available fluticaso ne propionat e 50 mcg/actua tion nasal spray,aric pension [place] 1 spray every day by intranas al [...] grossert ;Est. Completi on: 10/19/20 11;Indic ation: Shira - (373.11) ;Printed : 10/09/20 11 Not [...] times per day with food 10/20 completed neileloy m chloride 20 mEq oral tablet extended release; Recorded Status: Recorded on: 08/14/20 15 11:17AM; User: [email or web address] Not Available Not Available Not Available [employer] [...] Updated DateTime 4 165.1 cm 27.6 kg/m2 54839.3 3 g 99.2 [degF] 110 /min 96 % 96 % 18 /min 5 124/78 mm[Hg] Mickie Htuchinson [facility] - [facility] 4 10:34:53 Date Recorded Body height Body mass index (BMI) Body weight Body temperature Heart rate Oxygen saturation Oxygen saturation in Arterial blood by Pulse oximetry Respiratory rate Pain severity - 0-10 verbal numeric rating [Score] - Reported Systolic And Diastolic Provider Name and Address Organization Details Last Updated DateTime 4 165.1 cm 26.3 kg/m2 03844.5 9 g 98.1 [degF] 87 /min 97 % 97 % 18 /min 0 120/78 mm[Hg] Mickie Hutchinson [facility] - [facility] 4 14:37:49 Date Recorded Body weight Body temperature Heart rate Oxygen saturation Oxygen saturation in Arterial blood by Pulse oximetry Respiratory rate Pain severity - 0-10 verbal numeric rating [Score] - Reported Systolic And Diastolic Provider Name and Address Organization Details Last Updated DateTime 5 49197.8 g 98 [degF] 74 /min 97 % 97 % 18 /min 0 86/60 mm[Hg] Mickie Hutchinson [facility] - [facility] 5 11:55:10 Date Recorded Body weight Heart rate Oxygen saturation Oxygen saturation in Arterial blood by Pulse oximetry Respiratory rate Pain severity - 0-10 verbal numeric rating [Score] - Reported Body temperature Systolic And Diastolic Provider Name and Address Organization Details Last Updated DateTime 5 99579.4 5 g 57 /min 98 % 98 % 18 /min 2 98.1 [degF] 110/68 mm[Hg] Mickie Hutchinson ID - [facility] 5 08:21:01 Date Recorded Body height Body mass index (BMI) Body weight Body temperature Heart rate Oxygen saturation Oxygen saturation in Arterial blood by Pulse oximetry Respiratory rate Pain severity - 0-10 verbal numeric rating [Score] - Reported Systolic And Diastolic Provider Name and Address Organization Details Last Updated DateTime 3 165.1 cm 27.1 kg/m2 68351.5 6 g 97.9 [degF] 95 /min 97 % 97 % 18 /min 7 122/78 mm[Hg] Mickie Hutchinson [facility] 3 15:37:42 Social History Question Answer Notes LastModified by Organizat ion Details LastModified Time Tobacco Smoking Status Current Some Day Smoker Tiffanie garcia [facility] 08/10/2017 09:38:00 Do You Have An Advance Directive? No [email or web address] Information not available 10/20/2016 Are You Blind Or Do You Have Difficulty Seeing? No [email or web address] Information not available 10/20/2016 Is Blood Transfusion Acceptable In An Emergency? Yes [email or web address] Information not available 10/20/2016 What Is Your Level Of Caffeine Consumption? Occasional [email or web address] Information not available 10/20/2016 How Much Tobacco Do You Chew? None [email or web address] Information not available 10/20/2016 Are You Deaf Or Do You Have Serious Difficulty Hearing? No [email or web address] Information not available 10/20/2016 What Type Of Diet Are You Following? REGULAR [email or web address] Information not available 10/20/2016 Which Illicit Or Recreational Drugs Have You Used? None [email or web address] Information not available 01/12/2017 What Is The Highest Grade Or Level Of School You Have Completed Or The Highest Degree You Have Received? [id number] [email or web address] Information not available 09/20/2018 How Many Days Of Moderate To Strenuous Exercise, Like A Brisk Walk, Did You Do In The Last 7 Days? 0 [email or web address] Information not available 09/20/2018 On Those Days That You Engage In Moderate To Strenuous Exercise, How Many Minutes, On Average, Do You Exercise? 0 [email or web address] Information not available 09/20/2018 Have There Been Any Changes To Your Family Or Social Situation? No Information no t available 09/12/2022 How Hard Is It For You To Pay For The Very Basics Like Food, Housing, Medical Care, And Heating? [id number] [email or web address] Information not available 09/20/2018 What Is The Fluoride Status Of Your Home? Unknown Information not available 09/12/2022 Live Alone Or With Others? With Others [email or web address] Information not available 10/20/2016 Do You Have A Medical Power Of Computer Equipment Installer? No Information not available 09/12/2022 What Was The Date Of Your Most Recent Tobacco Screening? 07/10/2025 Information not available 07/10/2025 How Many Children Do You Have? 3 Information not available 10/20/2016 Performs Monthly Self-breast Exam? Yes [email or web address] Information no t available 10/20/2016 Do You Use Protection During Sex? Always Information not available 10/20/2016 What Is Your Relationship Status? [email or web address] Information not available 10/20/2016 Seat Belts Used Routinely Yes [email or web address] Information not available 10/20/2016 Are You Sexually Active? Yes [email or web address] Information not available 10/20/2016 Do You Have Smoke And Carbon Monoxide Detectors In Your Home? Yes Information not available 09/12/2022 At What Age Did You Start Smoking Tobacco? 12 [email or web address] Information not available 10/20/2016 Are You Passively Exposed To Smoke? Yes Information no t available 09/12/2022 General Stress Level Low [email or web address] Information not available 10/20/2016 Do You Use Sunscreen Routinely? No Information not available 10/20/2016 Has Tobacco Cessation Counseling Been Provided? Yes [email or web address] Information not available 08/10/2017 On What Date Was Tobacco Cessation Counseling Provided? 07/10/2025 Information not available 07/10/2025 How Many Years Have You Smoked Tobacco? 39 [email or web address] Information not available 10/20/2016 Do You Have Difficulty Walking Or Climbing Stairs? No [email or web address] Information not available 10/20/2016 Sex: Female Functional Status Question Answer Note LastModified by Organizat ion Details LastModified Time What is your level of alcohol consumption? None [email or web address] Information not available 10/20/2016 Are you currently employed? Yes [email or web address] Information not available 10/20/2016 Do you have access to reliable transportation? No Information not available 09/12/2022 Urinary incontinence assessment performed? Yes [email or web address] Information not available 08/10/2017 Are you able to walk independently without assistance or assistive devices? [email or web address] Information not available 06/29/2017 Do you have difficulty doing errands alone? No [email or web address] Information not available 10/20/2016 Are you able to care for yourself independently? 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 No [email or web address] Information not available 10/20/2016 What is your exercise level? None Information not available 10/20/2016 Mental Status Question Answer Note LastModified by Organizat ion Details LastModified Time Do you feel stressed (tense, restless, nervous, or anxious, or unable to sleep at night)? [id number] [email or web address] Information not available 09/20/2018 Do you have difficulty concentrating, remembering or making decisions? No [email or web address] Information no t available 10/20/2016 Family History Relationship Description Onset Age of this Age Resolved Age Notes LastModified by Organization Details LastModified Time Mother Chronic obstructive pulmonary disease [email or web address] Not available 2015 10:05:41 Father Malignant tumor of colon [email or web address] Not available 08/10 09:36:49 Maternal Grandmother Diabetes mellitus [email or web address] Not available 08/10 09:37:07 Paternal Grandmother Diabetes mellitus [email or web address] Not available 08/10 09:37:07 Medical History Condition [...] colitis N Cerebrovascular Disease N Depression N Guillain-[place] N Sleep Apnea N Aneurysm N Bronchitis N Heart Disease N Hypertension N Pre-Eclampsia N Suicidal Ideation N Osteoporosis N Gynecological History Statement/Question Response Abnormal Pap N Date of Last Mammogram 10/04/2018 On BCP's at Conception? N Post Menopausal Bleeding N STIs/STDs N Current Control Method None Age at Menarche 12 Age at First Child 20 Last Annual Exam/Provider 09-20-2018/MAR Last Lipids Family DOC Date of Last [...] influenza, unspecified formulation 4 completed Not Available [facility] 12/01/2023 10:29:57 pneumococcal polysaccharide PPV23 4 completed Not Available [facility] 12/01/2023 10:29:57 COVID-19 vaccine, vector-nr, rS-Ad26, PF, 0.5 mL 1 completed Mickie Hutchinson null, [place] - [facility] 09/15/2022 09:46:23 MMR 8 completed Mickie Hutchinson null, ID - [facility] 09/15/2022 09:46:23 varicella 8 completed Mickie Hutchinson null, ID - [facility] 09/15/2022 09:46:23 Past Encounters Encounter ID Performer Location Encounter Start Date Encounter Closed Date Diagnosis/Indication Diagnosis SNOMED-CT Code Diagnosis ICD10 Code Diagnosis IMO Codes Diagnosis Note [id number] [facility] [address] [place] [address] 07/27/2008 00:00:00 [id number] [facility] [address] [place] [address] 09/10/2009 00:00:00 [id number] [facility] [address] [place] [address] 03/27/2010 00:00:00 [id number] [facility] [address] [place] [address] 03/27/2010 00:00:00 [id number] [facility] [address] [place] [address] 10/17/2010 00:00:00 [id number] [facility] [address] [place] [address] 04/24/2011 00:00:00 [id number] [facility] [address] [place] [address] 07/09/2011 00:00:00 [id number] [facility] [address] [place] [id number] 10/09/2011 00:00:00 [id number] [facility] [address] [place] [address] 12/29/2013 00:00:00 [id number] [facility] [address] [place] [id number] 07/06/2014 00:00:00 [id number] [facility] [address] [place] [address] 12/17/2011 00:00:00 [id number] [facility] [address] [place] [address] 2014 00:00:00 [id number] [facility] [address] [place] [id number] 04/16/2012 00:00:00 [id number] [facility] [address] [place] [address] 11/27/2014 00:00:00 [id number] [facility] [address] [place] [address] 12/22/2012 00:00:00 [id number] [facility] [address] [place] [address] 12/19/2014 00:00:00 [id number] [facility] [address] [place] [address] 02/28/2015 00:00:00 [id number] [facility] [address] [place] [address] 12/16/2013 00:00:00 [id number] [facility] [address] [place] [address] 12/29/2013 00:00:00 [id number] [facility] [address] [place] [address] 03/12/2015 00:00:00 [id number] [facility] [address] [place] [address] 06/04/2015 00:00:00 [id number] [facility] [address] [place] [address] [address] 07/17/2015 00:00:00 [id number] [facility] [address] [place] [address] 07/17/2015 00:00:00 [id number] [facility] [address] [place] [address] [address] 08/14/2015 00:00:00 [id number] [facility] [address] [place] [address] [address] 08/27/2015 00:00:00 [id number] [facility] [address] [place] [address] 11/20/2015 00:00:00 [id number] GAYATRI Santiago [employer] [address] [place] [address] [place] [id number] 10/20/2016 09:46:10 10/20/2016 10:18:31 Surveillance of depot contraception done 6212009154 9104 Z30.42 Hypothyroidism 31059268 E03.9 [id number] GAYATRI Santiago [employer] [address] [place] [address] [place] [address] 01/12/2017 09:48:11 01/12/2017 10:15:47 Uses depot contraception 429280353 Z30.42 [id number] GAYATRI Santiago [employer] [address] [place] [address] [place] [address] 04/06/2017 09:08:32 04/06/2017 09:36:06 Surveillance of depot contraception done 4154784756 9104 Z30.42 [id number] GAYATRI Santiago [employer] [address] [place] [address] [place] [id number] 06/29/2017 09:13:23 06/29/2017 09:47:11 Contraception care management 271707976 Z30.9 [id number] GAYATRI Santiago [employer] [address] [facility] [place] [address] 08/10/2017 09:23:46 08/10/2017 10:21:59 Body mass index 30+ - obesity 648318486 Z68.39 Routine gy necologic examination done 0284327580 9101 Z01.419 Examinatio n of blood pressure 245590638 Z01.30 BP goal < 140/90 Depression screening 171 530043 Z13.89 Diet education 93155969 Z71.3 6809-1277 calorie diet recommende d with emphasis on low saturated fat, low carbohydra te, and adequate protein intake. She declines dietary consult. Counseling 985843496 Z71 .9 Exercise counselgeorges onofre. Patient encouraged to exercise 30 minutes 5 days a week. Screening for malignant neoplasm of breast 018721346 Z12.31 Screening for malignant neoplasm of cervix 148179911 Z12.4 Z11.51 Z11.8 Amenorrhea 44349172 N91. 2 Rheumatoid arthritis 698 54805 M06.9 Hypothyroidism 91905591 E89.0 Cigarette smoker 5166394 7 F17.210 Tobacco use discourage d. Techniques for quitting smoking discussed including pharmaceut icals (Nicotine patches, gum, Zyban, and Chantix) and behavioral therapy (Ludwig Elizabeth). Immediate and keno terminal operator cardiovasc ular and respirator y benefits of smoking cessation discussed. Lung cancer risk reduction also discussed. Therapeuti c drug monitoring assay 41153589 Z51.81 M06.9 [id number] GAYATRI Santiago [employer] [address] [place] [address] [place] [id number] 09/20/2018 09:59:14 09/20/2018 11:15:30 Routine gynecologic examination done 4724125923 9101 Z01.419 Examinatio n of blood pressure 799579224 Z01.30 BP goal < 140/90 Depression screening 171 711493 Z13.89 Diet education 54162322 Z71.3 4366-8941 calorie diet recommende d with emphasis on low saturated fat, low carbohydra te, and adequate protein intake. She declines dietary consult. Counseling 255386765 Z71 .82 Exercise counselgeorges onofre. Patient encouraged to exercise 30 minutes 5 days a week. Vaccine de clined by patient 4675788939 02 Z28.21 Screening for malignant neoplasm of breast 340324363 Z12.31 Screening for malignant neoplasm of colon 696249795 Z12.11 Postmenopausal state 764 78549 Z78.0 Screening for malignant neoplasm of cervix 925442960 Z12.4 Z11.51 Z11.8 Rheumatoid arthritis 698 85529 M06.9 Body mass index 25-29 - overweight 998271334 Z68.27 [id number] Edy Valdes [place] [address] 09/12/2022 11:09:26 09/12/2022 12:03:38 Adult health examination 481568130 Z00.00 [id number] [place] [address] 09/15/2022 09:27:03 09/15/2022 09:41:36 Adult health examination 407087418 Z00.00 [id number] [place] [address] 12/02/2022 14:31:36 12/02/2022 15:34:13 Pain of right ankle joint 7725012887 4595730 M25.571 xrays and steroids if no improvemen t call dr gamboa [id number] Edy Valdes[address] [address] 12/04/2022 10:27:06 12/04/2022 11:08:53 Goiter 8307871 E04.9 Pain of ri ght ankle joint 9524521760 5585782 M25.571 Needs to call for appointmen t asad [id number] Edy Valdes[address] [address] 01/08/2023 09:31:40 01/08/2023 09:48:41 Conjunctivitis 2593613 H10.9 contact precaution sif worsen or no improvemen t return [id number] Edy Valdes[address] [address] 10/09/2023 15:14:18 10/09/2023 16:00:23 Acute bronchitis 28739360 J20.9 [id number] [facility] [place] [address] 12/01/2023 10:13:27 12/01/2023 12:08:55 Acute maxillary sinusitis 47424738 J01.00 [id number] [facility] [place] [address] 05/09/2024 14:21:06 05/09/2024 15:23:55 Acute serous otitis media of bilateral ears [id number] H65.03 Streptococ aden sore throat [id number] J02.0 contact precaution s discussedi f no improvemen t return [id number] [facility] [place] [id number] 1 07/10/2025 11:42:23 07/10/2025 12:09:58 Low blood pressure [id number] I95.9 [id number] ekg done-sent to ed for [facility]report [facility] [id number] [facility] [place] [id number] 1 07/11/2025 08:01:21 07/11/2025 10:24:27 Bradycardia [id number] R00.1 [id number] cardiology appoint at 145 today Headache [id number] R51.9 [id number] will order outpt iv fluids order sent to [facility] out pt Health Concerns Section Related Observation LastModified by Organization Detai ls LastModified Time None Recorded Concern Status LastModified by Organization Details LastModified Time None Recorded Advance Directives Directive N: Payers Insurance Date Sequence Insurance Name Policy Number Policy Chen Covered Member ID Chen Member ID Guarantor Name 01/09/2017 1 [facility] ([facility] [id number] Monique Linder [id number] Monique Linder 07/10/2025 1 [facility] [id number] Monique Linder [id number] Monique Linder 12/04/2022 1 [employer] [id number] Monique Chinchillaer [id number] Monique Chinchillaer 12/01/2023 1 [employer] [id number] Monique Chinchillaer [id number] Monique Linder Notes Date Note Type Note Provider Name and Address Organization Details Recorded Time 10/09/2023 text/html 58 yr old female presents for cough, sore throat and congestion since Thursday. Edy DeutschGAYATRI retana [address], [place], [address], [place] - [facility] 10/09/2023 15:59:19 12/01/2023 text/html 58 yr old female presents with cough and congestion for a few weeks, fever started yesterday. now having green thick drainage and sinus pressure Valerieeunice GAYATRI retana [address], [place], [address], [place] - [facility] 12/01/2023 11:49:48 05/09/2024 text/html ROS as noted in the HPI 58 yr old female presents with cough, sinus drainage and sore throat. She reports having a fever at times. Edy ValdesGAYATRI [address], [place], [address], [place] [facility] 05/09/2024 15:23:53 07/10/2025 text/html ROS as noted in the HPI 59 yr old female presents for low bp concerns. She noticed she was dizzy, fatigue, sleepy,tired and had headache two nights ago. Her bp has been as low as 80/59 at home. denies chest pain,pressure or tightness. states she is also having a burning pain in left lower ext. Edy HerzogGAYATRI fowler [address], [place], [address], [place] - [facility] 07/10/2025 13:32:45 07/11/2025 text/html Emergency Depart ment Follow-Up RecordReported by PatientEmergency Room Follow-Up RecordFor discharge information, patient reportsname of hospital/urgent care patient was seen: ([facility]),patient presented to hospital/urgent care on or [...] pt states she believes fluids helped. Edy Deutschmazin, [employer]ICULTURAL PLOW OPERATOR [address], [place], [address], [place] - [facility] 07/11/2025 09:43:11 OBGyn Episode Ob Episode Information Episode Created Date Number of Fetuses Patient Bloodtype Patient rh Status Prepregnancy Weight lbs Domestic Partner Domestic Partner Phone Father Name Network Systems Administrator Status 08/10/20 17 1 CLOSED Fetus Data [...] Domestic Partner Domestic Partner Phone Father Name Network Systems Administrator Status 08/10/20 17 1 CLOSED Fetus Data [...] Domestic Partner Domestic Partner Phone Father Name Network Systems Administrator Status 08/10/20 17 1 CLOSED Fetus Data [...]
--- NOTE | 2025-08-29 08:00 | CT_ITS ---
FINAL REPORT TECHNIQUE: Axial imaging of the head was obtained without contrast. This study was performed with techniques to keep radiation doses as low as reasonably achievable, (ALARA). Individualized dose reduction techniques using automated exposure control or adjustment of mA and/or kV according to the patient''s size were employed. CLINICAL HISTORY: headache FINDINGS: There is mild atrophy. The ventricles are normal in size. There is no evidence of hemorrhage. No masses are identified. No extra-axial fluid is seen. The sinuses are normal. There is no acute osseous abnormality. IMPRESSION: Mild atrophy without acute intracranial abnormality. Reviewed, Interpreted and Dictated by Michael Villarreal MD Transcribed by Birdie Blackwell Authenticated and [facility]
== END 2025-08-29 23:59 | disposition home or self-care (01) ==
LOC: RAD 07:49
PROVIDERS: PCP Nurse Practitioner Family; Visit Provider Nurse Practitioner
DX: G31.9 Degenerative disease of nervous system, unspecified (principal); R53.83 Other fatigue; R07.9 Chest pain, unspecified; R94.39 Abnormal result of other cardiovascular function study; R51.9 Headache, unspecified
CPT/HCPCS: 70450

== ENCOUNTER 2025-10-04 08:17 | Day surgery (SDC) | payer OTHER, SELFPAY ==
[2025-10-04] VITALS (13 sets, daily range): BP systolic 108–127; BP diastolic 51–89; PULSE 53–72; RESP 18–20; TEMP 36.6; O2SAT 91–99; BMI 26.1
--- NOTE | 2025-10-04 07:15 | IR_ITS ---
APPROVED REPORT Patient Location: Outpatient PROCEDURES Left heart catheterization Left ventriculogram Selective coronary angiogram Drug-eluting stent deployment to the proximal mid and distal dominant right coronary artery in a contiguous manner INDICATION Coronary artery disease, Angina pectoris, Abnormal CCTA???high risk Informed consent was obtained prior to the procedure. COMPLICATIONS NONE Estimated Blood Loss: LESS THAN 10 ML TECHNIQUE One percent lidocaine used to anesthetize the right anterior aspect of the wrist. The right radial artery was accessed via the Seldinger technique. A 6 Indonesian sheath was placed in the right radial artery. 2.5 mg of Verapamil, 800 mcg of nitroglycerin, 1mg Lidocaine and 5000 U Heparin were given through the arterial sheath. The JL3 catheter was also used to perform left heart catheterization, left ventriculogram and selective coronary angiogram. At the end the diagnostic angiogram therapeutic Was administered giving a therapeutic ACT and the guide cath was placed in the right coronary followed by Choice PT export wire placed distally. A 4 mm x 38 mm [place] frontier stent was placed in the mid to distal right coronary artery at 16 fatimah. An additional 4.5 x 26 mm [place] frontier stent was placed proximal to the for stent yet still overlapping and deployed at 16 fatimah. The balloon was advanced and deployed at 18 fatimah throughout the 4 mm stent. DANUTA-3 flow was present before and after the procedure. At the end the procedure the apparatus was removed the sheath was removed hemostasis was achieved using TR banding patient was transferred to the postoperative care in stable condition ANGIOGRAPHIC RESULTS The left main artery Normal The left anterior descending artery Is proximally normal and has mid vessel 30 to 40% stenoses The circumflex artery Nondominant with mid vessel 10% luminal regularities The right coronary artery Large and dominant with proximal 30 and 40% stenosis in the mid vessel distal 70% stenosis The BUCKLEY ventriculogram reveals Normal 65% The left ventricular end-diastolic pressure Elevated at 30 mmHg IMPRESSION Moderate mid LAD disease as described above Moderate to severe disease in the mid to distal dominant right coronary Successful stenting of the proximal mid and distal dominant right coronary severe disease reduced to 0% with 2 contiguous drug-eluting stents Normal ejection fraction Moderately elevated LVEDP PLAN 1. Dual antiplatelet therapy 2. Rehabilitation 3. Avoidance of tobacco products 4. LDL less than 55 achieved with high intensity statin 5. Risk factor modification Electronically signed by : Иван Sanchez MD 10/04/2025 14:31:45
[2025-10-04 08:51] LABS: Hematocrit 42.1 % (37.0-47.0); Hemoglobin 14.1 g/dL (12.2-16.2); Immature Granulocytes % 0.3 %; Mean Corpuscular HGB Conc 33.5 g/dL (31.8-35.4); Mean Corpuscular Hemoglobin 30.5 pg (27.0-31.2); Mean Corpuscular Volume 91.1 fl (81-99); Nucleated Red Blood Cells % 0 %; Platelet Count 243 K/mm3 (142-424); Red Blood Count 4.62 M/mm3 (4.20-5.40); Red Cell Distribution Width-SD 41.9 fL; White Blood Count 5.8 K/mm3 (4.8-10.8)
[2025-10-04 08:54] LABS: Anion Gap 10.7 mEq/L (5-15); Blood Urea Nitrogen 18 mg/dl (7-17); Calcium 10.0 mg/dl (8.4-10.2); Carbon Dioxide 29 mmol/L (22.0-30.0); Chloride 105 mmol/L (98-107); Creatinine Clearance Estimated 66 mL/min (50-200); Creatinine,Serum 0.90 mg/dl (0.52-1.04); Estimated Glomerular Filt Rate 63 ml/min (>60); GFR (African American) 77 ML/MIN (>60); Glucose 98 mg/dl (74-100); Potassium 3.7 mmoL/L (3.5-5.1); Sodium 141 mmol/L (136-145)
[2025-10-04] MEDS: 0.9 % SODIUM CHLORIDE 500 ML 999 ML IV (10:28)
[2025-10-04] MEDS: NITROGLYCERIN 800MCG/8ML SYR (CATH LAB) 800 MCG IA (10:28)
[2025-10-04] MEDS: HEPARIN 1,000 UNITS/500ML NS (CATH LAB) 3000 UNIT IV (10:29)
[2025-10-04] MEDS: VERAPAMIL 2.5MG/ML 2ML VIAL 2.5 MG IV (10:29)
[2025-10-04] MEDS: LIDOCAINE 1% 10ML MDV 10 ML IJ (10:29)
[2025-10-04] MEDS: HEPARIN 1,000 UNITS/ML 10ML VIAL (CATH LAB) 5000 UNIT IV ×2 (10:29→10:46)
[2025-10-04] MEDS: MIDAZOLAM HCL 1MG/ML 5ML VIAL 1 MG IV (10:54)
[2025-10-04] MEDS: FENTANYL 100MCG/2ML VIAL 50 MCG IV (10:54)
[2025-10-04] MEDS: PRASUGREL 10MG TAB 60 MG PO (11:04)
[2025-10-04] MEDS: ASPIRIN EC 325MG TABLET 325 MG PO (11:04)
== END 2025-10-04 14:58 | disposition home or self-care (01) ==
PROVIDERS: PCP Nurse Practitioner Family; Visit Provider Internal Medicine
PROC: 4A023N7 Measurement of Cardiac Sampling and Pressure, Left Heart, Percutaneous Approach (ICD-10-PCS; CPT 93452; principal; 2025-10-04 09:20)
DX: I25.119 Atherosclerotic heart disease of native coronary artery with unspecified angina pectoris (principal); R94.39 Abnormal result of other cardiovascular function study; R93.1 Abnormal findings on diagnostic imaging of heart and coronary circulation; R06.02 Shortness of breath; F17.210 Nicotine dependence, cigarettes, uncomplicated; Z79.82 Long term (current) use of aspirin; Z79.02 Long term (current) use of antithrombotics/antiplatelets; Z79.890 Hormone replacement therapy; Z79.899 Other long term (current) drug therapy
CPT/HCPCS: 80048; 85025; 92928; 93458; 99152; 99153; C1725; C1769; C1874; C9600; J1200; J1644; J2003; J3010; J7040

== ENCOUNTER 2025-10-06 15:43 | Outpatient (CLI) | payer OTHER, SELFPAY ==
--- OUTSIDE RECORDS SUMMARY | 2025-09-21 10:00 | XMS_ITS | Encounter Summary ---
Author Organization Healthcare Address [address] [place] [address] Care Team Providers Care Allergy And Immunology Specialist Name Role Phone Edy Valdes GAYATRI Primary Care Provider [phone] Reason for Visit * Reason Comments Seropositive rheumatoid arthritis of mul tiple sites (CMS/HC Encounter Details Date Type Department Care Team (Latest Contact Info) Description 09/21/2025 11:00 AM EDT Office Visit [facility] [address] [place] [address] Mason Barraza, GAYATRI [address] [place] [address] Seropositive rheumatoid arthritis of multiple sites (CMS/HCC) (Primary Dx); Other secondary osteoarthritis of multiple sites; Fibromyalgia; High risk medication use; Tobacco abuse Social History Tobacco Use Types Packs/Day Years Used Date Smoking Tobacco: Former Smokeless Tobacco: Never Tobacco Cessation:Counseling Given: Not Answered Comments:Current vape user Alcohol Use Standard Drinks/Week Comments Not Currently 0 (1 standard drink = 0.6 oz pure alcohol) Alcoholic Drinks/day: Minimum alcohol consumption PHQ-2 Answer Date Recorded Patient Health Questionnaire-2 Score 0 09/21/2025 PHQ-9 Answer Date Recorded Patient Health Questionnaire-9 Score 0 09/21/2025 PHQ-2A Answer Date Recorded Patient Health Questionnaire-2 Score 0 07/17/2023 Comments Unknown Sex and Gender Information Value Date Recorded Sex Assigned at Not on file Legal Sex Female 7:38 PM EDT Gender Identity Not on file Sexual Orientation Not on file documented as of this encounter Last Filed Vital Signs Vital Sign Reading Time Taken Comments Blood Pressure 102/67 09/21/2025 10:42 AM EDT Pulse 69 09/21/2025 10:42 AM EDT Temperature 36.8 C (98.2 F) 09/21/2025 10:42 AM EDT Respiratory Rate 16 09/21/2025 10:42 AM EDT Oxygen Saturation 94% 09/21/2025 10:42 AM EDT Inhaled Oxygen Concentration - - Weight 72 kg (158 lb 11.7 oz) 09/21/2025 10:42 A M EDT Height 165.1 cm (5' 5 ) 09/21/2025 10:42 AM EDT Body Mass Index 26.41 09/21/2025 10:42 AM EDT documented in this encounter Functional Status * Over the past 2 weeks, how often have you been bothered by any of the following problems? Question Answer Date of Assessment Author Little interest or pleasure in doing things Not at all 09/21/2025 10:45 AM EDT Jaison Avila Feeling down, depressed, or hopeless Not at all 09/21/2025 10:45 AM EDT Jaison Avila Patient Health Questionnaire -2 Score 0 09/21/2025 10:45 AM EDT Jaison Avila * Question Answer Date of Assessment Author Trouble falling or staying a sleep, or sleeping too much Not at all 09/21/2025 10:45 AM EDT Jaison Avila Feeling tired or having suzanne le energy Not at all 09/21/2025 10:45 AM EDT Jaison Avila Poor appetite or overeating Not at all 09/21/2025 10 :45 AM EDT Jaison Avila Feeling bad about yourself - or that you are a failure or have let yourself or your family down Not at all 09/21/2025 10:45 AM EDT Jaison Lino Trouble concentrating on thi ngs, such as reading the newspaper or watching television Not at all 09/21/2025 10:45 AM EDT Jaison Avila Moving or speaking so slowly that other people could have noticed? Or the opposite - being so fidgety or restless that you have been moving around a lot more than usual. Not at all 09/21/2025 10:45 AM EDT Jaison Avila Thoughts that you would be b niles off or hurting yourself in some way Not at all 09/21/2025 10:45 AM EDT Jaison Avila Patient Health Questionnaire -9 Score 0 09/21/2025 10:45 AM EDT Jaison Avila * How difficult have these problems made it for you to do your work, take care of things at home, or get along with other people? Answer Date of Assessment Author Not difficult at all 09/21/2025 10:45 AM EDT Jaison White documented as of this encounter Miscellaneous Notes * Progress Notes - Mason Barraza, GAYATRI - 09/21/2025 11:00 AM EDT Images from the original note were not included. Monique Linder is a 60 y.o. female Chief complaint: sero+ RA, fms Subjective HPI Monique Linder is a 60 y.o. female with PMH significant for hypothyroidism, sero+ RA, FMS, OA, seen today for ra/fms. Last seen 02/21. She has a h/o long-standing RA with +rf/ccp; failing Methotrexate for transaminitis; maintained on enbrel. She also has OA of knees, R shoulder; FMS controlled on gbp. Last visit she was maintained on enbrel, diclofenac, gbp. 09/21/25: Needs enbrel refill. Doing pretty well. Denies enbrel related s/e. Has good days and bad days- adverse weather makes her joint pain worse. Denies sob, cough other than [place] with significant stair climbing. Having to have heart cath and suspects she will be stented- she says. BP can drop she tells me. Joints affected: Shoulders- ams 10 minutes; activity improves Rheum medication hx: Enbrel Gbp Diclofenac % improvement on current medication: 90 Review of Systems Constitutional: Negative for fever. Respiratory: Negative for shortness of breath. Cardiovascular: Negative for chest pain. Genitourinary: Negative for hematuria. Musculoskeletal: Positive for arthralgias. Negative for joint swelling. Skin: Negative for rash. The following portions of the chart were reviewed this encounter and updated as appropriate: Past Medical History[1] Surgical History[2] Social History Socioeconomic History Marital status: Spouse name: Not on file Number of children: Not on file Years of education: Not on file Highest education level: Not on file Occupational History Not on file Tobacco Use Smoking status: Former Smokeless tobacco: Never Tobacco comments: Current vape user Vaping Use Vaping status: Every Day Substance and Sexual Activity Alcohol use: Not Currently Comment: Alcoholic Drinks/day: Minimum alcohol consumption Drug use: Never Comment: Drug use: No illicit drug use Sexual activity: Not on file Other Topics Concern Not on file Social History Narrative Daily caffeine consumption, more than 8 servings a day Marital Status: Electronic cigarette use Social Drivers of Health Financial Resource Strain: Not on file Food Insecurity: Not on file Transportation Needs: Not on file Physical Activity: Not on file Stress: Not on file Social Connections: Not on file Intimate Partner Violence: Not on file Housing Stability: Not on file Family History[3] Allergies[4] Current Medications[5] Objective Last visit labs: Appointment on 02/15/2025 Component Date Value Ref Range Status Sedimentation Rate 02/15/2025 14 <30 mm/hr Final CRP, Plasma 02/15/2025 <3.0 <=8.0 mg/L Final Glucose, Plasma 02/15/2025 71 (L) 74 - 99 mg/dL Final BUN, Plasma 02/15/2025 18 8 - 23 mg/dL Final Creatinine, Plasma 02/15/2025 0.96 0.60 - 1.10 mg/dL Final BUN/Creatinine Ratio 02/15/2025 19 Final Sodium, Plasma 02/15/2025 144 136 - 145 mmol/L Final Potassium, Plasma 02/15/2025 4.2 3.6 - 4.9 mmol/L Final Chloride, Plasma 02/15/2025 107 97 - 107 mmol/L Final CO2, Plasma 02/15/2025 29 22 - 29 mmol/L Final Anion Gap 02/15/2025 8 6 - 16 mmol/L Final Total Calcium, Plasma 02/15/2025 9.4 8.9 - 10.2 mg/dL Final Total Protein 02/15/2025 7.0 6.3 - 7.9 g/dL Final Albumin, Plasma 02/15/2025 4.2 3.5 - 5.2 g/dL Final AST, Plasma 02/15/2025 14 10 - 35 U/L Final ALT, Plasma 02/15/2025 13 10 - 35 U/L Final Alkaline Phosphatase, Plasma 02/15/2025 83 46 - 142 U/L Final Total Bilirubin, Plasma 02/15/2025 0.2 0.2 - 1.1 mg/dL Final eGFRcr 02/15/2025 67.5 mL/min/1.73m*2 Final Reported eGFRcr in mL/min/1.73m2 is based the CKD-EPI 2020 equation that does not use a race coefficient. WBC Count 02/15/2025 8.10 3.70 - 10.30 10*3/uL Final RBC Count 02/15/2025 4.54 3.90 - 5.20 10*6/uL Final HGB 02/15/2025 13.5 11.2 - 15.7 g/dL Final HCT 02/15/2025 41.5 34.0 - 45.0 % Final Platelet Count 02/15/2025 235 155 - 369 10*3/uL Final MCV 02/15/2025 91 79 - 98 fL Final MCH 02/15/2025 29.7 26.0 - 32.0 pg Final MCHC 02/15/2025 32.5 30.7 - 35.5 g/dL Final RDW 02/15/2025 12.7 11.5 - 14.5 % Final MPV 02/15/2025 12.5 8.8 - 12.5 fL Final nRBC 02/15/2025 0.0 <=0.0 per 100 WBCs Final Differential Type 02/15/2025 Automated Final Neutrophils % 02/15/2025 54 % Final Lymphocytes % 02/15/2025 33 % Final Monocytes % 02/15/2025 7 % Final Eosinophils % 02/15/2025 4 % Final Basophils % 02/15/2025 1 % Final Immature Granulocytes % 02/15/2025 1 % Final Neutrophils Absolute 02/15/2025 4.46 1.60 - 6.10 10*3/uL Final Lymphocytes Absolute 02/15/2025 2.66 1.20 - 3.90 10*3/uL Final Monocytes Absolute 02/15/2025 0.60 0.30 - 0.90 10*3/uL Final Eosinophils Absolute 02/15/2025 0.29 0.00 - 0.50 10*3/uL Final Basophils Absolute 02/15/2025 0.05 0.00 - 0.10 10*3/uL Final Immature Granulocytes Absolute 02/15/2025 0.04 0.00 - 0.06 10*3/uL Final Vitals: 09/21/25 1042 BP: 102/67 Pulse: 69 Resp: 16 Temp: 36.8 ??C (98.2 ??F) SpO2: 94% Physical Exam Vitals reviewed. Constitutional: General: She is not in acute distress. Appearance: Normal appearance. She is not ill-appearing, toxic-appearing or diaphoretic. HENT: Head: Normocephalic and atraumatic. Mouth/Throat: Mouth: Mucous membranes are dry. Eyes: Extraocular Movements: Extraocular movements intact. Conjunctiva/sclera: Conjunctivae normal. Cardiovascular: Rate and Rhythm: Normal rate and regular rhythm. Pulses: Normal pulses. Pulmonary: Effort: Pulmonary effort is normal. No respiratory distress. Musculoskeletal: General: No swelling or tenderness. Normal range of motion. Cervical back: Normal range of motion. Right lower leg: No edema. Left lower leg: No edema. Skin: General: Skin is warm and dry. Capillary Refill: Capillary refill takes less than 2 seconds. Coloration: Skin is not jaundiced or pale. Findings: No lesion or rash. Neurological: General: No focal deficit present. Mental Status: She is alert and oriented to person, place, and time. Gait: Gait normal. Psychiatric: Mood and Affect: Mood normal. Behavior: Behavior normal. Thought Content: Thought content normal. Joint Exam 09/21/2025 All documented joints were normal 09/21/2025 MAC-28 (ESR) -- MAC-28 (CRP) -- Tender (MAC-28) 0 / 28 Swollen (MAC-28) 0 / 28 Provider Global -- Patient Global -- ESR -- CRP -- Swollen Joint Count: Swollen: 0 Tender Joint Count: Tender: 0 Patient global assessment: 0/10 Rapid 3 score: 4.7/30 CDAI: 0 Assessment/Plan 1. Seropositive rheumatoid arthritis of multiple sites (CMS/HCC) (Primary) RF, CCP positive based on prior records, didn't repeat it recently as it wouldn't change of outcome. TJC,SJC 0 CDAI 0 Low disease activity ESR/CRP in 7622-9244 within normal limits. Will continue Enbrel - etanercept (Enbrel SureClick) 50 MG/ML injection; Inject 1 mL (50 mg) under the skin 1 (one) timeper week. Dispense: 4 mL; Refill: 7 - C-reactive protein; Future - Sedimentation Rate, Automated; Future 2. Other secondary osteoarthritis of multiple sites Had OA in shoulder, hand, feet based on prior films. Will renew diclofenac PRN - diclofenac (Voltaren) 75 MG EC tablet; Take 1 tablet (75 mg) by mouth 2 (two) times a day as needed (severe pain). Do not crush, chew, or split. Dispense: 180 tablet; Refill: 1 3. Fibromyalgia Controlled. - gabapentin (Neurontin) 300 MG capsule; Take 1 capsule (300 mg) by mouth in the morning and 1 capsule (300 mg) in the evening and 1 capsule (300 mg) before bedtime. Dispense: 270 capsule; Refill: 1 4. High risk medication use Vaccinated. Hepatitis , Quantiferon panel negative. CBC, CMP in 08/23 within normal limits. - CBC and differential; Future - Comprehensive metabolic panel; Future 5. Tobacco abuse Still vaping and we discussed cessation RTC 6 mo Thanks so much for allowing me to participate in the care of this patient. If you have any questions or concerns please feel free to reach out for further clarification. Mason Barraza APRN The patient was counseled about diagnostic results, instruction for management, risk factors reduction, prognosis, compliance with visits and treatment, risks and benefits of treatments options. Prior notes (by external physicians) and results were reviewed by me with independent interpretation of labs and imaging. My note will be sent to PCP and other consulting physicians. Parts of this note were dictated using [employer] Direct voice recognition software. As a result, errors may occur. When identified, these tractor expert errors are corrected, but while every attempt is made to prevent/correct these, errors may still exist. [1] Past Medical History: Diagnosis Date Personal history of other endocrine, nutritional and metabolic disease History of hypothyroidism [2] Past Surgical History: Procedure Laterality Date TONSILLECTOMY N/A Tonsillectomy from [facility] WRIST SURGERY N/A Wrist Surgery from [facility] [3] Family History Problem Relation Name Age of Onset Conversions - Other Father Blockage of coronary artery of heart Colon cancer Father COPD Mother Diabetes Maternal Grandmother Hypertension Other [4] No Known Allergies [5] Current Outpatient Medications Medication Sig Dispense Refill Calcium Carb-Cholecalciferol 500-600 MG-UNIT tablet Take by mouth 1 (one) time each day. diclofenac (Voltaren) 75 MG EC tablet Take 1 tablet by mouth 2 times a day. Do not crush, chew, or split. 180 tablet 0 etanercept (Enbrel SureClick) 50 MG/ML injection Inject 1 mL (50 mg) under the skin 1 (one) time per week. 4 mL 7 gabapentin (Neurontin) 300 MG capsule Take 1 capsule by mouth 3 times a day. 270 capsule 1 levothyroxine (Synthroid, Levoxyl) 75 MCG tablet Take 1 tablet (75 mcg) by mouth 1 (one) time each day. No current facility-administered medications for this visit. documented in this encounter Plan of Treatment Upcoming Encounters Date Type Department Care Team (Late st Contact Info) Description 03/26/2026 9:00 AM EDT Office Visit [facility] [address] [place] [address] Mason Barraza APRN [address] [place] [address] documented as of this encounter Results * (ABNORMAL) Comprehensive Urine Drug Screening, Qualitative Assay, >= 27 Drug Classes (511:40 AM EDT) Acetaminophen Negative Negative 09/23/2025 6:42 PM EDT [facility] Alprazolam Negative Negative 09/23/2025 6:42 PM EDT [facility] Amantadine Negative Negative 09/23/2025 6:42 PM EDT [facility] Amitriptyline Negative Negative 09/23/2025 6:42 PM EDT [facility] Amphetamine Negative Negative 09/23/2025 6:42 PM EDT [facility] Atenolol Negative Negative 09/23/2025 6:42 PM EDT [facility] Benzoylecgonine Negative Negative 6:42 PM EDT [facility] Bisoprolol Negative Negative 09/23/2025 6:42 PM EDT [facility] Bupropion Negative Negative 09/23/2025 6:42 PM EDT [facility] Butalbital Negative Negative 09/23/2025 6:42 PM EDT [facility] Carbamazepine Negative Negative 09/23/2025 6:42 PM EDT [facility] Carisoprodol Negative Negative 09/23/2025 6:42 PM EDT [facility] Chlorpheniramine Negative Negative 09/23/20 6:42 PM EDT [facility] Citalopram Negative Negative 09/23/2025 6:42 PM EDT [facility] Clindamycin Negative Negative 09/23/2025 6:42 PM EDT [facility] Clonidine Negative Negative 09/23/2025 6:42 PM EDT [facility] Clopidogrel / Ticlopidine Negative Negative 09/23/2025 6:42 PM EDT [facility] Cocaethylene Negative Negative 09/23/2025 6:42 PM EDT [facility] Cocaine Negative Negative 09/23/2025 6:42 PM EDT [facility] Codeine Negative Negative 09/23/2025 6:42 PM EDT [facility] Cyclobenzaprine Negative Negative 6:42 PM EDT [facility] Desvenlafaxine Negative Negative 09/23/2025 6:42 PM EDT [facility] Dextromethorphan Negative Negative 09/23/20 6:42 PM EDT [facility] Diazepam Negative Negative 09/23/2025 6:42 PM EDT [facility] Diltiazem Negative Negative 09/23/2025 6:42 PM EDT [facility] Diphenhydramine Negative Negative 6:42 PM EDT [facility] Doxepine Negative Negative 09/23/2025 6:42 PM EDT [facility] Doxylamine Negative Negative 09/23/2025 6:42 PM EDT [facility] EDDP-Methadone metabolite Negative Negative 09/23/2025 6:42 PM EDT [facility] Fentanyl Negative Negative 09/23/2025 6:42 PM EDT [facility] Fluconazole Negative Negative 09/23/2025 6:42 PM EDT [facility] Fluoxetine Negative Negative 09/23/2025 6:42 PM EDT [facility] Guaifenesin Negative Negative 09/23/2025 6:42 PM EDT [facility] Haloperidol Negative Negative 09/23/2025 6:42 PM EDT [facility] Heroin/6-IZABELA Negative Negative 09/23/2025 6:42 PM EDT [facility] Hydrocodone Negative Negative 09/23/2025 6:42 PM EDT [facility] Hydroxyzine / Cetirizine metabolite Negative Negative 09/23/2025 6:42 PM EDT [facility] Ibuprofen Negative Negative 09/23/2025 6:42 PM EDT [facility] Imipramine Negative Negative 09/23/2025 6:42 PM EDT [facility] Ketamine Negative Negative 09/23/2025 6:42 PM EDT [facility] Labetolol Negative Negative 09/23/2025 6:42 PM EDT [facility] Lamotrigine Negative Negative 09/23/2025 6:42 PM EDT [facility] Levetiracetam Negative Negative 09/23/2025 6:42 PM EDT [facility] Lidocaine Negative Negative 09/23/2025 6:42 PM EDT [facility] MDA Negative Negative 09/23/2025 6:42 PM EDT [facility] MDMA Negative Negative 09/23/2025 6:42 PM EDT [facility] Memantine Negative Negative 09/23/2025 6:42 PM EDT [facility] Meperidine Negative Negative 09/23/2025 6:42 PM EDT [facility] Meprobamate Negative Negative 09/23/2025 6:42 PM EDT [facility] Metaxalone Negative Negative 09/23/2025 6:42 PM EDT [facility] Methamphetamine Negative Negative 6:42 PM EDT [facility] Methocarbamol Negative Negative 09/23/2025 6:42 PM EDT [facility] Methylecgonine Negative Negative 09/23/2025 6:42 PM EDT [facility] Metoclopramide Negative Negative 09/23/2025 6:42 PM EDT [facility] Metoprolol Positive(A) Negative 09/23/2025 6:42 PM EDT [facility] Metronidazole Negative Negative 09/23/2025 6:42 PM EDT [facility] Midazolam Negative Negative 09/23/2025 6:42 PM EDT [facility] Midazolam Metabolite Negative Negative 09/23/2025 6:42 PM EDT [facility] Mirtazapine Negative Negative 09/23/2025 6:42 PM EDT [facility] Misc Test Result Negative Negative 09/23/20 6:42 PM EDT [facility] Naproxen Negative Negative 09/23/2025 6:42 PM EDT [facility] Nefazodone Negative Negative 09/23/2025 6:42 PM EDT [facility] Norfentanyl Negative Negative 09/23/2025 6:42 PM EDT [facility] Nortriptyline Negative Negative 09/23/2025 6:42 PM EDT [facility] Ordanstron Negative Negative 09/23/2025 6:42 PM EDT [facility] Oxcarbazepine Negative Negative 09/23/2025 6:42 PM EDT [facility] Oxycodone Negative Negative 09/23/2025 6:42 PM EDT [facility] Paroxethine Negative Negative 09/23/2025 6:42 PM EDT [facility] Phenobarbital Negative Negative 09/23/2025 6:42 PM EDT [facility] Phentermine Negative Negative 09/23/2025 6:42 PM EDT [facility] Phenytoin Negative Negative 09/23/2025 6:42 PM EDT [facility] Primidone Negative Negative 09/23/2025 6:42 PM EDT [facility] Promethazine Negative Negative 09/23/2025 6:42 PM EDT [facility] Propofol Negative Negative 09/23/2025 6:42 PM EDT [facility] Propranolol Negative Negative 09/23/2025 6:42 PM EDT [facility] Quetiapine Negative Negative 09/23/2025 6:42 PM EDT [facility] Quinine Negative Negative 09/23/2025 6:42 PM EDT [facility] Rantidine Negative Negative 09/23/2025 6:42 PM EDT [facility] Sertraline Negative Negative 09/23/2025 6:42 PM EDT [facility] Spironolactone Negative Negative 09/23/2025 6:42 PM EDT [facility] Tizanidine Negative Negative 09/23/2025 6:42 PM EDT [facility] Topiramate Negative Negative 09/23/2025 6:42 PM EDT [facility] Tramadol Negative Negative 09/23/2025 6:42 PM EDT [facility] Trazadone/ Trazadone metabolite Negative Negative 09/23/2025 6:42 PM EDT [facility] Trimethoprim Negative Negative 09/23/2025 6:42 PM EDT [facility] Valproic Acid Negative Negative 09/23/2025 6:42 PM EDT [facility] Venlafaxine Negative Negative 09/23/2025 6:42 PM EDT [facility] Verapamil Negative Negative 09/23/2025 6:42 PM EDT [facility] Zolpidem Negative Negative 09/23/2025 6:42 PM EDT [facility] Xylazine Negative Negative 09/23/2025 6:42 PM EDT [facility] Urine Urine specimen obtained by clean catch procedure / Unknown Non-blood Collection / Unknown 09/21/2025 11:40 AM EDT 09/21/2025 11:40 AM EDT us Mason Barraza APRN LAB URINE ORDERABLES Final Res ult [facility] [address] [place] [address] * C-Reactive Protein, Plasma (09/21/2025 11:33 AM EDT) CRP, Plasma <3.0 <=8.0 mg/L 09/21/2025 12:57 PM EDT [facility] Blood Venous blood specimen / Unknown Venipuncture / Unknown 09/21/2025 11:33 AM EDT 09/21/2025 11:33 AM EDT Narrative [facility] - 09/21/2025 12:57 PM EDT This CRP test is appropriate for assessment of infection, systemic inflammation and/or tissue injury. To assess cardiovascular disease risk order high sensitivity CRP (CRPH). Mason Barraza APRN LAB BLOOD ORDERABLES Final Res ult Performing Organization Address City/[facility]/ZIP Co de Phone Number [facility] [address] [place] [address] * Sedimentation Rate, Automated (09/21/2025 11:33 AM EDT) Sedimentation Rate 7 <30 mm/hr 2024 12:53 PM EDT [facility] Blood Venous blood specimen / Unknown Venipuncture / Unknown 09/21/2025 11:33 AM EDT 09/21/2025 11:33 AM EDT Mason Barraza APRN LAB BLOOD ORDERABLES Final Res ult [facility] [address] [place] [address] * CBC and Differential (09/21/2025 11:33 AM EDT) WBC Count 7.40 3.70 - 10.30 10*3/uL LAB HEMATOLOGY METHOD 09/21/2025 12:42 PM EDT [facility] RBC Count 4.20 3.90 - 5.20 10*6/uL LAB HEMATOLOGY METHOD 09/21/2025 12:42 PM EDT [facility] HGB 12.7 11.2 - 15.7 g/dL LAB HEMATOLOGY METHOD 09/21/2025 12:42 PM EDT [facility] HCT 38.1 34.0 - 45.0 % LAB HEMATOLOGY METHOD 09/21/2025 12:42 PM EDT [facility] Platelet Count 217 155 - 369 10*3/uL LAB HEMATOLOGY METHOD 09/21/2025 12:42 PM EDT [facility] MCV 91 79 - 98 fL LAB HEMATOLOGY METHOD 09/21/2025 12:42 PM EDT [facility] MCH 30.2 26.0 - 32.0 pg LAB HEMATOLOGY METHOD 09/21/2025 12:42 PM EDT [facility] MCHC 33.3 30.7 - 35.5 g/dL LAB HEMATOLOGY METHOD 09/21/2025 12:42 PM EDT [facility] RDW 13.0 11.5 - 14.5 % LAB HEMATOLOGY METHOD 09/21/2025 12:42 PM EDT [facility] MPV 12.4 8.8 - 12.5 fL LAB HEMATOLOGY METHOD 09/21/2025 12:42 PM EDT [facility] nRBC 0.0 <=0.0 per 100 WBCs LAB HEMATOLOGY METHOD 09/21/2025 12:42 PM EDT [facility] Differential Type Automated LAB HEMATOLOGY METHOD 09/21/2025 12:42 PM EDT [facility] Neutrophils % 53 % LAB HEMATOLOGY METHOD 09/21/2025 12:42 PM EDT [facility] Lymphocytes % 35 % LAB HEMATOLOGY METHOD 09/21/2025 12:42 PM EDT [facility] Monocytes % 7 % LAB HEMATOLOGY METHOD 09/21/2025 12:42 PM EDT [facility] Eosinophils % 4 % LAB HEMATOLOGY METHOD 09/21/2025 12:42 PM EDT [facility] Basophils % 1 % LAB HEMATOLOGY METHOD 09/21/2025 12:42 PM EDT [facility] Immature Granulocytes % 0 % LAB HEMATOLOGY METHOD 09/21/2025 12:42 PM EDT [facility] Neutrophils Absolute 3.91 1.60 - 6.10 10*3/uL LAB HEMATOLOGY METHOD 09/21/2025 12:42 PM EDT [facility] Lymphocytes Absolute 2.61 1.20 - 3.90 10*3/uL LAB HEMATOLOGY METHOD 09/21/2025 12:42 PM EDT [facility] Monocytes Absolute 0.53 0.30 - 0.90 10*3/uL LAB HEMATOLOGY METHOD 09/21/2025 12:42 PM EDT [facility] Eosinophils Absolute 0.28 0.00 - 0.50 10*3/uL LAB HEMATOLOGY METHOD 09/21/2025 12:42 PM EDT [facility] Basophils Absolute 0.04 0.00 - 0.10 10*3/uL LAB HEMATOLOGY METHOD 09/21/2025 12:42 PM EDT [facility] Immature Granulocytes Absolute 0.03 0.00 - 0.06 10*3/uL LAB HEMATOLOGY METHOD 09/21/2025 12:42 PM EDT [facility] Blood Venous blood specimen / Unknown Venipuncture / Unknown 09/21/2025 11:33 AM EDT 09/21/2025 11:33 AM EDT Narrative [facility] - 09/21/2025 12:42 PM EDT Therapeutic decision making should be based on absolute values, rather than percentages. us Mason Barraza APRN LAB BLOOD ORDERABLES Final Res ult [facility] [address] [place] [address] * Hepatic Function Panel (09/21/2025 11:33 AM EDT) Direct Bilirubin, Plasma <0.2 <=0.3 mg/dL 09/21/2025 12:57 PM EDT [facility] Alkaline Phosphatase, Plasma 78 46 - 142 U/L 09/21/2025 12:57 PM EDT [facility] Total Bilirubin, Plasma 0.3 0.2 - 1.1 mg/dL 09/21/2025 12:57 PM EDT [facility] Albumin, Plasma 4.1 3.5 - 5.2 g/dL 09/21/2025 12:57 PM EDT [facility] Total Protein 7.0 6.3 - 7.9 g/dL 09/21/2025 12:57 PM EDT [facility] ALT, Plasma 17 10 - 35 U/L 09/21/2025 12:57 PM EDT [facility] AST, Plasma 17 10 - 35 U/L 09/21/2025 12:57 PM EDT [facility] Blood Venous blood specimen / Unknown Venipuncture / Unknown 09/21/2025 11:33 AM EDT 09/21/2025 11:33 AM EDT Mason June Christi FAUSTINN LAB BLOOD ORDERABLES Final Res ult Performing Organization Address [facility] de Phone Number [facility] [address] [place] [phone] * Creatinine, Plasma (09/21/2025 11:33 AM EDT) Creatinine, Plasma 0.86 0.60 - 1.10 mg/dL 09/21/2025 12:57 PM EDT [facility] eGFRcr 76.5 mL/min/1.7 3m*2 09/21/2025 12:57 PM EDT [facility] Comment:Reported eGFRcr in m L/min/1.73m2 is based the CKD-EPI 2020 equation that does not use a race coefficient. Blood Venous blood specimen / Unknown Venipuncture / Unknown 09/21/2025 11:33 AM EDT 09/21/2025 11:33 AM EDT Mason June Christi MENDIETA LAB BLOOD ORDERABLES Final Res ult Performing Organization Address [facility] Co de Phone Number [facility] [address] [place] [address] documented in this encounter Visit Diagnoses Diagnosis Seropositive rheumatoid arthritis of multiple sites (CMS/HCC)- Primary Other secondary osteoarthritis of multiple sites Fibromyalgia Unspecified myalgia and myositis High risk medication use Tobacco abuse Tobacco use disorder documented in this encounter Additional Health Concerns Assessment Noted Time PHQ-9 Depression Total Score: 0 09/21/20 25 10:45 AM EDT A fall risk assessment has been complete d for the patient 09/21/2025 10:45 AM EDT A Body Mass Index follow-up plan has been documented for the patient 09/21/2025 11:05 AM EDT documented as of this encounter Care Teams Allergy And Immunology Specialist Relationship Specialty Start Date End Date Edy Valdes[facility] [address] PCP - General 01/16/23 documented as of this encounter
--- OUTSIDE RECORDS SUMMARY | 2025-10-06 15:45 | XMS_ITS | Encounter Summary ---
Author Organization Healthcare Address [address] [place] [address] Care Team Providers Care Filler Shredder Name Role Phone Omid Allen MD Primary Care Provider [phone]- [phone] Edy Valdes APRN Primary Care Provider [phone]- [phone] Reason for Visit * Reason Comments Med Refill Encounter Details Date Type Department Care Team (Late st Contact Info) Description 05/29/2022 Refill [facility] [address] [place] [address] Cherelle Samuel MD [address] [place] [address] Seropositive rheumatoid arthritis of multiple sites (CMS/HCC) Social History Tobacco Use Types Packs/Day Years [...] Description 03/26/2026 9:00 AM EDT Office Visit [facility] [address] [place] [address] Mason Barraza, PROGRESS WORKER [address] [place] [address] documented as of this encounter Visit Diagnoses Diagnosis Seropositive rheumatoid arthritis of multiple sites (CMS/[facility]) documented in this encounter Additional Health Concerns Assessment Noted Time A fall risk assessment has been complete d for the patient 12/31/2021 9:52 AM EST documented as of this encounter Care Teams Filler Shredder Relationship Specialty Start Date End Date Omid Allen MD [address] [place] [address] PCP - General 04/12/21 01/15/23 Edy Valdes APRN [address] [place] [address] PCP - General 01/16/23 documented as of this encounter
--- OUTSIDE RECORDS SUMMARY | 2025-10-06 15:46 | XMS_ITS | Encounter Summary ---
Author Organization [facility] Address [address] [place] [address] Care Team Providers Care Assistant Passenger Locomotive Engineer Name Role Phone Edy Valdes GAYATRI Primary Care Provider [phone]- [phone] Encounter Details Date Type Department Care Team (Late st Contact Info) Description 09/25/2025 Results Follow-Up [facility] Specialties [address] [place] [address] Mason Barraza, GAYATRI [address] [place] [address] Social History Tobacco Use Types Packs/Day Years [...] Description 03/26/2026 9:00 AM EDT Office Visit [facility] [address] [place] [address] Mason Barraza, HELIARC WELDER [address] [place] [address] documented as of this encounter Visit Diagnoses Not on filedocumented in this encounter Additional Health Concerns Assessment Noted Time PHQ-9 Depression Total Score: 0 09/21/20 25 10:45 AM EDT A fall risk assessment has been complete d for the patient 09/21/2025 10:45 AM EDT A Body Mass Index follow-up plan has been documented for the patient 09/21/2025 11:05 AM EDT documented as of this encounter Care Teams Assistant Passenger Locomotive Engineer Relationship Specialty Start Date End Date Edy Valdes, GAYATRI [address] [place] [address] PCP - General 01/16/23 documented as of this encounter
--- OUTSIDE RECORDS SUMMARY | 2025-10-06 15:46 | XMS_ITS | Clinical Summary ---
Author Organization [facility] Address [address] [place] [address] Care Team Providers Care Ship Harbor Pilot Name Role Phone RosendaEdy fowler Chan MENDIETA Primary Care Provider +1- [phone] Allergies No known active allergies Medications Calcium Carb-Cholecalcife rol 500-600 MG-UNIT tablet Take by mouth 1 (one) time each day. 04/20/20 17 Active levothyroxine (Synthroid, Levoxyl) 75 MCG tablet Take 1 tablet (75 mcg) by mouth 1 (one) time each day. 05/10/20 19 Active diclofenac (Voltaren) 75 MG EC tabletIndications :Other secondary osteoarthritis of multiple sites Take 1 tablet by mouth 2 times a day. Do not crush, chew, or split. 180 tablet 09/21/20 25 Active gabapentin (Neurontin) 300 MG capsuleIndication s:Fibromyalgia Take 1 capsule by mouth 3 times a day. 270 capsule 1 09/21/20 25 Active etanercept (Enbrel SureClick) 50 MG/ML injectionIndicati ons:Seropositive rheumatoid arthritis of multiple sites (CMS/HCC) Inject 1 mL under the skin 1 time per week. 4 mL 6 09/22/20 25 Active gabapentin (Neurontin) 300 MG capsuleIndication s:Fibromyalgia Take 1 capsule (300 mg) by mouth in the morning and 1 capsule (300 mg) in the evening and 1 capsule (300 mg) before bedtime. 270 capsule 1 02/16/20 25 025 Discontinued(Re order) etanercept (Enbrel SureClick) 50 MG/ML injectionIndicati ons:Seropositive rheumatoid arthritis of multiple sites (CMS/HCC) Inject 1 mL (50 mg) under the skin 1 (one) time per week. 4 mL 7 02/16/20 25 025 Discontinued(Re order) diclofenac (Voltaren) 75 MG EC tabletIndications :Other secondary osteoarthritis of multiple sites TAKE 1 TABLET BY MOUTH TWICE DAILY NEEDED FOR SEVERE PAIN DO NOT CRUSH, CHEW, OR SPLIT 180 tablet 08/08/20 025 Discontinued(Re order) etanercept (Enbrel SureClick) 50 MG/ML injectionIndicati ons:Seropositive rheumatoid arthritis of multiple sites ([facility]) Inject 1 mL under the skin 1 time per week. 4 mL 6 09/21/20 25 025 Discontinued Active Problems Problem Noted Date Diagnosed Date Osteoarthritis 11/02/2019 Osteopenia 10/04/2018 Elevated liver enzymes 04/20/2018 Osteoarthritis of shoulders, bilateral 7 Goiter 10/20/2016 Rheumatoid arthritis 10/20/2016 Knee pain 03/02/2015 Rotator cuff dysfunction 03/02/2015 Elevated glucose 12/22/2014 Lumbago 12/22/2014 Encounters Date Type Department Care Team Description 09/25/2025 Results Follow-Up [facility] Medicine Specialties [address] [place] [address] Mason Barraza APRN 09/21/2025 11:00 AM EDT Office Visit [facility] [address] [place] [address] Mason Barraza, GAYATRI Seropositive rheumatoid arthritis of multiple sites ([facility]) (Primary Dx); Other secondary osteoarthritis of multiple sites; Fibromyalgia; High risk medication use; Tobacco abuse 09/21/2025 Refill [facility] Medicine Specialties [address] [place] [address] Lea Joe, ZainD Seropositive rheumatoid arthritis of multiple sites ([facility]) (Primary Dx) 09/21/2025 Travel 09/13/2025 Telephone [facility] Medicine Specialties [address] [place] [address] Mason Barraza APRN 09/12/2025 Telephone [facility] [address] [place] [address] Juan Zamudio Med Refill 08/08/2025 Refill [facility] [address] [place] [address] Cherelle Samuel MD Other secondary osteoarthritis of multiple sites from Last 3 Months Immunizations Immunization Administration Dates Next Due Influenza, Unspecified 11/27/2014 Degardo COVID-19 Vaccine (Blue Cap) 18+ 07/18/20 21 [...] Mass Index 26.41 09/21/2025 10:42 AM EDT Plan of Treatment Upcoming Encounters Date Type Department Care Team (Late st Contact Info) Description 03/26/2026 9:00 AM EDT Office Visit [facility] [address] [place] [address] Mason Barraza W, OUTSOLE TACKER [address] [place] [address] Health Maintenance Due Date Last [...] (2 of 2 - PCV) 11/27/2015 11/27/2014 [id number] Vaccine (2 - Edgardo risk series) 08/15/2021 07/18/2021 [facility]-RSV Vaccine: 60+ Years or (1 - Risk 60-74 years 1-dose series) 2023 [facility]-Influenza Vaccine (#1) 2025 11/27/2014 [facility]-Depression Screening 09/21/2026 09/21/2025, 08/31 [facility]-Hepatitis C Screening Completed 06/06/2015 [facility]-Obesity Intervention Completed 025, 02/15/2025, 08/02/2024, Additional history exists HPV Vaccines Aged Out [...] Procedure Name Priority Date/Time Associated Diagnosis Comments COMPREHENSIVE URINE DRUG SCREENING,QUALITATIVE ASSAY, >= 27 DRUG CLASSES Routine 09/21/2025 11:40 AM EDT Seropositive rheumatoid arthritis of multiple sites (CMS/HCC) Other secondary osteoarthritis of multiple sites Fibromyalgia High risk medication use CREATININE, PLASMA Routine 09/21/2025 11 :33 AM EDT Seropositive rheumatoid arthritis of multiple sites (CMS/HCC) High risk medication use HEPATIC FUNCTION PANEL Routine 09/21/2025 11:33 AM EDT Seropositive rheumatoid arthritis of multiple sites (CMS/HCC) High risk medication use CBC WITH AUTO DIFFERENTIAL Routine 09/21/2025 11:33 AM EDT Seropositive rheumatoid arthritis of multiple sites (CMS/HCC) High risk medication use SEDIMENTATION RATE, AUTOMATED Routine 09/21/2025 11:33 AM EDT Seropositive rheumatoid arthritis of multiple sites (CMS/HCC) High risk medication use C-REACTIVE PROTEIN, PLASMA Routine 09/21/2025 11:33 AM EDT Seropositive rheumatoid arthritis of multiple sites ([facility]/HCC) High risk medication use HEPATITIS C ANTIBODY W/REFLEX TO HCV QUANT PCR Routine 06/06/2015 1:08 PM EDT from Last 3 Months or Most Recently Relevant to Health Maintenance Results * (ABNORMAL) Comprehensive Urine Drug Screening, Qualitative Assay, >= 27 Drug Classes (1:40 AM EDT) Acetaminophen Negative Negative 09/23/2025 6:42 [...] 11:40 AM EDT 09/21/2025 11:40 AM EDT Mason Colemanfarshad FAUSTINN LAB URINE ORDERABLES Final Res ult Performing Organization Address [facility] Co de Phone Number [facility] [address] [place] [address] * Creatinine, Plasma (09/21/2025 11:33 AM EDT) [...] ORDERABLES Final Res ult Performing Organization Address [facility] Phone Number [facility] [address] [place] [address] * Sedimentation Rate, Automated (09/21/2025 11:33 AM EDT) Sedimentation Rate 7 <30 mm/hr 2024 12:53 PM EDT [facility] Blood Venous blood specimen / Unknown Venipuncture / Unknown 09/21/2025 11:33 AM EDT 09/21/2025 11:33 AM EDT Mason Colemanfarshad OUTSOLE TACKER LAB BLOOD ORDERABLES Final Res ult Performing Organization Address City/[facility] Co de Phone Number [facility] [address] [place] [address] * CBC and Differential (09/21/2025 11:33 AM EDT) [facility] WBC Count 7.40 3.70 - 10.30 10*3/uL [...] based on absolute values, rather than percentages. Mason Barraza APRN LAB BLOOD ORDERABLES Final Res ult [facility] [address] [place] [address] * C-Reactive Protein, Plasma (09/21/2025 11:33 AM EDT) Pathologist [facility] CRP, Plasma <3.0 <=8.0 mg/L 09/21/2025 12:57 [...] risk order high sensitivity CRP (CRPH). Mason Colemanfarshad MENDIETA LAB BLOOD ORDERABLES Final Res ult Performing Organization Address City/[facility]/ZIP Co de Phone Number [facility] [address] [place] [address] * Hepatic Function Panel (09/21/2025 11:33 AM EDT) Pathologist [facility] Direct Bilirubin, Plasma <0.2 <=0.3 mg/dL 09/21/2025 [...] 11:33 AM EDT 09/21/2025 11:33 AM EDT us Mason Colemanfarshad FAUSTINN LAB BLOOD ORDERABLES Final Res ult Performing Organization Address City/[facility]/ZIP Co de Phone Number [facility] [address] [place] [address] * Hepatitis C Antibody (06/06/2015 1:08 PM EDT) Pathologist [facility] Hepatitis C Antibody NEGATIVE Reference Range: Negative SUNQUEST 06/06/2015 1:08 PM EDT 06/06/2015 1:43 PM EDT us Historical Provider LAB BLOOD ORDERABLES Final R esult SUNQUEST from Last 3 Months or Most Recently Relevant to Health Maintenance Insurance [facility] Care Teams Ship Harbor Pilot Relationship Specialty Start Date End Date Edy Valdes APRN [address] [place] [address] PCP - General 01/16/23
--- OUTSIDE RECORDS SUMMARY | 2025-10-06 15:46 | XMS_ITS | Encounter Summary ---
Author Organization Healthcare Address [address] [place] [address] Care Team Providers Care Induction Heating Equipment Setter Name Role Phone Edy Valdes GAYATRI Primary Care Provider +1- [phone] Encounter Details Date Type Department Care Team (Late st Contact Info) Description 09/21/2025 Refill [facility] [address] [place] [phone] Lea Joe, PharmD [address] [place] [address] Seropositive rheumatoid arthritis of multiple sites (CMS/HCC) (Primary Dx) Social History Tobacco Use Types Packs/Day Years [...] on file documented as of this encounter Functional Status * Over the past 2 weeks, how often have you been bothered by any of the following problems? Question Answer Date of Assessment Author Little interest or pleasure in doing things Not at all 09/21/2025 10:45 AM EDT Jaison Avila Feeling down, depressed, or hopeless Not at all 09/21/2025 10:45 AM EDJaison Smalls Patient Health Questionnaire -2 Score 0 09/21/2025 [...] television Not at all 09/21/2025 10:45 AM EDJaison Smalls Moving or speaking so slowly that other people could have noticed? Or the opposite - being so fidgety or restless that you have been moving around a lot more than usual. Not at all 09/21/2025 10:45 AM EDT Jaison Avila Thoughts that you would be b niles off or hurting yourself in some way Not at all 09/21/2025 10:45 AM EDJaison Smalls Patient Health Questionnaire -9 Score 0 09/21/2025 10:45 AM EDJaison Smalls * How difficult have these problems made it for you to do your work, take care of things at home, or get along with other people? Answer Date of Assessment Author Not difficult at all 09/21/2025 10:45 AM EDT Jaison White documented as of this encounter Miscellaneous Notes * Addendum Note - Corina Nobles PharmD - 09/22/2025 11:15 AM EDTAddended by: CORINA NOBLES on: 09/22/2025 11:15 AM Modules accepted: Orders * Telephone Encounter - NoblesCorina ndiaye PharmD - 09/22/2025 11:06 AM EDT Resent prescription(s) to requested pharmacy due to: Prescription(s) sent to wrong pharmacy. Confirmed script(s) is cancelled at original pharmacy. Fax received from [email or web address] to send prescription to [facility]. * Telephone Encounter - Lea Joe PharmD - 09/21/2025 11:07 AM EDT 1 medication(s) has been approved per protocol. documented in this encounter Plan of Treatment Upcoming Encounters Date Type Department Care Team (Late st Contact Info) Description 03/26/2026 9:00 AM EDT Office Visit [facility] Medicine Specialties [address] [place] [address] Mason Barraza APRN [address] [place] [address] documented as of this encounter Visit Diagnoses Diagnosis Seropositive rheumatoid arthritis of multiple sites (CMS/[facility])- Primary documented in this encounter Additional Health Concerns Assessment Noted Time PHQ-9 Depression Total Score: 0 09/21/20 25 10:45 AM EDT A fall risk assessment has been complete d for the patient 09/21/2025 10:45 AM EDT A Body Mass Index follow-up plan has been documented for the patient 09/21/2025 11:05 AM EDT documented as of this encounter Care Teams Induction Heating Equipment Setter Relationship Specialty Start Date End Date Edy Valdes APRN [address] [place] [address] PCP - General 01/16/23 documented as of this encounter
--- OUTSIDE RECORDS SUMMARY | 2025-10-06 15:46 | XMS_ITS | Encounter Summary ---
Author Organization [facility] Address [address] [place] [address] Care Team Providers Care Feeder Catcher Tobacco Name Role Phone RosendaEdy fowler GAYATRI Primary Care Provider +1- [phone] Reason for Visit * Reason Onset Date Comments Med Refill 09/13/2025 Encounter Details Date Type Department Care Team (Late st Contact Info) Description 09/12/2025 Telephone [facility] [address] [place] [id number] Juan Zamudio Med Refill Social History Tobacco Use Types Packs/Day Years [...] as of this encounter Miscellaneous Notes * Telephone Encounter - Richa Aleman - 09/14/2025 9:32 AM EDT Received call from patient Patient returning call to clinic Advised that clinic was calling to move appt up for med renewal Scheduled patient follow up on 09/21 at 11a Patient verbalized understanding, no questions or concerns at this time CB: [phone] * Telephone Encounter - Genesis Wallace - 09/12/2025 4:41 PM EDT LVM for PT to call back to move appt up. PT can be seen by Analia Page should she call back. Reach out to [facility] or [facility] for assistance if needed. * Telephone Encounter - Cherelle Samuel MD - 09/12/2025 2:47 PM EDT Needs appointment with Sandra or some one to renew her medication. * Progress Notes - Heidi Fragoso, PharmD - 09/12/2025 10:52 AM EDT Refill request does not meet protocol. Sending to clinic for review. Additional info: Appointment compliance - Patient has not followed up in clinic as requested. Please review for scheduling and if refills are appropriate. documented in this encounter Plan of Treatment Upcoming Encounters Date Type Department Care Team (Late st Contact Info) Description 03/26/2026 9:00 AM EDT Office Visit [facility] Medicine Specialties [address] [place] [address] Mason Barraza, GAYATRI [address] [place] [address] documented as of this encounter Visit Diagnoses Diagnosis Seropositive rheumatoid arthritis of multiple sites (CMS/HCC) documented in this encounter Additional Health Concerns Assessment Noted Time A fall risk assessment has been complete d for the patient 02/15/2025 12:28 PM EDT A Body Mass Index follow-up plan has been documented for the patient 02/15/2025 12:52 PM EDT documented as of this encounter Care Teams Feeder Catcher Tobacco Relationship Specialty Start Date End Date Edy Valdes APRN [address] [place] [address] PCP - General 01/16/23 documented as of this encounter
--- OUTSIDE RECORDS SUMMARY | 2025-10-06 15:46 | XMS_ITS | Encounter Summary ---
Author Organization Healthcare Address [address] [place] [address] Care Team Providers Care Deli Worker Name Role Phone Edy Vlades GAYATRI Primary Care Provider +1- [phone] Encounter Details Date Type Department Care Team (Latest Contact Info) Description 09/21/2025 Travel Social History Tobacco Use Types Packs/Day Years [...] Jaison White documented as of this encounter Plan of Treatment Upcoming Encounters Date Type Department Care Team (Late st Contact Info) Description 03/26/2026 9:00 AM EDT Office Visit [place] [facility] Specialties [address] [place] [address] Mason Barraza, MEDIA STRATEGIST [address] [place] [address] documented as of this encounter [...] documented as of this encounter Care Teams Deli Worker Relationship Specialty Start Date End Date Edy Valdes APRN [address] [place] [address] PCP - General 01/16/23 documented as of this encounter
--- OUTSIDE RECORDS SUMMARY | 2025-10-06 15:46 | XMS_ITS | Encounter Summary ---
Author Organization Healthcare Address [address] [place] [address] Care Team Providers Care Benzene Operator Name Role Phone Edy retana GAYATRI Primary Care Provider +1- [phone] Encounter Details Date Type Department Care Team (Late st Contact Info) Description 09/13/2025 Telephone [place] [facility] Special[facility] [address] [place] [address] Mason Barraza, DIRECTOR OF CRITICAL CARE [address] [place] [address] Social History Tobacco Use Types [...] encounter Miscellaneous Notes * Telephone Encounter - AndrewAnthonyMariana T - 09/13/2025 9:35 AM EDT Clinical Concern/Question Reason for Call: Pt is returning call. Please call. Best contact number: [phone] (mobile) Optimal time of day to reach caller: late afternoon Additional comments/information from caller: None Note: Please do not reply to this message. Follow-up communication and further actions as a result of this message need to be communicated with the patient directly, if the patient is not active onMyChart. If the patient is active on MyChart, they will receive notification of the communication/outcome via MyChart. documented in this encounter Plan of Treatment Upcoming Encounters Date Type Department Care Team (Late st Contact Info) Description 03/26/2026 9:00 AM EDT Office Visit [facility] Medicine Specialties [address] [place] [address] Mason Barraza APRN [address] [place] [address] documented as of this encounter Visit Diagnoses Not on filedocumented in this encounter Additional Health Concerns Assessment Noted Time A fall risk assessment has been complete d for the patient 02/15/2025 12:28 PM EDT A Body Mass Index follow-up plan has been documented for the patient 02/15/2025 12:52 PM EDT documented as of this encounter Care Teams Benzene Operator Relationship Specialty Start Date End Date Edy Valdes APRN [address] [place] [address] PCP - General 01/16/23 documented as of this encounter
--- OUTSIDE RECORDS SUMMARY | 2025-10-06 15:46 | XMS_ITS | Encounter Summary ---
Author Organization Healthcare Address [address] [place] [address] Care Team Providers Care Veterinary Parasitologist Name Role Phone Edy retana Chan MENDIETA Primary Care Provider +1- [phone] Reason for Visit * Reason Comments Med Refill Encounter Details Date Type Department Care Team (Late st Contact Info) Description 08/08/2025 Refill [facility] [address] [place] [address] Cherelle Samuel MD [address] [place] [address] Other secondary osteoarthritis of multiple [...] Description 03/26/2026 9:00 AM EDT Office Visit [place] [facility] [address] [place] [address] Mason Barraza APRN [address] [place] [address] documented as of this encounter [...] documented as of this encounter Care Teams Veterinary Parasitologist Relationship Specialty Start Date End Date Edy Valdes APRN [address] [place] [address] PCP - General 01/16/23 documented as of this encounter
--- OUTSIDE RECORDS SUMMARY | 2025-10-06 15:46 | XMS_ITS | Data Portability ---
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 Assessment Encounter Date Assessment Date Assessment [...] rapid strep group A, throat 2023 024 [facility], [address] [place] [address], [address], 4 15:23:31 rapid SARS CoV + SARS CoV 2 Ag, QL IA, respiratory specimen 2023 024 [facility], [address] [place] [address], [address], 4 11:48:23 rapid flu (A+B) 2023 024 [facility], [address] [place] [address], [address], 4 11:48:24 rapid SARS CoV + SARS CoV 2 Ag, QL IA, respiratory specimen 2022 023 [facility], [address] [place] [address], [address], 3 15:58:24 rapid flu (A+B) 2022 023 [facility], [address] [place] [address], [address], 3 15:58:26 rapid strep group A, throat 2022 023 [facility], [address] [place] [address], [address], 3 15:58:28 Referral cardiologis t referral - today at 145 2024 025 TONE Sanchez MD, [address] [place] [address], [address], 5 15:23:51 Procedures None recorded. Surgeries None recorded. Imaging electrocard iogram 2024 025 [facility], [address] [place] [address], [address], 5 13:32:26 Medication Orders amoxicillin 500 mg tablet 2023 024 [facility], [address], [address], 5 11:46:15 prednisone 20 mg tablet 2023 024 [facility], [address], [address], 5 11:46:38 fluticasone propionate 50 mcg/actuati on nasal spray,suspe nsion 2023 024 [facility], [address], [address], 5 11:51:56 Zithromax Z-Suresh 250 mg tablet 2023 024 [facility], [address], [address], 4 14:24:57 Zithromax Z-Suresh 250 mg tablet 2022 023 [facility], [address], [address], 4 14:24:57 prednisone 20 mg tablet 2022 024 [facility], [address], [address], 5 11:46:38 Patient TargetsNo targets recorded. Patient InstructionsNo instructions recorded. Reason for Referral Gis Consultant Referral for Br adycardia today at 145 Referring Physician: Edy Valdes, Family Medicine, Encounter Date: 07/11/2025 Results Created Date Observation Date Name Description Value Unit Range Abnormal Flag Note LastModifiedBy Organization Detail LastModifiedTime 10/09/2010/09/2023 rapid SARS CoV + SARS CoV 2 Ag, QL IA, respi rator y speci men SARS CoV antigen Negati ve Not Available [address], [address], 10/09/2023 15:38:57 10/09/20 23 10/09/2023 rapid flu (A+B) Flu negati ve Not Available [address], [address], 10/09/2023 15:39:03 10/09/20 23 10/09/2023 rapid flu (A+B) Type Both A & B Not Available [address], [address], 10/09/2023 15:39:03 10/09/20 23 10/09/2023 rapid strep group A, throa t Strep negati ve Not Available [address], [address], 10/09/2023 15:39:10 10/09/20 23 10/09/2023 rapid strep group A, throa t Culture No Not Available [address], [address], 10/09/2023 15:39:10 12/01/19 24 12/01/2023 rapid flu (A+B) Flu negati ve Not Available [address], [address], 12/01/2023 10:38:58 12/01/19 24 12/01/2023 rapid flu (A+B) Type Both A & B Not Available [address], [address], 12/01/2023 10:38:58 12/01/19 24 12/01/2023 rapid SARS CoV + SARS CoV 2 Ag, QL IA, respi rator y speci men SARS CoV antigen Negati ve Not Available [address], [address], 12/01/2023 10:38:52 05/09/20 24 05/09/2024 rapid strep group A, throa t Strep positi ve Not Available [address] [place], [address], 05/09/2024 15:20:02 05/09/20 24 05/09/2024 rapid strep group A, throa t Culture No Not Available [address], [place], [address], 05/09/2024 15:20:02 07/10/20 25 07/10/2025 elect rocar diogr am No observ ation record ed. [address], [address], 07/10/2025 13:14:22 07/10/20 25 07/10/2025 XR, chest , 2 view No observ ation record ed. [email or web address], [place], [address], 07/10/2025 14:18:00 07/10/20 25 07/10/2025 US, doppl er, venou s No observ ation record ed. [place] [id number], [place], [address], 07/10/2025 16:39:13 07/10/20 25 07/10/2025 elect rocar diogr am No observ ation record ed. [place] [id number], [place], [address], 07/11/2025 08:23:11 07/21/20 25 07/10/2025 elect rocar diogr am No observ ation record ed. [email or web address] [address], [address], 07/26/2025 09:19:31 07/28/20 25 07/27/2025 NM, myoca rdial perfu antonina scan, w/ stres s No observ [facility]ion [facility] [address], [place], [address], 08/01/2025 15:50:49 07/28/20 25 07/27/2025 cardi ac stres s test No observ ation record ed. [facility] [address], [place], [address], 08/01/2025 14:40:55 07/29/20 25 07/27/2025 stres s echoc ardio gram with doppl er color flow (PROC ) No observ ation record ed. [facility] [address], [place], [address], 08/01/2025 14:37:43 08/28/20 25 08/25/2025 CT, angio gram, chest , w/ contr ast No observ ation record ed. [facility] [address], [place], [address], 08/28/2025 13:12:17 08/30/20 25 08/29/2025 CT, head + brain , w/o contr ast No observ ation record ed. [facility] [address], [place], [address], 08/31/2025 09:11:46 Result Notes None recorded. Problems Name Problem SNOMED Code Status Onset Date Resolution Date Notes Provider Name and Address Organization Details Recorded Time Goiter 8977442 Active 2015 [place] - [facility] 6 10:04:03 Hypothyroidism 50322409 Active 2015 Brittney Nobles, EXPRESSIVE THERAPIST [address], [place], [address], [place] - [facility] 6 10:31:42 Rheumatoid arthritis 76438630 Active 2015 Mary Lou garcia [place] - [facility] 6 10:04:55 Osteopenia 002623647 Active 2017 Brittney Nobles, EXPRESSIVE THERAPIST [address], [place], [address], [place] - [facility] 8 20:53:47 Problem Notes None recorded. Procedures Surgical History Date Name Laterality Status Provider Name and Address Organization Details Recorded Time 07/11/20 25 Medication Reconcilliation completed Mickie Hutchinson [place] - [facility] 07/11/2025 08:14:45 10/04/20 18 Date of Last Mammogram completed Brittney Nobles APRN [address], [place], [address], [place] - [facility] 10/05/2018 09:25:32 10/04/20 18 Most Recent Bone Density completed Brittney Nobles APRN [address], [place], [address], [facility] - [facility] 10/04/2018 20:53:11 09/20/20 18 Date of Last Pap Smear completed Brittney Nobles APRN [address], [place], [address], [facility] - [facility] 09/22/2018 14:22:49 08/22/20 15 Thyroidectomy completed Brittney Nobles EXPRESSIVE THERAPIST [address], [place], [address], [place] - [facility] 10/20/2016 10:31:17 Tonsillectomy completed Mary Lou Munroe [place] - [facility] 10/20/2016 10:08:33 Imaging Results None [...] tablet TAKE 1 TABLET BY MOUTH ONCE DAILY. REQUIRED APPOINTM ENTS FOR FUTURE REFILLS 2024 active Not Available [...] Disconti nued on: 07/28/20 16 9:51AM;U ser: [email or web address]; Est. Completi on: 10/13/20 15;Indic ation: Hyperthy roidism - (2429 );Phar [email or web address] fied: 08/14/20 15 11:56AM Not Available Not Available Not Available fluticaso ne propionat e 50 mcg/actua tion nasal spray,aric pension [place] 1 spray every day by intranas al [...] Status: Recorded on: 07/17/20 15 2:16PM;U ser: [email or web address] Not Available Not Available Not Available Mucinex [...] Updated DateTime 4 165.1 cm 27.6 kg/m2 00381.3 3 g 99.2 [degF] 110 /min 96 % 96 % 18 /min 5 124/78 mm[Hg] Mickie SOFIA - [facility] 4 10:34:53 Date Recorded Body height Body mass index (BMI) Body weight Body temperature Heart rate Oxygen saturation Oxygen saturation in Arterial blood by Pulse oximetry Respiratory rate Pain severity - 0-10 verbal numeric rating [Score] - Reported Systolic And Diastolic Provider Name and Address Organization Details Last Updated DateTime 4 165.1 cm 26.3 kg/m2 91218.5 9 g 98.1 [degF] 87 /min 97 % 97 % 18 /min 0 120/78 mm[Hg] Mickie SOFIA - [facility] 4 14:37:49 Date Recorded Body weight Body temperature Heart rate Oxygen saturation Oxygen saturation in Arterial blood by Pulse oximetry Respiratory rate Pain severity - 0-10 verbal numeric rating [Score] - Reported Systolic And Diastolic Provider Name and Address Organization Details Last Updated DateTime 5 57839.8 g 98 [degF] 74 /min 97 % 97 % 18 /min 0 86/60 mm[Hg] Mickie Hutchinson [facility] 5 11:55:10 Date Recorded Body weight Heart rate Oxygen saturation Oxygen saturation in Arterial blood by Pulse oximetry Respiratory rate Pain severity - 0-10 verbal numeric rating [Score] - Reported Body temperature Systolic And Diastolic Provider Name and Address Organization Details Last Updated DateTime 5 59974.4 5 g 57 /min 98 % 98 % 18 /min 2 98.1 [degF] 110/68 mm[Hg] Mickie Hutchinson [facility] [place] 5 08:21:01 Date Recorded Body height Body mass index (BMI) Body weight Body temperature Heart rate Oxygen saturation Oxygen saturation in Arterial blood by Pulse oximetry Respiratory rate Pain severity - 0-10 verbal numeric rating [Score] - Reported Systolic And Diastolic Provider Name and Address Organization Details Last Updated DateTime 3 165.1 cm 27.1 kg/m2 52260.5 6 g 97.9 [degF] 95 /min 97 % 97 % 18 /min 7 122/78 mm[Hg] Mickie Hutchinson [facility] [place] 3 15:37:42 Social History Question Answer Notes LastModified by Organizat ion Details LastModified Time Tobacco Smoking Status Current Some Day Smoker Tiffanie garcia [facility] [place] 08/10/2017 09:38:00 Do You Have An Advance Directive? No [email or web address] Information not available 10/20/2016 Are You Blind Or Do You Have Difficulty Seeing? No [email or web address] Information not available 10/20/2016 Is Blood Transfusion Acceptable In An Emergency? Yes [email or web address] Information not available 10/20/2016 What Is Your Level Of Caffeine Consumption? Occasional [email or web address] Information not available 10/20/2016 How Much Tobacco Do You Chew? None [email or web address] Information not available 10/20/2016 Are You Deaf Or Do You Have Serious Difficulty Hearing? No [email or web address] Information not available 10/20/2016 What Type Of Diet Are You Following? REGULAR [email or web address] Information not available 10/20/2016 Which Illicit Or Recreational Drugs Have You Used? None [email or web address] Information not available 01/12/2017 What Is The Highest Grade Or Level Of School You Have Completed Or The Highest Degree You Have Received? QC13082-1 [email or web address] Information not available 09/20/2018 How Many Days Of Moderate To Strenuous Exercise, Like A Brisk Walk, Did You Do In The Last 7 Days? 0 [email or web address] Information not available 09/20/2018 On Those Days [...] Like Food, Housing, Medical Care, And Heating? US04708-8 [email or web address] Information not available 09/20/2018 What Is The Fluoride Status Of Your Home? Unknown Information not available 09/12/2022 Live Alone Or With Others? With Others [email or web address] Information not available 10/20/2016 Do You Have A Medical Power Of Roofer Applicator? No Information not available 09/12/2022 What Was The Date Of Your Most Recent Tobacco Screening? 07/10/2025 Information not available 07/10/2025 How Many Children Do You Have? 3 Information not available 10/20/2016 Performs Monthly Self-breast Exam? Yes [email or web address] Information no t available 10/20/2016 Do You Use Protection During Sex? Always [email or web address] Information not available 10/20/2016 What Is Your Relationship Status? Information not available 10/20/2016 Seat Belts Used Routinely Yes [email or web address] Information not available 10/20/2016 Are You Sexually Active? Yes [email or web address] Information not available 10/20/2016 Do You Have Smoke And Carbon Monoxide Detectors In Your Home? Yes Information not available 09/12/2022 At What Age Did You Start Smoking Tobacco? 12 [email or web address] Information not available 10/20/2016 Are You Passively Exposed To Smoke? Yes Information no t available 09/12/2022 General Stress Level Low Information not available 10/20/2016 Do You Use Sunscreen Routinely? No [email or web address] Information not available 10/20/2016 Has Tobacco Cessation Counseling Been Provided? Yes [email or web address] Information not available 08/10/2017 On What Date Was Tobacco Cessation Counseling Provided? 07/10/2025 Information not available 07/10/2025 How Many Years Have You Smoked Tobacco? 39 [email or web address] Information not available 10/20/2016 Do You Have Difficulty Walking Or Climbing Stairs? No [email or web address] Information not available 10/20/2016 Sex: Female Functional Status Question Answer Note LastModified by Organizat ion Details LastModified Time What is your level of alcohol consumption? None [email or web address] Information not available 10/20/2016 Are you currently employed? Yes [email or web address] Information not available 10/20/2016 Do you have transportation difficulties? No Information not available 09/12/2022 Urinary incontinence assessment performed? Yes [email or web address] Information not available 08/10/2017 Are you able to walk independently without assistance or assistive devices? YESWOREST [email or web address] Information not available 06/29/2017 Do you have difficulty doing errands alone? No Information not available 10/20/2016 Are you able to care for yourself independently? 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 No [email or web address] Information not available 10/20/2016 What is your exercise level? None [email or web address] Information not available 10/20/2016 Mental Status Question Answer Note LastModified by Organizat ion Details LastModified Time Do you feel stressed (tense, restless, nervous, or anxious, or unable to sleep at night)? DA1779-2 [email or web address] Information not available 09/20/2018 Do you have difficulty concentrating, remembering or making decisions? No [email or web address] Information no t available 10/20/2016 Family History Relationship Description Onset Age of this Age Resolved Age Notes LastModified by Organization Details LastModified Time Mother Chronic obstructive pulmonary disease [email or web address] Not available 2015 10:05:41 Father Malignant neoplasm of colon [email or web address] Not available 08/10 09:36:49 Maternal Grandmother Diabetes mellitus [email or web address] Not available 08/10 09:37:07 Paternal Grandmother Diabetes [...] colitis N Cerebrovascular Disease N Depression N Guillain-Willmar N Sleep Apnea N Aneurysm N Bronchitis [...] Vaccine Type Date Status Note Provider Nam meena and Address Organization Details Recorded Time influenza, unspecified formulation [address] [facility] 12/01/2023 10:29:57 pneumococcal polysaccharide PPV23 [address] [facility] 12/01/2023 10:29:57 COVID-19 vaccine, vector-nr, rS-Ad26, PF, 0.5 mL 1 completed Mickie garcia, [place] - [facility] 09/15/2022 09:46:23 MMR 8 completed Mickie garcia, [place] - [facility] 09/15/2022 09:46:23 varicella 8 completed Mickie garcia, [place] - [facility] 09/15/2022 09:46:23 Past Encounters Encounter ID Performer Location Encounter Start Date Encounter Closed Date Diagnosis/Indication Diagnosis SNOMED-CT Code Diagnosis ICD10 Code Diagnosis IMO Codes Diagnosis Note [id number] [facility] [address] [place] [address] 07/27/2008 00:00:00 [id number] [facility] [address] [place] [address] 09/10/2009 00:00:00 [id number] [facility] [address] [place] [address] 03/27/2010 00:00:00 [id number] [facility] [address] [place] [address] 03/27/2010 00:00:00 [id number] [facility] [address] [place] [address] 10/17/2010 00:00:00 [id number] [facility] [address] [place] [address] 04/24/2011 00:00:00 [id number] [facility] [address] [place] [address] 07/09/2011 00:00:00 [id number] [facility] [address] [place] [address] 10/09/2011 00:00:00 [id number] [facility] [address] [place] [address] 12/29/2013 00:00:00 [id number] [facility] [address] [place] [address] 07/06/2014 00:00:00 [id number] [facility] [address] [place] [address] 12/17/2011 00:00:00 [id number] [facility] [address] [place] [address] 2014 00:00:00 [id number] [facility] [address] [place] [address] 04/16/2012 00:00:00 [id number] [facility] [address] [place] [address] 11/27/2014 00:00:00 [id number] [facility] [address] [place] [address] 12/22/2012 00:00:00 [id number] [facility] [address] [place] [address] 12/19/2014 00:00:00 [id number] [facility] [address] [place] [address] 02/28/2015 00:00:00 [id number] [facility] [address] [place] [address] 12/16/2013 00:00:00 [id number] [facility] [address] [place] [address] 12/29/2013 00:00:00 [id number] [facility] [address] [place] [address] 03/12/2015 00:00:00 [id number] [facility] [address] [place] [address] 06/04/2015 00:00:00 [id number] [facility] [address] [place] [address] [address] 07/17/2015 00:00:00 [id number] [facility] [address] [place] [address] [address] 07/17/2015 00:00:00 [id number] [facility] [address] [place] [address] [address] 08/14/2015 00:00:00 [id number] [facility] [address] [place] [address] 08/27/2015 00:00:00 [id number] [facility] [address] [place] [address] [address] 11/20/2015 00:00:00 [id number] GAYATRI Santiago PIPE MANUFACTURE SUPERVISOR [address] [place] [address] [place] [address] 10/20/2016 09:46:10 10/20/2016 10:18:31 Surveillance of depot contraception done 0049623543 9104 Z30.42 Hypothyroidism 46134273 E03.9 [id number] GAYATRI Santiago PIPE MANUFACTURE SUPERVISOR [address] [place] [address] [place] [address] 01/12/2017 09:48:11 01/12/2017 10:15:47 Uses depot contraception 045828911 Z30.42 [id number] GAYATRI Santiago PIPE MANUFACTURE SUPERVISOR [address] [place] [address] [place] [address] 04/06/2017 09:08:32 04/06/2017 09:36:06 Surveillance of depot contraception done 7605117009 9104 Z30.42 [id number] GAYATRI Santiago PIPE MANUFACTURE SUPERVISOR 7 [facility] [place] [address] 06/29/2017 09:13:23 06/29/2017 09:47:11 Contraception care management 487023435 Z30.9 [id number] Brittney Mallorie EXPRESSIVE THERAPISTElidia Ponce PIPE MANUFACTURE SUPERVISOR 7 [facility] [place] [address] 08/10/2017 09:23:46 08/10/2017 10:21:59 Body mass index 30+ - obesity 842853029 Z68.39 Routine gy necologic examination done 1359109694 9101 Z01.419 Examinatio n of blood pressure 942864657 Z01.30 BP goal < 140/90 Depression screening 171 520539 Z13.89 Diet education 29799887 Z71.3 0751-6810 calorie diet recommende d with emphasis on low saturated fat, low carbohydra te, and adequate protein intake. She declines dietary consult. Counseling 459748312 Z71 .9 Exercise counselgeorges onofre. Patient encouraged to exercise 30 minutes 5 days a week. Screening for malignant neoplasm of breast 465129522 Z12.31 Screening for malignant neoplasm of cervix 326499843 Z12.4 Z11.51 Z11.8 Amenorrhea 41872922 N91. 2 Rheumatoid arthritis 698 13232 M06.9 Hypothyroidism 04587073 E89.0 Cigarette smoker 3057412 7 F17.210 Tobacco use discourage d. Techniques for quitting smoking discussed including pharmaceut icals (Nicotine patches, gum, Zyban, and Chantix) and behavioral therapy (Ludwig Elizabeth). Immediate and vermin exterminator cardiovasc ular and respirator y benefits of smoking cessation discussed. Lung cancer risk reduction also discussed. Therapeuti c drug monitoring assay 91052055 Z51.81 M06.9 [id number] GAYATRI Santiago PIPE MANUFACTURE SUPERVISOR 7 [facility] [place] [address] 09/20/2018 09:59:14 09/20/2018 11:15:30 Routine gynecologic examination done 5550947200 9101 Z01.419 Examinatio n of blood pressure 984246086 Z01.30 BP goal < 140/90 Depression screening 171 678557 Z13.89 Diet education 61844711 Z71.3 0257-2633 calorie diet recommende d with emphasis on low saturated fat, low carbohydra te, and adequate protein intake. She declines dietary consult. Counseling 833097920 Z71 .82 Exercise counselgeorges onofre. Patient encouraged to exercise 30 minutes 5 days a week. Vaccine de clined by patient 3071500148 02 Z28.21 Screening for malignant neoplasm of breast 730136267 Z12.31 Screening for malignant neoplasm of colon 687882481 Z12.11 Postmenopausal state 764 16200 Z78.0 Screening for malignant neoplasm of cervix 387688150 Z12.4 Z11.51 Z11.8 Rheumatoid arthritis 698 48736 M06.9 Body mass index 25-29 - overweight 802678013 Z68.27 [id number] Edy Valdes [place] [address] 09/12/2022 11:09:26 09/12/2022 12:03:38 Adult health examination 521402163 Z00.00 [id number] Edy Valdes [place] [address] 09/15/2022 09:27:03 09/15/2022 09:41:36 Adult health examination 541244848 Z00.00 [id number] Edy Valdes [place] [address] 12/02/2022 14:31:36 12/02/2022 15:34:13 Pain of right ankle joint 0382878281 0416512 M25.571 xrays and steroids if no improvemen t call dr gamboa [id number] Edy Valdes [address] [address] 12/04/2022 10:27:06 12/04/2022 11:08:53 Goiter 3595797 E04.9 Pain of ri ght ankle joint 1038080693 5826329 M25.571 Needs to call for appointmen t [facility] [id number] Edy Valdes [address] [address] 01/08/2023 09:31:40 01/08/2023 09:48:41 Conjunctivitis 7791013 H10.9 contact precaution sif worsen or no improvemen t return [id number] [place] [address] 10/09/2023 15:14:18 10/09/2023 16:00:23 Acute bronchitis 99395591 J20.9 [id number] [facility] [address] 12/01/2023 10:13:27 12/01/2023 12:08:55 Acute maxillary sinusitis 34933577 J01.00 [id number] [facility] [place] [address] 05/09/2024 14:21:06 05/09/2024 15:23:55 Acute serous otitis media of bilateral ears 8590847504 502039 H65.03 Streptococ aden sore throat 32613024 J02.0 contact precaution s discussedi f no improvemen t return [id number] [place] [address] 07/10/2025 11:42:23 07/10/2025 12:09:58 Low blood pressure 69730660 I95.9 65793501 ekg done-sent to ed [facility] [id number] [facility] [address] 07/11/2025 08:01:21 07/11/2025 10:24:27 Bradycardia 75684560 R00.1 [id number] cardiology appoint at 145 today Headache 02521368 R51.9 [id number] will order outpt iv fluids order sent to [facility] out pt Health Concerns Section Related Observation LastModified by Organization Detai ls LastModified Time None Recorded Concern Status LastModified by Organization Details LastModified Time None Recorded Advance Directives Directive N: Payers Insurance Date Sequence Insurance Name Policy Number Policy Chen Covered Member ID Chen Member ID Guarantor Name 01/09/2017 1 [place] [id number] Monique Linder [id number] Monique Chinchillaer 08/31/2025 1 [facility] [id number] Monique Linder [id number] Monique Chinchillaer 12/04/2022 1 [place] [id number] Monique Chinchillaer [id number] Monique Uriarte Kailash 12/01/2023 1 [place] [id number] Monique Chinchillaer [id number] Monique Linder Notes Date Note Type Note Provider Name and Address Organization Details Recorded Time 10/09/2023 text/html 58 yr old female presents for cough, sore throat and congestion since Thursday. Edy Valdes APRN [address], [place], [address], [place] - [facility] 10/09/2023 15:59:19 12/01/2023 text/html 58 yr old female presents with cough and congestion for a few weeks, fever started yesterday. now having green thick drainage and sinus pressure Edy Valdes APRN [address], [place], [address], [place] - [facility] 12/01/2023 11:49:48 05/09/2024 text/html ROS as noted in the HPI 58 yr old female presents with cough, sinus drainage and sore throat. She reports having a fever at times. Edy Valdes APRN [address], [place], [address], [place] - [facility] 05/09/2024 15:23:53 07/10/2025 text/html [...] ext. Edy Valdes APRN [address], [place], [address], [place] - [facility] 07/10/2025 13:32:45 07/11/2025 text/html Emergency Depart ment Follow-Up RecordReported by PatientEmergency Room Follow-Up RecordFor discharge information, patient reportsname of hospital/urgent care patient was seen: [facility]),patient presented to hospital/urgent care on or [...] headache. pt states she believes fluids helped. Valerierenesouth Keisha, [employer] [address], [place], [address], [facility] - [facility] 07/11/2025 09:43:11 OBGyn Episode Ob Episode Information Episode Created Date Number of Fetuses Patient Bloodtype Patient rh Status Prepregnancy Weight lbs Domestic Partner Domestic Partner Phone Father Name Straw Baler Status 08/10/20 17 1 CLOSED Fetus Data [...] Domestic Partner Domestic Partner Phone Father Name Straw Baler Status 08/10/20 17 1 CLOSED Fetus Data [...] Domestic Partner Domestic Partner Phone Father Name Straw Baler Status 08/10/20 17 1 CLOSED Fetus Data [...]
[2025-10-06 15:57] LABS: Hematocrit 38.3 % (37.0-47.0); Hemoglobin 12.6 g/dL (12.2-16.2); Immature Granulocytes % 0.4 %; Mean Corpuscular HGB Conc 32.9 g/dL (31.8-35.4); Mean Corpuscular Hemoglobin 30.0 pg (27.0-31.2); Mean Corpuscular Volume 91.2 fl (81-99); Nucleated Red Blood Cells % 0 %; Platelet Count 222 K/mm3 (142-424); Red Blood Count 4.20 M/mm3 (4.20-5.40); Red Cell Distribution Width-SD 43.1 fL; White Blood Count 9.0 K/mm3 (4.8-10.8)
[2025-10-06 16:32] LABS: Anion Gap 8.8 mEq/L (5-15); Blood Urea Nitrogen 18 mg/dl (7-17); Calcium 9.9 mg/dl (8.4-10.2); Carbon Dioxide 27 mmol/L (22.0-30.0); Chloride 103 mmol/L (98-107); Creatinine,Serum 0.90 mg/dl (0.52-1.04); Estimated Glomerular Filt Rate 63 ml/min (>60); GFR (African American) 77 ML/MIN (>60); Glucose 124 mg/dl (74-100); Potassium 3.8 mmoL/L (3.5-5.1); Sodium 135 mmol/L (136-145)
== END 2025-10-06 23:59 | disposition home or self-care (01) ==
LOC: LAB 15:44
PROVIDERS: PCP Nurse Practitioner Family; Visit Provider Internal Medicine
DX: I25.10 Atherosclerotic heart disease of native coronary artery without angina pectoris (principal)
CPT/HCPCS: 36415; 80048; 85025